=== PATIENT | male | born 1970 | race Caucasian/White ===

== ENCOUNTER 2017-07-14 07:53 | Observation (INO) | payer BC, SELFPAY ==
[2017-07-14] VITALS (30 sets, daily range): BP systolic 115–162; BP diastolic 76–109; PULSE 65–112; RESP 14–20; TEMP 36.4–37.1; O2SAT 91–99; BMI 37.0
--- NOTE | 2017-07-14 | IR_ITS ---
CARDIAC CATHETERIZATION DATE OF CATHETERIZATION:07/14/2017 11:43 AM PROCEDURES: 1. Left heart catheterization 2. Left ventriculogram 3. Selective coronary angiogram 4. Drug-eluting stent deployment to the mid codominant right coronary artery 5. Drug-eluting stent deployment to the proximal mid distal codominant circumflex artery INDICATION FOR TEST: 1. Acute non-ST elevation myocardial infarction 2. Coronary artery disease Informed consent was obtained prior to the procedure. COMPLICATIONS: None ESTIMATED BLOOD LOSS: Less than 10 ml. TECHNIQUE: One percent lidocaine used to anesthetize the right anterior aspect of the wrist. The right radial artery was accessed via the Seldinger technique. A 6 [place] sheath was placed in the right radial artery. 2.5 mg of verapamil, 800 mcg of nitroglycerin and 5000 U Heparin were given through the arterial sheath. The trap catheter was also used to perform left heart catheterization left ventriculogram and selective coronary angiogram. At the end the diagnostic angiogram and additional 9000 units of heparin was administered giving an ACT of 386 seconds. An LivelyFeed left guide catheter was used intubate the right coronary artery and a BMW wire was placed distally 3.25 x 38 mm Xience stent was deployed at 24 bre reducing the stenosis to 0%. NIYAH-3 flow was present before and after the procedure. Following this the same catheter was used intubate the left main artery. Ultimately a 3.25 x 38 mm and 3.25 x 15 mm Xience stent was placed in the proximal mid and distal segment in a contiguous manner. A 4 mm x 12 mm resolute Dax stent was then placed in the distal segment. Multiple balloons were used but eventually a 4 mm balloon was taken at 20 bre up and down the vessel in order to post dilate the 3 stents that were placed. NIYAH-3 flow was present before and after the procedure. Second ACT was 322 seconds therefore an additional 2000 units of heparin was administered with the closing ACT of 328 seconds. Patient was transferred to the postop holding area in stable condition ANGIOGRAPHIC RESULTS: 1. The left main artery normal 2. The left anterior descending artery has proximal 20-30% stenosis with mid vessel 10% stenoses 3. The circumflex artery is a codominant vessel and has a proximal concentric 90% stenosis followed by 70% stenoses and a distal eccentric 80-90% stenosis. 4. The right coronary artery is codominant and has mid vessel 10-20% stenoses and a distal long 80-90% stenosis followed by an additional 50% distal stenosis 5. The KHAN ventriculogram reveals normal 65% 6. The left ventricular end-diastolic pressure elevated at 20 mmHg IMPRESSION: 1. Critical 2 vessel coronary artery disease as described above 2. Successful stenting of the proximal mid distal circumflex artery critical disease reduced to 0% with 3 drug-eluting stents postdilated with a 4 mm noncompliant balloon at 20 bre 3. Successful stenting of the distal dominant right coronary artery severe disease reduced to 0% with 1 drug-eluting stent 4. Normal ejection fraction 5. Mildly elevated LVEDP PLAN: 1. Brilinta and aspirin 2. LDL less than 55 3. Control of hypertension 4. Avoidance of tobacco products 5. Cardiac rehabilitation
--- NOTE | 2017-07-14 07:55 | XR_ITS ---
XR chest 2V HISTORY: ITS.REASON: CHEST PAIN ORDERING PHYSICIAN: Sundar Briggs MD PATIENT AGE: 46 years COMPARISON: None available FINDINGS: The cardiomediastinal silhouette and pulmonary vascularity are within normal limits. The lungs are clear without infiltrates, suspicious nodules, or pleural effusions. No acute bony abnormalities. IMPRESSION: Negative chest, no acute finding
--- NOTE | 2017-07-14 08:14 | HMH.EDCP ---
ED Disposition Clinical Impression: Non-STEMI (non-ST elevated myocardial infarction), Hyperglycemia Disposition: Still a Patient Condition on Discharge: Serious - Critical Care Critical Care Time: Yes Attestation: On , the high probability of a clinically significant, sudden or life threatening deterioration of the following system(s) required my full and direct attention, intervention and personal management. The time I documented below is in addition to time spent performing reported procedures but includes the following listed in this critical care notation. Total Critical Care Time: 35 Vital system(s) involved:: Circulatory Failure (non-STEMI) My critical care processes included: Assessment & monitoring of V/S, Initial and Re-exams, Data Review/Interpretation, Coordinating Care, Medication Orders and management, Documentation Medical Decision Making Vital Signs: 07/14/17 07:57 07/14/17 08:19 07/14/17 08:40 Temperature 97.7 F Temperature Source Oral Pulse Rate [Right Brachial] 106 H 95 H 96 H Respiratory Rate 20 20 20 Blood Pressure [Right Arm] 159/100 147/104 162/106 Blood Pressure Mean [Right Arm] 119 118 124 Blood Pressure Source [Right Arm] Automatic Cuff Manual Cuff/ Doppler Automatic Cuff Blood Pressure Position [Right Arm] Sitting Sitting Sitting 02 Sat by Pulse Oximetry 99 96 93 L Oxygen Delivery Method Room Air Room Air Room Air 07/14/17 08:52 07/14/17 09:00 07/14/17 09:21 Temperature Temperature Source Pulse Rate [Right Brachial] 98 H 108 H 103 H Respiratory Rate 18 18 18 Blood Pressure [Right Arm] 156/102 158/103 150/100 Blood Pressure Mean [Right Arm] 120 121 116 Blood Pressure Source [Right Arm] Automatic Cuff Automatic Cuff Automatic Cuff Blood Pressure Position [Right Arm] Sitting Sitting Sitting 02 Sat by Pulse Oximetry 93 L 91 L 92 L Oxygen Delivery Method Room Air Room Air Room Air 07/14/17 09:48 Temperature Temperature Source Pulse Rate [Right Brachial] 101 H Respiratory Rate 16 Blood Pressure [Right Arm] 126/82 Blood Pressure Mean [Right Arm] 96 Blood Pressure Source [Right Arm] Automatic Cuff Blood Pressure Position [Right Arm] Sitting 02 Sat by Pulse Oximetry 95 Oxygen Delivery Method Room Air - Lab Data Lab Results 07/14/17 08:10: WBC 12.2 H, RBC 5.89, Hgb 17.9, Hct 54.8 H, MCV 93.0, MCH 30.4, MCHC 32.7, RDW 12.8, Plt Count 215, MPV 8.5, Neut % (Auto) 60.3, Lymph % (Auto) 31.9, [place] % (Auto) 5.6, Eos % (Auto) 1.4, Baso % (Auto) 0.8, Neut # (Auto) 7.4, Lymph # (Auto) 3.9, [place] # (Auto) 0.7, Eos # (Auto) 0.2, Baso # (Auto) 0.1 07/14/17 09:20: Sodium 133 L, Potassium 4.5, Chloride 98, Carbon Dioxide 26, Anion Gap 13.5, BUN 13, Creatinine 0.91, Estimated Creat Clear 199, Estimated GFR 89, Est GFR ( Amer) 108, Glucose 303 H, Calcium 8.9, Total Bilirubin 0.5, AST 94 H, ALT 59, Alkaline Phosphatase 67, Total Creatine Kinase 803 H*, CK-MB (CK-2) 85.8 H*, CK-MB (CK-2) Rel Index 10.7 H*, Troponin I 13.52 H, Total Protein 8.0, Albumin 3.9, Globulin 4.1 H, Albumin/Globulin Ratio 1.0 L Result diagrams: 07/14/17 08:10 07/14/17 09:20 Orders (Tests/Meds): ED MEDICATIONS Generic Name Dose Route Start Last Admin Trade Name Freq PRN Reason Stop Dose Admin Diphenhydramine HCl 50 mg 07/14/17 09:50 Benadryl 50mg/1ml Vial IV 07/14/17 09:51 ONCE ONE Fentanyl Citrate 25 mcg 07/14/17 09:50 Fentanyl 100mcg/2ml Vial IV 07/15/17 09:50 Q3MINP PRN Moderate to Severe Pain Fentanyl Citrate 50 mcg 07/14/17 09:50 Fentanyl 100mcg/2ml Vial IV 07/15/17 09:50 Q3MINP PRN Moderate to Severe Pain Flumazenil 0.2 mg 07/14/17 09:50 Romazicon 0.1mg/Ml 5ml Vial IV 07/14/17 23:00 NEEDED PRN Sedation Heparin Sodium (Porcine) 10,000 unit 07/14/17 09:50 Heparin 1,000 Units/Ml 10ml Vial (Chemical Operator) IV 07/14/17 13:50 NEEDED PRN Emergency Box Account Executive Heparin Sodium/Sodium Chloride 3,000
[2017-07-14 08:29] LABS: Basophils # 0.1 K/mm3 (0-0.2); Basophils % 0.8 % (0.1-2.0); Eosinophils # 0.2 K/mm3 (0.0-0.4); Eosinophils % 1.4 % (0.1-12.0); Hematocrit 54.8 % (42.0-52.0); Hemoglobin 17.9 g/dL (14.1-18.0); Lymphocytes # 3.9 K/mm3 (0.7-4.5); Lymphocytes % 31.9 K/mm3 (10-50); Mean Corpuscular HGB Conc 32.7 g/dL (31.8-35.4); Mean Corpuscular Hemoglobin 30.4 pg (27.0-31.2); Mean Platelet Volume 8.5 fl (7.4-10.4); Monocytes # 0.7 K/mm3 (0.1-1.0); Monocytes % 5.6 % (1.7-9.3); Neutrophils # 7.4 K/mm3 (1.8-7.8); Neutrophils % 60.3 % (37.0-80.0); Platelet Count 215 K/mm3 (142-424); Red Blood Count 5.89 M/mm3 (4.60-6.20); Red Cell Distribution Width 12.8 % (11.5-17.5); White Blood Count 12.2 K/mm3 (4.8-10.8)
[2017-07-14 09:13] LABS: Alanine Aminotransferase 59 U/L (12-78); Albumin Level 3.9 gm/dL (3.4-5.0); Alkaline Phosphatase 67 U/L (46-116); Bilirubin,Total 0.5 mg/dL (0.2-1.0); Blood Urea Nitrogen 13 mg/dL (7-18); Calcium 8.9 mg/dL (8.5-10.1); Carbon Dioxide 26 mmol/L (21.0-32.0); Creatinine Clearance Estimated 199 mL/min (0-300); Creatinine,Serum 0.91 mg/dL (0.70-1.30); Estimated Glomerular Filt Rate 89 ml/min (>60); GFR (African American) 108 ML/MIN (>60); Globulin 4.1 gm/dl (1.3-3.2); Glucose 303 mg/dL (74-106)
--- NOTE | 2017-07-14 09:48 | PC.NURSE ---
LAB CALLED TO REPORT TROPONIN =13. DR GUDINO CALLED AND HERE TO SEE PATIENT. PATIENT TO BE SENT TO [facility]PERATIONS MANAGER
--- NOTE | 2017-07-14 09:52 | PC.NURSE ---
PT SPEAKING WITH DR GUDINO AT THIS TIME. 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
[2017-07-14 09:57] LABS: Anion Gap 13.5 mEq/L (5-15); CKMB Relative Index 10.7 U/L (0-4.0); Chloride 98 mmol/L (98-107); Creatine Kinase 803 U/L (39-308); Sodium 133 mmol/L (136-145)
[2017-07-14 10:00] LABS: Creatine Kinase MB 85.8 mg/ml (0.0-3.6); Troponin I 13.52 ng/ml (0.00-0.06)
[2017-07-14 10:01] LABS: Aspartate Amino Transferase 94 U/L (15-37); Potassium 4.5 mmoL/L (3.5-5.1)
--- NOTE | 2017-07-14 10:12 | HMH.CARDCON2 ---
History of Present Illness Consult date: 07/14/17 Consult reason: chest pain Chief complaint: chest pain History of present illness: 46 yo WM seen in ER for chest pain with radiation to neck and back. Symptoms started yesterday and have been present to some degree all night. Symptoms resolved in ER with NTG paste. EKG is sinus with some slight ST segment depression in the anterior leads. Initial troponin is 15. Cardiology consulted for evaluation. Pt is a 2 ppd smoker for >20 yrs. relates some FSBS in the 200-400 range when she checks it but pt has never been diagnosed with DM. No history of HTN or HLD. Pt states he doesn't go to the doctor. Review of Systems - *Cardiovascular Reports chest pain - *Respiratory Reports shortness of breath - *Gastrointestinal Reports nausea, Denies vomiting - *Neurologic Reports tingling [facility] History Medical History: Denies:: Cancer, Diabetes Mellitus Type 1, Diabetes Mellitus Type 2, MRSA Amputation: No Fractures: No - *Social History Smoking Status: Current every day smoker Tobacco Type: cigarettes Alcohol Intake: never - Psychiatric History Expresses thoughts of harming self/others: None Suicide Plan Description: No Plan Meds Home Medications Medication Instructions Recorded Confirmed Type No Known Home Medications [No 07/14/17 07/14/17 History Known Home Medications] Allergies Allergy/AdvReac Type Severity Reaction Status Date / Time No Known Allergies Allergy Verified 07/14/17 07:54 Exam Vital signs and Labs for Last 24 Hours: Temp Pulse Resp BP Pulse Ox 97.7 F 101 H 16 126/82 95 07/14/17 07:57 07/14/17 09:48 07/14/17 09:48 07/14/17 09:48 07/14/17 09:48 Laboratory Results - last 24 hr 07/14/17 08:10: WBC 12.2 H, RBC 5.89, Hgb 17.9, Hct 54.8 H, MCV 93.0, MCH 30.4, MCHC 32.7, RDW 12.8, Plt Count 215, MPV 8.5, Neut % (Auto) 60.3, Lymph % (Auto) 31.9, [place] % (Auto) 5.6, Eos % (Auto) 1.4, Baso % (Auto) 0.8, Neut # (Auto) 7.4, Lymph # (Auto) 3.9, [place] # (Auto) 0.7, Eos # (Auto) 0.2, Baso # (Auto) 0.1 07/14/17 09:20: Sodium 133 L, Potassium 4.5, Chloride 98, Carbon Dioxide 26, Anion Gap 13.5, BUN 13, Creatinine 0.91, Estimated Creat Clear 199, Estimated GFR 89, Est GFR ( Amer) 108, Glucose 303 H, Calcium 8.9, Total Bilirubin 0.5, AST 94 H, ALT 59, Alkaline Phosphatase 67, Total Creatine Kinase 803 H*, CK-MB (CK-2) 85.8 H*, CK-MB (CK-2) Rel Index 10.7 H*, Troponin I 13.52 H, Total Protein 8.0, Albumin 3.9, Globulin 4.1 H, Albumin/Globulin Ratio 1.0 L I & O for Last 24 hours: Intake & Output 07/11/17 07/12/17 07/13/17 07/14/17 11:59 11:59 11:59 11:59 Weight 312 lb - *Routine Neck Exam Absent: JVD, carotid bruit - *Routine Respiratory Exam Present: CTA bilaterally - *Routine Cardiovascular Exam Present: RRR. Absent: murmur, gallop, rubs - *Routine Extremities Exam Absent: edema - *Routine Neurological Exam Present: alert, oriented X3, moving all extremities Results 07/14/17 08:10 07/14/17 09:20 Cardiac Enzymes 07/14/17 Range/Units 09:20 AST 94 H (15-37) U/L CK-MB (CK-2) 85.8 H* (0.0-3.6) mg/ml Troponin I 13.52 H (0.00-0.06) ng/ml CBC 07/14/17 Range/Units 08:10 WBC 12.2 H (4.8-10.8) K/mm3 RBC 5.89 (4.60-6.20) M/mm3 Hgb 17.9 (14.1-18.0) g/dL Hct 54.8 H (42.0-52.0) % Plt Count 215 (142-424) K/mm3 Neut # (Auto) 7.4 (1.8-7.8) K/mm3 Lymph # (Auto) 3.9 (0.7-4.5) K/mm3 [place] # (Auto) 0.7 (0.1-1.0) K/mm3 Eos # (Auto) 0.2 (0.0-0.4) K/mm3 Baso # (Auto) 0.1 (0-0.2) K/mm3 Comprehensive Metabolic Panel 07/14/17 Range/Units 09:20 Sodium 133 L (136-145) mmol/L Potassium 4.5 (3.5-5.1) mmoL/L Chloride 98 (98-107) mmol/L Carbon Dioxide 26 (21.0-32.0) mmol/L BUN 13 (7-18) mg/dL Creatinine 0.91 (0.70-1.30) mg/dL Glucose 303 H (74-106) mg/dL Calcium 8.9 (8.5-10.1) mg/dL AST 94 H (15-37) U/L ALT 59 (1
--- NOTE | 2017-07-14 10:15 | P.CONS_ITS ---
History of Present Illness Consult date: 07/14/17 Consult reason: chest pain Chief complaint: chest pain History of present illness: 46 yo WM seen in ER for chest pain with radiation to neck and back. Symptoms started yesterday and have been present to some degree all night. Symptoms resolved in ER with NTG paste. EKG is sinus with some slight ST segment depression in the anterior leads. Initial troponin is 15. Cardiology consulted for evaluation. Pt is a 2 ppd smoker for >20 yrs. relates some FSBS in the 200-400 range when she checks it but pt has never been diagnosed with DM. No history of HTN or HLD. Pt states he doesn't go to the doctor. Review of Systems - *Cardiovascular Reports chest pain - *Respiratory Reports shortness of breath - *Gastrointestinal Reports nausea, Denies vomiting - *Neurologic Reports tingling [facility] History Medical History: Denies:: Cancer, Diabetes Mellitus Type 1, Diabetes Mellitus Type 2, MRSA Amputation: No Fractures: No - *Social History Smoking Status: Current every day smoker Tobacco Type: cigarettes Alcohol Intake: never - Psychiatric History Expresses thoughts of harming self/others: None Suicide Plan Description: No Plan Meds Home Medications Medication Instructions Recorded Confirmed Type No Known Home Medications [No 07/14/17 07/14/17 History Known Home Medications] Allergies Allergy/AdvReac Type Severity Reaction Status Date / Time No Known Allergies Allergy Verified 07/14/17 07:54 Exam Vital signs and Labs for Last 24 Hours: Temp Pulse Resp BP Pulse Ox 97.7 F 101 H 16 126/82 95 07/14/17 07:57 07/14/17 09:48 07/14/17 09:48 07/14/17 09:48 07/14/17 09:48 Laboratory Results - last 24 hr 07/14/17 08:10: WBC 12.2 H, RBC 5.89, Hgb 17.9, Hct 54.8 H, MCV 93.0, MCH 30.4, MCHC 32.7, RDW 12.8, Plt Count 215, MPV 8.5, Neut % (Auto) 60.3, Lymph % (Auto) 31.9, [place] % (Auto) 5.6, Eos % (Auto) 1.4, Baso % (Auto) 0.8, Neut # (Auto) 7.4 , Lymph # (Auto) 3.9, [place] # (Auto) 0.7, Eos # (Auto) 0.2, Baso # (Auto) 0.1 07/14/17 09:20: Sodium 133 L, Potassium 4.5, Chloride 98, Carbon Dioxide 26, Anion Gap 13.5, BUN 13, Creatinine 0.91, Estimated Creat Clear 199, Estimated GFR 89, Est GFR ( Amer) 108, Glucose 303 H, Calcium 8.9, Total Bilirubin 0.5, AST 94 H, ALT 59, Alkaline Phosphatase 67, Total Creatine Kinase 803 H*, CK -MB (CK-2) 85.8 H*, CK-MB (CK-2) Rel Index 10.7 H*, Troponin I 13.52 H, Total Protein 8.0, Albumin 3.9, Globulin 4.1 H, Albumin/Globulin Ratio 1.0 L I & O for Last 24 hours: Intake & Output 07/11/17 07/12/17 07/13/17 07/14/17 11:59 11:59 11:59 11:59 Weight 312 lb - *Routine Neck Exam Absent: JVD, carotid bruit - *Routine Respiratory Exam Present: CTA bilaterally - *Routine Cardiovascular Exam Present: RRR. Absent: murmur, gallop, rubs - *Routine Extremities Exam Absent: edema - *Routine Neurological Exam Present: alert, oriented X3, moving all extremities Results 07/14/17 08:10 07/14/17 09:20 Cardiac Enzymes 07/14/17 Range/Units 09:20 AST 94 H (15-37) U/L CK-MB (CK-2) 85.8 H* (0.0-3.6) mg/ml Troponin I 13.52 H (0.00-0.06) ng/ml CBC 07/14/17 Range/Units 08:10 WBC 12.2 H (4.8-10.8) K/
--- NOTE | 2017-07-14 10:18 | PC.NURSE ---
LAB CALLED WITH CRITICALS CK:803 CKMB: 85.[address] FIERRO AWARE
--- NOTE | 2017-07-14 10:58 | PC.NURSE ---
TO ENAMEL PULVERIZER PER W/C.
[2017-07-14 15:37] LABS: CATHL Activated Clotting Time 386 SEC (74-125)
[2017-07-14 15:37] LABS: CATHL Activated Clotting Time 328 SEC (74-125)
[2017-07-14 15:38] LABS: CATHL Activated Clotting Time 322 SEC (74-125)
[2017-07-15] VITALS (8 sets, daily range): BP systolic 141–181; BP diastolic 90–109; PULSE 100–110; RESP 17–20; TEMP 36.8–37.1; O2SAT 91–96
--- NOTE | 2017-07-15 02:38 | PC.NURSE ---
PT IS A&OX3. HE DENIES PAIN AND CHEST PAIN. DENIES SOB. HE HAS SLEPT SITTING UP IN THE BED. FAMILY AT THE BEDSIDE. NSR ON TELEMETRY. HE HAS AMBULATED TO THE BATHROOM. STEADY GAIT. POSITIVE RADIAL AND PEDAL PULSES. CAPILLARY REFILL <3. RIGHT RADIAL DSG IS C/D/I. PT EDUCATED TO NOT HAVE ANY STRENOUS ACTIVITY WITH RIGHT ARM, EDUCATED TO NOTIFY STAFF OF ANY THROBBING OR PULSATING FEELING, OR IF HE NOTICES ANY BRUISING, BLEEDING, OR SWELLING. PT VERBALIZED UNDERSTANDING.
--- NOTE | 2017-07-15 05:56 | PC.NURSE ---
NURSE WAS NOTIFIED OF PTS ELEVATED BP
--- NOTE | 2017-07-15 06:55 | PC.NURSE ---
bp rechecked. nurse aware
[2017-07-15 06:57] LABS: Anion Gap 15.1 mEq/L (5-15); Blood Urea Nitrogen 10 mg/dL (7-18); Carbon Dioxide 23 mmol/L (21.0-32.0); Chloride 101 mmol/L (98-107); Chol/HDL Ratio 5.5 (1-3.5); Cholesterol 164 mg/dL (140-200); Creatinine Clearance Estimated 200 mL/min (0-300); Creatinine,Serum 0.85 mg/dL (0.70-1.30); Estimated Glomerular Filt Rate 96 ml/min (>60); GFR (African American) 116 ML/MIN (>60); Glucose 297 mg/dL (74-106); HDL Cholesterol 30 mg/dL (27-67); LDL Cholesterol 88 mg/dL (0-130); Potassium 4.1 mmoL/L (3.5-5.1); Sodium 135 mmol/L (136-145); Triglycerides 228 mg/dL (30-200); VLDL Cholesterol 46 mg/dL (0-40)
[2017-07-15 07:19] LABS: Hemoglobin A1C 10.5 % (0.0-7.0)
--- NOTE | 2017-07-15 08:53 | HMH.HPDC ---
General - General Admission date: 07/14/17 Discharge date: 07/15/17 *Admission Date: 07/14/17 *Chief complaint: chest pain *History of present illness: this wm presented to ed with chest pain -he patient complains of chest pain that started at 9 PM last evening. It has been present all night long, but did decrease at times. Pain is located in the sternal area and radiates to his left anterior chest and shoulder area. Denies shortness of breath or nausea. Has some tingling in his left arm. No diaphoresis. He had the same pain a week ago that lasted a few hours, at which time he also vomited. Current pain is 6/10. He took Tylenol at home for the pain. He does not have any known heart disease, hypertension, diabetes, or hyperlipidemia. He is a smoker [facility] History I have reviewed the patient's past medical history: Yes Medical History: Denies:: Cancer, Diabetes Mellitus Type 1, Diabetes Mellitus Type 2, MRSA Amputation: No Fractures: No - *Social History Educational Level: Completed High School Smoking Status: Current every day smoker Tobacco Type: cigarettes Alcohol Intake: current Alcohol Intake Frequency:: holidays/special occasions only Occupational Status: employed Household Members: significant other - Psychiatric History Expresses thoughts of harming self/others: None Suicide Plan Description: No Plan *Family Hx:: Unable to obtain Review of Systems - Review of Systems Review of systems:: pertinent systems reviewed and negative unless documented below - Constitutional Denies fever(s) - Eyes Denies change in vision - ENT Denies sinus pain - *Cardiovascular Denies chest pain at rest - *Respiratory Denies cough - *Gastrointestinal Denies abdominal pain - *Musculoskeletal Denies joint pain, Denies joint swelling - Integumentary/Breasts Denies rash - *Neurologic Reports tingling, Denies tingling/numbness/burning sensations, Denies seizure-like activity - Psychiatric Denies anxiety Exam Vital signs and Labs for Last 24 Hours: Temp Pulse Resp BP Pulse Ox 98.3 F 104 H 20 141/90 93 L 07/15/17 08:00 07/15/17 08:00 07/15/17 08:00 07/15/17 08:00 07/15/17 08:00 Laboratory Results - last 24 hr 07/15/17 06:15: Sodium 135 L, Potassium 4.1, Chloride 101, Carbon Dioxide 23, Anion Gap 15.1 H, BUN 10, Creatinine 0.85, Estimated Creat Clear 200, Estimated GFR 96, Est GFR ( Amer) 116, Glucose 297 H, Triglycerides 228 H, Cholesterol 164, LDL Cholesterol 88, VLDL Cholesterol 46 H, HDL Cholesterol 30, Cholesterol/HDL Ratio 5.5 H 07/15/17 06:15: Hemoglobin A1c 10.5 H I & O for Last 24 hours: Intake & Output 07/12/17 07/13/17 07/14/17 07/15/17 11:59 11:59 11:59 11:59 Intake Total 1230 / 1230 Output Total 900 / 900 Balance 330 / 330 Weight 294 lb - Constitutional no acute distress - *Routine HEENT Exam Head: Present: normocephalic Eye: Present: EOMI, PERRL ENT: Present: mucous membranes moist - *Routine Neck Exam Present: supple - *Routine Respiratory Exam Present: CTA bilaterally - *Routine Cardiovascular Exam Present: RRR, murmur - *Routine Abdominal Exam Present: soft, organomegaly - *Routine Extremities Exam Present: full ROM. Absent: edema - *Routine Skin Exam Present: intact - *Routine Neurological Exam Present: alert, oriented X3, CN II-XII intact Hospital Course Hospital Course: pt with pos cardiac enz and had card cath with stents he left main artery normal 2. The left anterior descending artery has proximal 20-30% stenosis with mid vessel 10% stenoses 3. The circumflex artery is a codominant vessel and has a proximal concentric 90% stenosis followed by 70% stenoses and a distal eccentric 80-90% stenosis. 4. The right coronary artery is codominant and has mid vessel 10-20% stenoses and a distal long 80-90% stenosis followed by an additional 50% distal stenosis 5. The KHAN ventriculogram reveals normal 65% 6
--- NOTE | 2017-07-15 13:43 | P.CONPHA_ITS ---
[facility] Pharmacy VTE Monitoring - Patient Demographics Admission date: 07/14/17 Report Date: 07/15/17 Time: 13:43 Allergies/Adverse Reactions: Patient Allergies No Known Allergies Allergy (Verified 07/14/17 07:54) Height: 1.96 m Weight: 133.356 kg - VTE Risk Labs: VTE Related Lab Results Hgb 17.9 g/dL (14.1-18.0) 07/14/17 08:10 Hct 54.8 % (42.0-52.0) H 07/14/17 08:10 Plt Count 215 K/mm3 (142-424) 07/14/17 08:10 BUN 10 mg/dL (7-18) 07/15/17 06:15 Creatinine 0.85 mg/dL (0.70-1.30) 07/15/17 06:15 Estimated Creat Clear 200 mL/min (0-300) 07/15/17 06:15 Was VTE Risk Assessment Performed: Yes VTE Score: 2 VTE Risk Level: Very Low Risk - Prophylaxis VTE Prophylaxis Ordered?: Yes Types of VTE Prophylaxis: TEDS Knee High Location of Applied Device: Bilateral Lower Extremeties
== END 2017-07-15 10:36 | disposition home or self-care (01) ==
LOC: ER 09:54 → CATHLAB 11:24 → ICU 14:18
PROVIDERS: Internal Medicine; Physician Assistant; Admitting Provider Emergency Medicine; Emergency Provider Emergency Medicine; Visit Provider Emergency Medicine
DX: I21.4 Non-ST elevation (NSTEMI) myocardial infarction (principal); E66.9 Obesity, unspecified; R73.9 Hyperglycemia, unspecified; Z72.0 Tobacco use
CPT/HCPCS: 36415; 71046; 80048; 80053; 80061; 82550; 82553; 83036; 84484; 85025; 85347; 92928; 93005; 93041; 93458; 99152; 99153; 99284; C1725; C1769; C1876; C9600; G0378; J1644; J2405; Q9967

== ENCOUNTER → 2017-07-28 13:37 | Outpatient (CLI) | payer BC, SELFPAY ==
--- NOTE | 2017-07-28 13:45 | CA_ITS ---
PROCEDURE: 2-D M-mode and color Doppler study INDICATIONS FOR THE TEST: Chest pain+ COPD Heart Murmur Tobacco Smoking+ Palpitations Fatigue Syncope Edema Hypertension+Diabetes Mellitus+ Rheumatic Fever SOB+JAEGER Obesity+Hyperlipidemia+ Family History HD Additional History CAD, NSTEMI, RBBB PATIENT INFORMATION HEIGHT: 77 WEIGHT: 300 GENDER: Male B/P: 2-D/M-MODE INTERPRETATION: 2-D MEASUREMENTS OBSERVED VALUES IN CMS Right Ventricular Dimension (RVDd) 3.0 Interventricular Septum (Thickness)(IVsd) 1.2 Left Ventricular Internal Dimensions(LVIDd) 4.7 Left Ventricular Posterior Wall (Thickness)(LVPWd) 1.1 Aortic Root 3.7 Aortic Cusp Separation 2.8 Left Atrial Dimensions (LAD) 3.2 2D 1. Technically difficult study because of the patient's factor and poor acoustic windows 2. The left atrium is mildly enlarged, left ventricle is normal size, there is mild concentric left ventricular hypertrophy, visually estimated ejection fraction 55% with no obvious regional wall motion abnormality. 3. The right atrium and right ventricle are normal size and contractility. 4. The aortic valve is minimally thickened and fibrosed. 5. The mitral and tricuspid valve are grossly normal. 6. No significant pericardial effusion noted. 7. The pulmonic valve is poorly visualized. DOPPLER INTERROGATION: Doppler interrogation of the aortic, mitral and tricuspid valvular presence of mild mitral and tricuspid regurgitation, tricuspid and jet velocity is insufficient for calculation of the right ventricular systolic pressure, grade 1 diastolic dysfunction seen with tissue Doppler evidence of raised left atrial pressure. CONCLUSION: 1. Technically difficult study because of the patient's factor and poor acoustic windows 2. Mildly enlarged left atrium, normal left ventricular size, mild concentric left ventricular hypertrophy, visually estimated ejection fraction 55% with no obvious regional wall motion abnormality, grade 1 diastolic dysfunction seen with tissue Doppler evidence of raised left atrial pressure. 3. Mild mitral and tricuspid regurgitation 4. No significant pericardial effusion noted.
== END ==
PROVIDERS: PCP Family Medicine; Visit Provider Internal Medicine Cardiovascular Disease
DX: E11.9 Type 2 diabetes mellitus without complications (principal); E78.4 Other hyperlipidemia; E66.9 Obesity, unspecified; I10 Essential (primary) hypertension; I25.118 Atherosclerotic heart disease of native coronary artery with other forms of angina pectoris; I20.9 Angina pectoris, unspecified; Z72.0 Tobacco use; R94.31 Abnormal electrocardiogram [ECG] [EKG]; R00.0 Tachycardia, unspecified; I21.4 Non-ST elevation (NSTEMI) myocardial infarction; I45.10 Unspecified right bundle-branch block
CPT/HCPCS: 93306

== ENCOUNTER 2017-08-04 09:54 | Outpatient (RCR) | payer BC, SELFPAY | END 2017-10-11 11:14 | disposition home or self-care (01) | LOC: PT 09:54 | PROVIDERS: PCP Family Medicine; Visit Provider Internal Medicine | DX: Z95.5 Presence of coronary angioplasty implant and graft (principal) | CPT/HCPCS: 93798 ==

== ENCOUNTER → 2017-08-07 10:58 | Outpatient (CLI) | payer BC, SELFPAY | PROVIDERS: PCP Family Medicine; Visit Provider Internal Medicine Cardiovascular Disease | DX: G47.9 Sleep disorder, unspecified (principal); R06.83 Snoring; R53.83 Other fatigue; I10 Essential (primary) hypertension; E66.9 Obesity, unspecified ==

== ENCOUNTER → 2017-08-10 08:58 | Outpatient (CLI) | payer BC, SELFPAY | PROVIDERS: PCP Family Medicine; Visit Provider Family Medicine | DX: E11.65 Type 2 diabetes mellitus with hyperglycemia (principal) | CPT/HCPCS: 97802; G0108 ==

== ENCOUNTER 2017-12-07 07:37 | Observation (INO) ==
[2017-12-07 07:58] LABS: Basophils # 0.1 K/mm3 (0-0.2); Basophils % 0.8 % (0.1-2.0); Eosinophils # 0.2 K/mm3 (0.0-0.4); Eosinophils % 2.4 % (0.1-12.0); Hematocrit 57.6 % (42.0-52.0); Lymphocytes # 3.3 K/mm3 (0.7-4.5); Lymphocytes % 32.8 K/mm3 (10-50); Mean Corpuscular HGB Conc 31.2 g/dL (31.8-35.4); Mean Corpuscular Hemoglobin 29.3 pg (27.0-31.2); Mean Corpuscular Volume 93.8 fl (80-94); Mean Platelet Volume 8.2 fl (7.4-10.4); Monocytes # 0.6 K/mm3 (0.1-1.0); Monocytes % 5.7 % (1.7-9.3); Neutrophils # 5.8 K/mm3 (1.8-7.8); Neutrophils % 58.2 % (37.0-80.0); Platelet Count 201 K/mm3 (142-424); Red Blood Count 6.14 M/mm3 (4.60-6.20); Red Cell Distribution Width 13.6 % (11.5-17.5); White Blood Count 9.9 K/mm3 (4.8-10.8)
[2017-12-07 08:04] LABS: Anion Gap 13.6 mEq/L (5-15); Calcium 9.2 mg/dL (8.5-10.1); Potassium 4.6 mmoL/L (3.5-5.1)
[2017-12-07 08:18] LABS: Activated Partial Thrombo Time 28.3 seconds (23.6-34.0); INR 0.94 (0.9-1.1); Prothrombin Time 9.7 seconds (9.4-11.8)
--- NOTE | 2017-12-07 08:29 | Emergency Department Note ---
ED Disposition Clinical Impression: Unstable angina, CAD (coronary artery disease), Diabetes, Tobacco use disorder Disposition: Still a Patient Condition on Discharge: Fair Referrals: Pierce Borges MD [Primary Care Provider] - - Critical Care Critical Care Time: No Attestation: On 12/07/17, the high probability of a clinically significant, sudden or life threatening deterioration of the following system(s) required my full and direct attention, intervention and personal management. The time I documented below is in addition to time spent performing reported procedures but includes the following listed in this critical care notation. Medical Decision Making - [place] Inquiry Pt receiving controlled substance: No [place] was queried for this patient: No Vital Signs: 12/07/17 07:39 12/07/17 08:01 Temperature 97.6 F 97.6 F Temperature Source Oral Oral Pulse Rate [Right Brachial] 125 H 103 H Respiratory Rate 20 20 Blood Pressure [Right Arm] 146/95 155/76 Blood Pressure Mean [Right Arm] 112 102 Blood Pressure Source [Right Arm] Automatic Cuff Automatic Cuff Blood Pressure Position [Right Arm] Supine Sitting 02 Sat by Pulse Oximetry 96 91 L Oxygen Delivery Method Room Air Room Air - Lab Data Lab Results 12/07/17 07:40: WBC 9.9, RBC 6.14, Hgb 18.0, Hct 57.6 H, MCV 93.8, MCH 29.3, MCHC 31.2 L, RDW 13.6, Plt Count 201, MPV 8.2, Neut % (Auto) 58.2, Lymph % (Auto ) 32.8, [place] % (Auto) 5.7, Eos % (Auto) 2.4, Baso % (Auto) 0.8, Neut # (Auto) 5.8, Lymph # (Auto) 3.3, [place] # (Auto) 0.6, Eos # (Auto) 0.2, Baso # (Auto) 0.1 12/07/17 07:40: Troponin I < 0.02 12/07/17 07:40: Sodium 138, Potassium 4.6, Chloride 100, Carbon Dioxide 29, Anion Gap 13.6, BUN 17, Creatinine 0.99, Estimated Creat Clear 181, Estimated GFR 81, Est GFR ( Amer) 98, Glucose 256 H, Calcium 9.2 12/07/17 07:40: PT 9.7, INR 0.94, APTT 28.3 Result diagrams: 12/07/17 07:40 12/07/17 07:40 Orders (Tests/Meds): ED MEDICATIONS Generic Name Dose Route Start Last Admin Trade Name Freq PRN Reason Stop Dose Admin Nitroglycerin 0.4 mg 12/07/17 07:52 12/07/17 07:52 Nitrostat 0.4mg Sl Tablet SL 01/06/18 07:51 0.4 mg Q5MINP PRN Administration Chest Pain Discontinued Medications Generic Name Dose Route Start Last Admin Trade Name Freq PRN Reason Stop Dose Admin Aspirin 324 mg 12/07/17 07:47 12/07/17 07:52 Aspirin 81mg Chewable Tablet PO 12/07/17 07:48 324 mg ONCE ONE Administration Nitroglycerin 0.5 gm 12/07/17 08:22 Nitroglycerin 1 Inch Oint Udp TD 12/07/17 08:23 ONCE ONE ORDERS Category Date Time Status B-Type Natriuretic Peptide Stat Lab 12/07/17 08:22 Ordered 12-lead EKG Request [ECG Request by /Cori] Stat Y 12/07/17 07:46 Ordered - Radiology Data #1 Image(s): Chest Image Reviewed: Yes I reviewed the patient's radiology image, Yes I have reviewed radiologist's interpretation Preliminary Findings: Normal/NAD Please see the radiologist official report, - ECG Data Tracing #1 Normal sinus rhythm 100/min Q-wave in inferior leads nonspecific ST segment changes and one beat at the V3, no acute findings. ECG initial impression date: 12/07/17 ECG initial impression time: 07:40 Medical Decision Narrative: 0840 Am The patient chest pain was completely relieved after applying a Nitropaste. I contacted Dr. Marie his cyanide pot hardener who advised for admission and he will cath him in the morning. I placed a phone call from his primary care physician Dr. Borges for admission. Chest Pain HPI - General Chief Complaint: Chest Pain Stated Complaint: CHEST PAIN Time Seen by Provider: 12/07/17 08:00 Mode of Arrival: Family Vehicle Limitations: No Limitations Description of Symptoms (Recalled from ER Triage Doc. by RN): C/O MID STERNAL CHEST PAIN FOR SEVERAL DAYS WITH SOB. HISTORY OF CA 07/30 WITH STENTS X 4 - History of Present Illness HPI narrative: 46 years old white male smoker and diabetic with prior history of coronary artery disease including non-ST elevation [place] in July 14, 2017. He was treated with 2 drug-eluting stents to the RCA by the Cynthia he is currently on aspirin and Brilinta. Today the patient presents with 4-5 days history of retrosternal dull chest pain associated with exertional dyspnea relieved by rest. He denied palpitations hemoptysis hematemesis coffee-ground emesis bleeding per rectum melanotic stool nausea vomiting or diarrhea. He denied having weakness weakness or loss of consciousness. MD complaint: chest pain indicative of cardiac Onset (ago): day(s) (5 days.) Duration: constant Activity at onset: during rest Pain location: substernal Severity: moderate Severity scale (1-10): 4 Quality: dull Pain radiation: none Relieving factors: rest Exacerbating factors: exertion Associated symptoms: dyspnea Risk Factors for CAD: Hypertension, Hypercholesterolemia, Diabetes, Smoking Treatments prior to or on arrival for Cardiac Chest Pain: aspirin - Related Data Home Medications Medication Instructions Recorded Confirmed empagliflozin 25 mg tablet 25 mg PO DAILY tab 08/18/17 12/07/17 metformin ER 500 mg 24 hr 1,000 mg PO BID tab 08/18/17 12/07/17 tablet,extended release Acetaminophen [Acetaminophen 325mg 650 mg PO Q4HP PRN 12/07/17 12/07/17 tab] Aspirin [Aspirin 81mg EC Tab] 81 mg PO DAILY 12/07/17 12/07/17 Atorvastatin Calcium [Lipitor 40mg 40 mg PO HS 12/07/17 12/07/17 Tablet] Bisoprolol Fumarate 10 mg PO DAILY 12/07/17 12/07/17 Lisinopril [Zestril 5mg 5 mg PO DAILY 12/07/17 12/07/17 Tablet] Ticagrelor [Brilinta 90mg Tablet] 90 mg PO BID 12/07/17 12/07/17 Allergies Allergy/AdvReac Type Severity Reaction Status Date / Time No Known Allergies Allergy Verified 07/14/17 07:54 [facility] History I have reviewed the patient's past medical history: Yes Medical History: Reports:: Coronary Artery Disease, Diabetes Mellitus Type 2, Hyperlipidemia, Hypertension Denies:: Cancer, Diabetes Mellitus Type 1, Internal Pacemaker, MRSA Other Surgeries: Yes: Coronary Stent, Other. No: Pacemaker Amputation: No Fractures: No - Social History Smoking Status: Current every day smoker Tobacco Type: cigarettes Alcohol Intake: never Alcohol Intake Frequency:: holidays/special occasions only Occupational Status: employed Household Members: significant other - Psychiatric History Expresses thoughts of harming self/others: None Suicide Plan Description: No Plan Family Hx:: Unable to obtain ROS Obtained: Yes All systems reviewed & no additional complaints Physical Exam - General General appearance: alert, in no apparent distress - Head Head exam: atraumatic, normocephalic, normal inspection - Eye Eye exam: Present: normal appearance, PERRL, EOMI - ENT ENT exam: Present: normal exam, normal oropharynx, mucous membranes moist, TM's normal bilaterally, normal external ear exam - Neck Neck exam: Present: normal inspection, full ROM, trachea midline. Absent: tenderness, meningismus, lymphadenopathy - Chest Chest inspection: Present: normal inspection, symmetric chest wall rise. Absent : tenderness - Respiratory Respiratory exam: Present: normal lung sounds bilaterally. Absent: respiratory distress - Cardiovascular Cardiovascular exam: Present: regular rate, normal rhythm, other (Distant heart sound due to the patient's large chest and obesity.). Absent: JVD - Abdominal Exam Abdominal exam: Present: soft, normal bowel sounds. Absent: distention, tenderness, guarding, rebound, rigidity - Extremities Exam Extremities exam: Present: normal inspection, full ROM, normal capillary refill , other (1+ edema of both lower extremities.). Absent: tenderness, calf tenderness - Back Exam Back exam: Present: normal inspection. Absent: tenderness - Neurological Exam Neurological exam: Present: alert, oriented X3, CN II-XII intact, motor sensory deficit, reflexes normal - Psychiatric Psychiatric exam: Present: normal affect, normal mood - Skin Skin exam: Present: warm, dry, intact, normal color, other - Lymphatic Lymphatic Findings: no adenopathy
--- NOTE | 2017-12-07 11:28 | Pharmacy Consult Notes ---
[facility] [place] Pharmacy VTE Monitoring - Patient Demographics Admission date: 12/07/17 Report Date: 12/07/17 Time: 11:28 Allergies/Adverse Reactions: Patient Allergies No Known Allergies Allergy (Verified 07/14/17 07:54) Height: 1.96 m Weight: 143.052 kg Patient Problems: Current Active Problems Unstable angina (Acute) Diabetes (Acute) Tobacco use disorder (Acute) CAD (coronary artery disease) (Chronic) - VTE Risk Labs: VTE Related Lab Results Hgb 18.0 g/dL (14.1-18.0) 12/07/17 07:40 Hct 57.6 % (42.0-52.0) H 12/07/17 07:40 Plt Count 201 K/mm3 (142-424) 12/07/17 07:40 PT 9.7 seconds (9.4-11.8) 12/07/17 07:40 INR 0.94 (0.9-1.1) 12/07/17 07:40 APTT 28.3 seconds (23.6-34.0) 12/07/17 07:40 BUN 17 mg/dL (7-18) 12/07/17 07:40 Creatinine 0.99 mg/dL (0.70-1.30) 12/07/17 07:40 Estimated Creat Clear 181 mL/min (0-300) 12/07/17 07:40 Was VTE Risk Assessment Performed: No VTE Score: 1 Clinical Trial Participant: No - Prophylaxis VTE Prophylaxis Ordered?: Yes Types of VTE Prophylaxis: TEDS Knee High
--- NOTE | 2017-12-07 12:08 | Consult Report ---
History of Present Illness Consult date: 12/07/17 Requesting physician: Pierce Borges Consult reason: chest pain Chief complaint: chest pain Additional Medical History:: 1. Coronary artery disease A. Non-ST elevation [place], 07/2017 B. [place] to LAD and RCA, 07/2017 2. DM, diagnosed 07/2017 3. HTN 4. HLD, on statin 5. Tobacco use, continued History of present illness: 46-year-old white male with recent non-ST elevation [place] in July 2017 with subsequent stenting of his right coronary artery and LAD maintains that he has been compliant with his dual antiplatelet therapy. Patient was brought to the emergency department today due to recurrent episodes of chest pain over the last 2-3 days. Symptoms originally occurring with exertion with associated shortness of breath that would resolve with rest, but now occurring at rest. Patient received nitroglycerin in the department with complete resolution of discomfort and no recurrence. EKG was sinus rhythm with evidence of previous inferior [place] without acute change at this time. Initial troponin is normal. Patient is comfortable and resting in the bed at this time. Cardiology consulted for evaluation recommendations. ER physician has already contacted Dr[facility] who [facility] Medical History: Reports:: Coronary Artery Disease, Diabetes Mellitus Type 2, Hyperlipidemia, Hypertension Denies:: Cancer, Diabetes Mellitus Type 1, Internal Pacemaker, MRSA Laterality Cases: Right: Arthroscopy Shoulder, Bilateral: Other Other Surgeries: Yes: Coronary Stent, Other. No: Pacemaker Amputation: No Fractures: No - *Social History Educational Level: Completed High School Smoking Status: Current every day smoker Tobacco Type: cigarettes # Packs/Day (cigarettes): 1 Alcohol Intake: never Alcohol Intake Frequency:: holidays/special occasions only Occupational Status: employed Household Members: significant other - Psychiatric History Expresses thoughts of harming self/others: None Suicide Plan Description: No Plan *Family Hx:: Unable to obtain Meds Home Medications Medication Instructions Recorded Confirmed Type empagliflozin 25 mg tablet 25 mg PO DAILY tab 08/18/17 12/07/17 History metformin ER 500 mg 24 hr 1,000 mg PO DAILY tab 08/18/17 12/07/17 History tablet,extended release Acetaminophen [Acetaminophen 325mg 650 mg PO Q4HP PRN 12/07/17 12/07/17 History tab] Aspirin [Aspirin 81mg EC Tab] 81 mg PO DAILY 12/07/17 12/07/17 History Atorvastatin Calcium [Lipitor 40mg 40 mg PO HS 12/07/17 12/07/17 History Tablet] Bisoprolol Fumarate 10 mg PO DAILY 12/07/17 12/07/17 History Lisinopril [Zestril 5mg 5 mg PO DAILY 12/07/17 12/07/17 History Tablet] Ticagrelor [Brilinta 90mg Tablet] 90 mg PO BID 12/07/17 12/07/17 History Allergies Allergy/AdvReac Type Severity Reaction Status Date / Time No Known Allergies Allergy Verified 07/14/17 07:54 Review of Systems - *Cardiovascular Reports chest pain, Reports shortness of breath with activity - *Respiratory Reports shortness of breath with activity - *Gastrointestinal Denies abdominal pain - *Genitourinary Denies difficulty urinating - *Neurologic Denies abnormal speech, Denies seizure-like activity Exam Vital signs and Labs for Last 24 Hours: Temp Pulse Resp BP Pulse Ox 97.6 F 97 H 20 184/103 62 L 12/07/17 09:09 12/07/17 09:09 12/07/17 09:09 12/07/17 09:09 12/07/17 08:30 Laboratory Results - last 24 hr 12/07/17 07:40: WBC 9.9, RBC 6.14, Hgb 18.0, Hct 57.6 H, MCV 93.8, MCH 29.3, MCHC 31.2 L, RDW 13.6, Plt Count 201, MPV 8.2, Neut % (Auto) 58.2, Lymph % (Auto ) 32.8, [place] % (Auto) 5.7, Eos % (Auto) 2.4, Baso % (Auto) 0.8, Neut # (Auto) 5.8, Lymph # (Auto) 3.3, [place] # (Auto) 0.6, Eos # (Auto) 0.2, Baso # (Auto) 0.1 12/07/17 07:40: Troponin I < 0.02 12/07/17 07:40: Sodium 138, Potassium 4.6, Chloride 100, Carbon Dioxide 29, Anion Gap 13.6, BUN 17, Creatinine 0.99, Estimated Creat Clear 181, Estimated GFR 81, Est GFR ( Amer) 98, Glucose 256 H, Calcium 9.2 12/07/17 07:40: PT 9.7, INR 0.94, APTT 28.3 12/07/17 07:40: B-Natriuretic Peptide < 5 I & O for Last 24 hours: Intake & Output 12/05/17 12/06/17 12/07/17 12/08/17 11:59 11:59 11:59 11:59 Weight 315 lb 6 oz - *Routine Neck Exam Absent: JVD, carotid bruit - *Routine Respiratory Exam Present: CTA bilaterally - *Routine Cardiovascular Exam Present: RRR. Absent: murmur, gallop, rubs - *Routine Abdominal Exam Present: soft. Absent: tenderness - *Routine Extremities Exam Absent: edema - *Routine Neurological Exam Present: alert, oriented X3, moving all extremities Assessment and Plan (1) Unstable angina Current visit: Yes Status: Acute Category: Medical Code(s): I20.0 - Unstable angina (2) Diabetes Current visit: Yes Status: Acute Category: Medical Code(s): E11.9 - Type 2 diabetes mellitus without complications (3) Tobacco use disorder Current visit: Yes Status: Acute Category: Medical Code(s): F17.200 - Nicotine dependence, unspecified, uncomplicated (4) CAD (coronary artery disease) Current visit: Yes Status: Chronic Qualifiers: Category: Medical Code(s): I25.10 - Atherosclerotic heart disease of [place] coronary artery without angina pectoris (5) Obesity Current visit: No Status: Chronic Qualifiers: Obesity type: unspecified obesity type Obesity classification: unspecified obesity classification Serious obesity comorbidity presence: unspecified whether serious comorbidity present Qualified Code(s): E66.9 - Obesity, unspecified Category: Medical Code(s): E66.9 - Obesity, unspecified - Assessment and plan all Dx Assessment and Plan for all problems:: 1. Continue home medications including aspirin and Brilinta. 2. Continue nitroglycerin paste. 3. Will obtain an echocardiogram to evaluate left ventricular ejection fraction. 4. Plan for cardiac catheterization in a.m. or sooner if patient's angina is recurs.
--- NOTE | 2017-12-07 17:16 | History & Physical Report ---
*Admission Date: 12/07/17 *Chief complaint: Chest pain *History of present illness: 46-year-old male with diabetes and known history of coronary artery disease presented to the emergency department with his significant other this morning with centralized nonradiating aching chest pain. Patient has history of coronary artery disease and has had prior stenting by Dr. Marie. He admits that for the last 2 weeks he has been experiencing episodes of chest pain that occur at rest and with activity with associated shortness of breath. Shortness of breath seems to be worsening more than the chest pain. He unfortunately continues to smoke. In the emergency department his first set of cardiac enzymes was negative. ER physician contacted Dr. Marie who recommended admission for rule out of ME and cardiac catheterization tomorrow. Patient has since ruled out for ME [facility] History I have reviewed the patient's past medical history: Yes Medical History: Reports:: Coronary Artery Disease, Diabetes Mellitus Type 2, Hyperlipidemia, Hypertension Denies:: Cancer, Diabetes Mellitus Type 1, Internal Pacemaker, MRSA Laterality Cases: Right: Arthroscopy Shoulder, Bilateral: Other Other Surgeries: Yes: Coronary Stent, Other. No: Pacemaker Amputation: No Fractures: No - *Social History Educational Level: Completed High School Smoking Status: Current every day smoker Tobacco Type: cigarettes # Packs/Day (cigarettes): 1 Alcohol Intake: never Alcohol Intake Frequency:: holidays/special occasions only Occupational Status: employed Household Members: significant other - Psychiatric History Expresses thoughts of harming self/others: None Suicide Plan Description: No Plan *Family Hx:: Unable to obtain Review of Systems - Review of Systems Review of systems:: pertinent systems reviewed and negative unless documented below - Constitutional Denies chills, Denies fever(s) - *Respiratory Reports cough, Reports shortness of breath, Denies change in phlegm color - *Neurologic Denies abnormal speech, Denies seizure-like activity Meds Home Medications Medication Instructions Recorded Confirmed Type empagliflozin 25 mg tablet 25 mg PO DAILY tab 08/18/17 12/07/17 History metformin ER 500 mg 24 hr 1,000 mg PO DAILY tab 08/18/17 12/07/17 History tablet,extended release Acetaminophen [Acetaminophen 325mg 650 mg PO Q4HP PRN 12/07/17 12/07/17 History tab] Aspirin [Aspirin 81mg EC Tab] 81 mg PO DAILY 12/07/17 12/07/17 History Atorvastatin Calcium [Lipitor 40mg 40 mg PO HS 12/07/17 12/07/17 History Tablet] Bisoprolol Fumarate 10 mg PO DAILY 12/07/17 12/07/17 History Lisinopril [Zestril 5mg 5 mg PO DAILY 12/07/17 12/07/17 History Tablet] Ticagrelor [Brilinta 90mg Tablet] 90 mg PO BID 12/07/17 12/07/17 History Allergies Allergy/AdvReac Type Severity Reaction Status Date / Time No Known Allergies Allergy Verified 07/14/17 07:54 Exam Vital signs and Labs for Last 24 Hours: Temp Pulse Resp BP Pulse Ox 97.6 F 70 20 184/103 94 L 12/07/17 09:09 12/07/17 16:00 12/07/17 09:09 12/07/17 09:09 12/07/17 13:06 Laboratory Results - last 24 hr 12/07/17 07:40: WBC 9.9, RBC 6.14, Hgb 18.0, Hct 57.6 H, MCV 93.8, MCH 29.3, MCHC 31.2 L, RDW 13.6, Plt Count 201, MPV 8.2, Neut % (Auto) 58.2, Lymph % (Auto ) 32.8, [place] % (Auto) 5.7, Eos % (Auto) 2.4, Baso % (Auto) 0.8, Neut # (Auto) 5.8, Lymph # (Auto) 3.3, [place] # (Auto) 0.6, Eos # (Auto) 0.2, Baso # (Auto) 0.1 12/07/17 07:40: Troponin I < 0.02 12/07/17 07:40: Sodium 138, Potassium 4.6, Chloride 100, Carbon Dioxide 29, Anion Gap 13.6, BUN 17, Creatinine 0.99, Estimated Creat Clear 181, Estimated GFR 81, Est GFR ( Amer) 98, Glucose 256 H, Calcium 9.2 12/07/17 07:40: PT 9.7, INR 0.94, APTT 28.3 12/07/17 07:40: B-Natriuretic Peptide < 5 12/07/17 13:45: Troponin I < 0.02 I & O for Last 24 hours: Intake & Output 12/05/17 12/06/17 12/07/17 12/08/17 11:59 11:59 11:59 11:59 Intake Total 120 / 120 Balance 120 / 120 Weight 315 lb 6 oz Narrative: He is in no distress. HEENT exam is grossly normal. Neck is without lymphadenopathy. Lungs are distant but clear. Heart has a regular rate and rhythm. Abdomen is obese. H&P: Result - Labs Labs: Short CBC 12/07/17 Range/Units 07:40 WBC 9.9 (4.8-10.8) K/mm3 Hgb 18.0 (14.1-18.0) g/dL Hct 57.6 H (42.0-52.0) % Plt Count 201 (142-424) K/mm3 BMP 12/07/17 07:40 Sodium 138 Potassium 4.6 Chloride 100 Carbon Dioxide 29 BUN 17 Creatinine 0.99 Glucose 256 H Calcium 9.2 Cardiac Enzymes 12/07/17 12/07/17 Range/Units 07:40 13:45 Troponin I < 0.02 < 0.02 (0.00-0.06) ng/ml Assessment and Plan (1) Unstable angina Current visit: Yes Status: Acute Category: Medical Code(s): I20.0 - Unstable angina (2) Diabetes Current visit: Yes Status: Acute Category: Medical Code(s): E11.9 - Type 2 diabetes mellitus without complications (3) Tobacco use disorder Current visit: Yes Status: Acute Category: Medical Code(s): F17.200 - Nicotine dependence, unspecified, uncomplicated (4) CAD (coronary artery disease) Current visit: Yes Status: Chronic Qualifiers: Category: Medical Code(s): I25.10 - Atherosclerotic heart disease of [place] coronary artery without angina pectoris (5) Obesity Current visit: No Status: Chronic Qualifiers: Obesity type: unspecified obesity type Obesity classification: unspecified obesity classification Serious obesity comorbidity presence: unspecified whether serious comorbidity present Qualified Code(s): E66.9 - Obesity, unspecified Category: Medical Code(s): E66.9 - Obesity, unspecified - Assessment and plan all Dx Assessment and Plan for all problems:: Patient is ruled out for ME. He will need cardiac catheterization in the morning.
--- NOTE | 2017-12-08 07:03 | Progress Note ---
Internal Medicine - PN: Subj *Date: 12/08/17 *Time: 07:00 Interval history: Patient did well overnight. He denies any further chest pain or shortness of breath. He is scheduled for cardiac catheterization this morning Exam Vital signs and Labs for Last 24 Hours: Temp Pulse Resp BP Pulse Ox 97.8 F 78 16 126/73 91 L 12/08/17 04:00 12/08/17 04:00 12/08/17 04:00 12/08/17 04:00 12/08/17 04:00 Laboratory Results - last 24 hr 12/07/17 07:40: WBC 9.9, RBC 6.14, Hgb 18.0, Hct 57.6 H, MCV 93.8, MCH 29.3, MCHC 31.2 L, RDW 13.6, Plt Count 201, MPV 8.2, Neut % (Auto) 58.2, Lymph % (Auto ) 32.8, [place] % (Auto) 5.7, Eos % (Auto) 2.4, Baso % (Auto) 0.8, Neut # (Auto) 5.8, Lymph # (Auto) 3.3, [place] # (Auto) 0.6, Eos # (Auto) 0.2, Baso # (Auto) 0.1 12/07/17 07:40: Troponin I < 0.02 12/07/17 07:40: Sodium 138, Potassium 4.6, Chloride 100, Carbon Dioxide 29, Anion Gap 13.6, BUN 17, Creatinine 0.99, Estimated Creat Clear 181, Estimated GFR 81, Est GFR ( Amer) 98, Glucose 256 H, Calcium 9.2 12/07/17 07:40: PT 9.7, INR 0.94, APTT 28.3 12/07/17 07:40: B-Natriuretic Peptide < 5 12/07/17 13:45: Troponin I < 0.02 12/07/17 19:34: Troponin I < 0.02 I & O for Last 24 hours: Intake & Output 12/05/17 12/06/17 12/07/17 12/08/17 11:59 11:59 11:59 11:59 Intake Total 1379 / 1379 Balance 1379 / 1379 Weight 315 lb 6 oz 316 lb 7 oz Narrative: He appears well. Lungs are distant but clear. Heart has a regular rate and rhythm. Assessment and Plan (1) Unstable angina Current visit: Yes Status: Acute Category: Medical Code(s): I20.0 - Unstable angina (2) Diabetes Current visit: Yes Status: Acute Category: Medical Code(s): E11.9 - Type 2 diabetes mellitus without complications (3) Tobacco use disorder Current visit: Yes Status: Acute Category: Medical Code(s): F17.200 - Nicotine dependence, unspecified, uncomplicated (4) CAD (coronary artery disease) Current visit: Yes Status: Chronic Qualifiers: Category: Medical Code(s): I25.10 - Atherosclerotic heart disease of [place] coronary artery without angina pectoris (5) Obesity Current visit: No Status: Chronic Qualifiers: Obesity type: unspecified obesity type Obesity classification: unspecified obesity classification Serious obesity comorbidity presence: unspecified whether serious comorbidity present Qualified Code(s): E66.9 - Obesity, unspecified Category: Medical Code(s): E66.9 - Obesity, unspecified - Assessment and plan all Dx Assessment and Plan for all problems:: Regardless of the outcome of today's catheterization I did discuss with the patient future PFT testing to assess lung function and damage caused by his heavy cigarette use. I also emphasized the importance of smoking cessation in regards to the patient's future health.
[2017-12-08 07:22] LABS: Basophils # 0.1 K/mm3 (0-0.2); Basophils % 0.8 % (0.1-2.0); Eosinophils # 0.3 K/mm3 (0.0-0.4); Eosinophils % 3.1 % (0.1-12.0); Hematocrit 52.5 % (42.0-52.0); Lymphocytes # 2.8 K/mm3 (0.7-4.5); Lymphocytes % 30.8 K/mm3 (10-50); Mean Corpuscular HGB Conc 32.3 g/dL (31.8-35.4); Mean Corpuscular Hemoglobin 29.8 pg (27.0-31.2); Mean Corpuscular Volume 92.3 fl (80-94); Mean Platelet Volume 8.3 fl (7.4-10.4); Monocytes # 0.6 K/mm3 (0.1-1.0); Monocytes % 6.3 % (1.7-9.3); Neutrophils # 5.3 K/mm3 (1.8-7.8); Platelet Count 200 K/mm3 (142-424); Red Blood Count 5.69 M/mm3 (4.60-6.20); Red Cell Distribution Width 13.6 % (11.5-17.5)
[2017-12-08 07:28] LABS: Anion Gap 13.2 mEq/L (5-15); Potassium 4.2 mmoL/L (3.5-5.1)
--- NOTE | 2017-12-08 10:30 | Cardiology Report ---
PROCEDURE: 2-D M-mode and color Doppler study INDICATIONS FOR THE TEST: Chest pain+ COPD Heart Murmur Tobacco Smoking+ Palpitations Fatigue Syncope Edema+ Hypertension+Diabetes Mellitus+ Rheumatic Fever SOB+JAEGER Obesity+Hyperlipidemia+ Family History HD Additional History CAD, stents Definity contrast utilized PATIENT INFORMATION HEIGHT: 77 WEIGHT: 315 GENDER: Male B/P: 184/103 2-D/M-MODE INTERPRETATION: 2-D MEASUREMENTS OBSERVED VALUES IN CMS Right Ventricular Dimension (RVDd) Interventricular Septum (Thickness)(IVsd) 1.2 Left Ventricular Internal Dimensions(LVIDd) 5.1 Left Ventricular Posterior Wall (Thickness)(LVPWd) 1.1 Aortic Root 3.7 Aortic Cusp Separation 2.7 Left Atrial Dimensions (LAD) 3.0 2D 1. Left atrium is normal size, left ventricle is normal size, mild concentric left ventricular hypertrophy, visually estimated ejection fraction of 55% with no obvious regional wall motion abnormality. Definity contrast was utilized to delineate endocardial surfaces. 2. The right atrium and right ventricle are normal size and contractility. 3. The aortic valve is minimally thickened and fibrosed. 4. The mitral and tricuspid valve are structurally normal. 5. The pulmonic valve is poorly. 6. No significant pericardial effusion noted. DOPPLER INTERROGATION: Doppler interrogation of the aortic, mitral and tricuspid valve reveals presence of mild mitral and tricuspid regurgitation, tricuspid regurgitant jet velocity is insufficient for calculation of the right ventricular systolic pressure, grade 1 diastolic dysfunction seen without tissue Doppler evidence of raised left atrial pressure. CONCLUSION: 1. Normal left ventricular size, mild concentric left ventricular hypertrophy, visually estimated ejection fraction 55% with no obvious regional wall motion abnormality, Definity contrast was utilized to delineate endocardial surfaces. Grade 1 diastolic dysfunction seen without tissue Doppler evidence of raised left atrial pressure. 2. Mild mitral and tricuspid regurgitation 3. No significant pericardial effusion noted.
--- NOTE | 2017-12-08 14:54 | Progress Note ---
Subjective Date: 12/08/17 Time: 14:52 Principal diagnosis: Angina Interval history: 46 yo WM with coronary artery disease status post cardiac catheterization today revealing mild coronary artery disease of the circumflex LAD and RCA systems with moderate disease of the diagonal artery. Recommendation is for medical therapy. Elevated left ventricular end-diastolic pressure at 25 mmHg with recommendation for diuretic therapy. Results discussed with patient and questions answered. Exam Vital signs and Labs for Last 24 Hours: Temp Pulse Resp BP Pulse Ox 97.8 F 87 16 182/94 93 L 12/08/17 08:00 12/08/17 08:00 12/08/17 08:00 12/08/17 08:00 12/08/17 08:00 Laboratory Results - last 24 hr 12/07/17 19:34: Troponin I < 0.02 12/08/17 07:11: WBC 9.0, RBC 5.69, Hgb 17.0, Hct 52.5 H, MCV 92.3, MCH 29.8, MCHC 32.3, RDW 13.6, Plt Count 200, MPV 8.3, Neut % (Auto) 59.0, Lymph % (Auto) 30.8, [place] % (Auto) 6.3, Eos % (Auto) 3.1, Baso % (Auto) 0.8, Neut # (Auto) 5.3 , Lymph # (Auto) 2.8, [place] # (Auto) 0.6, Eos # (Auto) 0.3, Baso # (Auto) 0.1 12/08/17 07:11: Sodium 137, Potassium 4.2, Chloride 103, Carbon Dioxide 25, Anion Gap 13.2, BUN 15, Creatinine 0.80, Estimated Creat Clear 229, Estimated GFR 103, Est GFR ( Amer) 125 D, Glucose 240 H, Calcium 9.0 I & O for Last 24 hours: Intake & Output 12/06/17 12/07/17 12/08/17 12/09/17 11:59 11:59 11:59 11:59 Intake Total 1379 / 1379 Balance 1379 / 1379 Weight 315 lb 6 oz 316 lb 7 oz 316 lb 7.013 oz Progress Note: A&P (1) Unstable angina Status: Acute Current Visit: Yes (2) Diabetes Status: Acute Current Visit: Yes (3) Tobacco use disorder Status: Acute Current Visit: Yes (4) CAD (coronary artery disease) Status: Chronic Current Visit: Yes (5) Obesity Status: Chronic Current Visit: No Assessment and Plan for All Diagnoses:: Okay from cardiology standpoint for discharge home. Continue home medications. Add isosorbide mononitrate 30 mg daily, Lasix 20 mg daily and nitroglycerin tablets 0.4 mg sublingual as needed chest pain. Follow-up in 1 week or sooner if needed.
--- NOTE | 2017-12-08 15:21 | Discharge Summary ---
General - General Admission date:: 12/07/17 Discharge date: 12/08/17 HPI HPI: 46-year-old male with diabetes and known history of coronary artery disease presented to the emergency department with his significant other this morning with centralized nonradiating aching chest pain. Patient has history of coronary artery disease and has had prior stenting by Dr. Marie. He admits that for the last 2 weeks he has been experiencing episodes of chest pain that occur at rest and with activity with associated shortness of breath. Shortness of breath seems to be worsening more than the chest pain. He unfortunately continues to smoke. In the emergency department his first set of cardiac enzymes was negative. ER physician contacted Dr. Marie who recommended admission for rule out of CT and cardiac catheterization tomorrow. Patient has since ruled out for CT Hospital Course Hospital Course: Patient was admitted and ruled out for CT. Following morning he underwent left heart catheterization by Dr. Marie. LHC did not reveal any new significant obstructive disease. Medical management was recommended. Isosorbide mononitrate was added to the patient's regimen. Patient was discharged home later in the day on December 08. He will follow-up in Dr. Marie's office within 1 week in follow-up in my office in 1 week Objective Vital signs: Temp Pulse Resp BP Pulse Ox 97.8 F 87 16 182/94 93 L 12/08/17 08:00 12/08/17 08:00 12/08/17 08:00 12/08/17 08:00 12/08/17 08:00 Results Labs on day of discharge: Labs from last 24 hours 12/08/17 12/08/17 12/07/17 07:11 07:11 19:34 WBC 9.0 RBC 5.69 Hgb 17.0 Hct 52.5 H MCV 92.3 MCH 29.8 MCHC 32.3 RDW 13.6 Plt Count 200 MPV 8.3 Neut % (Auto) 59.0 Lymph % (Auto) 30.8 [place] % (Auto) 6.3 Eos % (Auto) 3.1 Baso % (Auto) 0.8 Neut # (Auto) 5.3 Lymph # (Auto) 2.8 [place] # (Auto) 0.6 Eos # (Auto) 0.3 Baso # (Auto) 0.1 Sodium 137 Potassium 4.2 Chloride 103 Carbon Dioxide 25 Anion Gap 13.2 BUN 15 Creatinine 0.80 Estimated Creat Clear 229 Estimated GFR 103 Est GFR ( Amer) 125 D Glucose 240 H Calcium 9.0 Troponin I < 0.02 DS: Diagnosis - Discharge Diagnosis (1) Unstable angina Status: Acute (2) Diabetes Status: Acute (3) Tobacco use disorder Status: Acute (4) CAD (coronary artery disease) Status: Chronic (5) Obesity Status: Chronic Discharge Plan - Patient Discharge Instructions ACTIVITY: Continue current activity DIET: continue same diet Patient Instructions: Type 2 Diabetes - Follow up Plan Follow up with: Humberto Marie MD [Staff Physician] - 1 week Pierce Borges MD [Primary Care Provider] - 12/15/17 3:00 pm Disposition: Home, Self-Nursing Home Medications: Home Medications Medication Instructions Recorded Confirmed Type empagliflozin 25 mg tablet 25 mg PO DAILY tab 08/18/17 12/07/17 History metformin ER 500 mg 24 hr 1,000 mg PO DAILY tab 08/18/17 12/07/17 History tablet,extended release Acetaminophen [Acetaminophen 325mg 650 mg PO Q4HP PRN 12/07/17 12/07/17 History tab] Aspirin [Aspirin 81mg EC Tab] 81 mg PO DAILY 12/07/17 12/07/17 History Atorvastatin Calcium [Lipitor 40mg 40 mg PO HS 12/07/17 12/07/17 History Tablet] Bisoprolol Fumarate 10 mg PO DAILY 12/07/17 12/07/17 History Lisinopril [Zestril 5mg 5 mg PO DAILY 12/07/17 12/07/17 History Tablet] Ticagrelor [Brilinta 90mg Tablet] 90 mg PO BID 12/07/17 12/07/17 History Prescriptions/Medication Reconciliation: Continue isosorbide mononitrate ER 30 mg tablet,extended release 24 hr 30 mg PO QAM # 90 tab nitroglycerin 0.4 mg sublingual tablet 0.4 mg SUBLINGUAL Q5-15M PRN #30 tab PRN Reason: chest pain metformin ER 500 mg 24 hr tablet,extended release 1,000 mg PO DAILY tab empagliflozin 25 mg tablet 25 mg PO DAILY tab furosemide 20 mg tablet 20 mg PO QAM #90 tab Lisinopril [Zestril 5mg Tablet] 5 mg PO DAILY Ticagrelor [Brilinta 90mg Tablet] 90 mg PO BID Aspirin [Aspirin 81mg EC Tab] 81 mg PO DAILY Acetaminophen [Acetaminophen 325mg tab] 650 mg PO Q4HP PRN PRN Reason: Mild Pain Bisoprolol Fumarate 10 mg PO DAILY Atorvastatin Calcium [Lipitor 40mg Tablet] 40 mg PO HS
[2017-12-08 17:26] VITALS: BP 130/68
== END 2017-12-08 17:00 | disposition home or self-care (01) ==
LOC: 2ND 07:37 → ER 07:37 → 2ND 09:23
PROVIDERS: ADMIT Family Medicine; ATTEND Family Medicine

== ENCOUNTER → 2020-01-27 13:42 | Outpatient (CLI) | payer OTHER, SELFPAY | PROVIDERS: PCP Family Medicine; Visit Provider Nurse Practitioner | DX: Z03.818 Encounter for observation for suspected exposure to other biological agents ruled out (principal) | CPT/HCPCS: U0003 ==

== ENCOUNTER 2020-05-06 07:30 | Emergency (ER) | payer OTHER, SELFPAY ==
[2020-05-06 07:31] VITALS: BP 179/103; PULSE 114; RESP 16; TEMP 36.8; O2SAT 94; BMI 33.2
--- NOTE | 2020-05-06 07:48 | PC.NURSE ---
rt eye 20/30 with corrections lt eye 20/30 with corrections
--- NOTE | 2020-05-06 08:02 | HMH.EDGENADL ---
ED Disposition Clinical Impression: Eye pain Qualifiers: Laterality: right Qualified Code(s): H57.11 - Ocular pain, right eye Corneal ulcer Qualifiers: Laterality: right Qualified Code(s): H16.001 - Unspecified corneal ulcer, right eye Disposition: Xfer Other Condition on Discharge: Fair Instructions: DI for Eye Pain, DI for Corneal Ulcer Additional Instructions: You have an ophthalmology appointment at 10 AM at [facility]. Please go directly to the office. I am concerned you have a corneal ulcer. Referrals: Pierce Borges MD [Primary Care Provider] - Time of Disposition: 08:21 - Critical Care Critical Care Time: No Attestation: On 05/06/20, the high probability of a clinically significant, sudden or life threatening deterioration of the following system(s) required my full and direct attention, intervention and personal management. The time I documented below is in addition to time spent performing reported procedures but includes the following listed in this critical care notation. Medical Decision Making - Medical Records Medical records reviewed: Yes: I reviewed the patient's medical records. - [place] Inquiry Pt receiving controlled substance: No Vital Signs: 05/06/20 07:31 Temperature 98.3 F Temperature Source Oral Pulse Rate [Radial] 114 H Respiratory Rate 16 Blood Pressure [Right Radial Artery] 179/103 H Blood Pressure Mean [Right Radial Artery] 128 Blood Pressure Position [Right Radial Artery] Sitting 02 Sat by Pulse Oximetry 94 L Oxygen Delivery Method Room Air Medical Decision Narrative: In summary this is a 49-year-old male presenting to the emergency department with right eye pain. Patient awake and alert on arrival, clinically stable. Differential diagnoses include corneal foreign body, abrasion, ulcer, iritis. Pupil is not fixed and dilated. No hazy cornea. Doubt glaucoma the acuity is 20/30 bilaterally with corrective glasses. Physical exam is remarkable for a small white punctate lesion on the surface of the cornea. Consistent with an ulcer or foreign body. Unable to remove with Q-tip or small metal tool. Spoke with [facility], back up worker, Dr. Syed. He graciously agreed to see the patient this morning. Patient will be discharged to go directly to the ophthalmology office General Adult HPI - General Chief complaint: Eye Problems Stated complaint: rt eye pain, no ao Time Seen by Provider: 05/06/20 08:02 Mode of Arrival: Ambulatory Limitations: No Limitations Description of Symptoms (Recalled from ER Triage Doc. by RN): to ed per pvt car with c/o rt eye pain x 2 days. states +photophobia, +tearing pt denies injury. pt states pain getting worse. - History of Present Illness HPI narrative: 49-year-old male presenting to the emergency department with right eye pain. Symptoms started around 36 hours ago. [place] pain in the upper portion in the back of his eye. Sensitivity to light. Tearing frequently. He tried flushing out his eye with water, minimal relief. Throughout the day yesterday continue to have irritation and sharp pain. This morning when he woke up his eye was crusted shut. Wears glasses, no contacts. 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 No recent illness, fevers, chills, nausea, vomiting, congestion. - Related Data Home Medications Medication Instructions Recorded Confirmed empagliflozin 25 mg tablet 25 mg PO DAILY tab 08/18/17 12/07/17 metformin 500 mg 24 hr 1,000 mg PO DAILY tab 08/18/17 12/07/17 tablet,extended release Acetaminophen [Acetaminophen 325mg 650 mg PO Q4HP PRN 12/07/17 12/07/17 tab] Aspirin [Aspirin 81mg EC Tab] 81 mg PO DAILY 12/07/17 12/07/17 Atorvastatin Calcium [Lipitor 40mg 40 mg PO HS 12/07/17 12/07/17 Tablet*] Ticagrelor [Brilinta 90mg 90 mg PO BID 12/07/17 12/07/17 Tablet] bisoproloL fumarate [Bisoprolol 10 mg PO DAILY 12/07/17
--- NOTE | 2020-05-06 08:13 | PC.NURSE ---
Dr Merino spoke with Dr. Syed. Pt has an appointment at 10AM at [facility].
[2020-05-06 08:43] VITALS: BP 145/75; PULSE 111; RESP 20; TEMP 36.6; O2SAT 98
== END 2020-05-06 08:44 | disposition other institution (70) ==
PROVIDERS: Emergency Provider Emergency Medicine; PCP Family Medicine
DX: H57.11 Ocular pain, right eye (principal); H16.001 Unspecified corneal ulcer, right eye; E11.9 Type 2 diabetes mellitus without complications; I10 Essential (primary) hypertension; I25.10 Atherosclerotic heart disease of native coronary artery without angina pectoris; E78.5 Hyperlipidemia, unspecified; F17.210 Nicotine dependence, cigarettes, uncomplicated; Z79.899 Other long term (current) drug therapy
CPT/HCPCS: 99281

== ENCOUNTER 2021-06-11 16:14 | Inpatient (IN) | payer OTHER, SELFPAY ==
[2021-06-11] VITALS (17 sets, daily range): BP systolic 97–138; BP diastolic 56–80; PULSE 59–110; RESP 16–20; TEMP 36.7–36.9; O2SAT 89–96; BMI 32.0
--- NOTE | 2021-06-11 | IR_ITS ---
APPROVED REPORT Patient Location: [facility] Java Developer: MEREDITH Willingham RT (R) PROCEDURES Left heart catheterization Left ventriculogram Selective coronary angiogram Mechanical thrombectomy to the dominant right coronary artery followed by drug-eluting stent deployment to the proximal mid and distal dominant right coronary in a contiguous manner Drug-eluting stent deployment to the proximal mid chronically occluded left anterior descending artery Drug-eluting stent deployment to the mid circumflex artery INDICATION Acute ST elevation myocardial infarction, Cardiogenic shock, Third-degree heart block, Informed consent was obtained prior to the procedure. COMPLICATIONS NONE Estimated Blood Loss: LESS THAN 10 ML TECHNIQUE One percent lidocaine used to anesthetize the right anterior aspect of the wrist. The right radial artery was accessed via the Seldinger technique. A 6 [place] sheath was placed in the right radial artery. 2.5 mg of verapamil, 800 mcg of nitroglycerin, 1mg Lidocaine and 5000 U Heparin were given through the arterial sheath. The [place] catheter was also used to perform left heart catheterization, left ventriculogram and selective coronary angiogram. At the end the diagnostic angiogram the guide catheter was placed in the right coronary artery where a Choice PT extra-support wire was used to push through the acute occlusion. A penumbra mechanical aspiration catheter was then used to restore NIYAH-3 flow. A second pass was made to help debulk the clot. Following this a 4 mm x 30 mm resolute Dax stent was deployed at 20 bre reducing the critical stenosis to 0%. An additional 3.5 x 38 mm resolute Cameron stent was placed distal to the stent yet still overlapping it and deployed at 20 bre reducing the severe stenosis to 0%. NIYAH 0 flow was present at the beginning of the procedure with NIYAH-3 flow at the end the procedure. Following this the catheter was placed in the left main artery and a Choice PT extra-support wire was placed in the circumflex artery to establish guide access into the left main artery. An additional Choice PT wire was then placed into the left anterior descending artery. It was quite apparent this was a chronically occluded vessel. The wire would not go down the [place] vessel and a 2 mm balloon was then used to support the Choice PT extra-support wire which was then prolapsed proximally and then with the balloon and the wire were both used to push through the chronic occlusion. The balloon was then inflated multiple times at 15 bre to restore flow. Following this a 2.75 x 38 mm resolute Dax stent was deployed at 24 bre in the proximal to mid left anterior descending artery reducing the 100% occlusion to 0%. A wire was placed back in the circumflex artery where a 3 mm x 18 mm resolute Cameron stent was placed into the mid circumflex artery and deployed at 24 bre reducing the severe stenosis to 0%. NIYAH III flow was present before and after stenting the circumflex artery. NIYAH 0 flow was present in the LAD prior to the stenting NIYAH-3 flow was present after. At the end of the procedure the apparatus was removed the sheath was removed good hemostasis achieved using TR banding patient was transferred to the postop putting her stable condition. After revascularization the third-degree A-V B block which was initially present resolved into sinus tachycardia ANGIOGRAPHIC RESULTS The left main artery Normal The left anterior descending artery Was occluded immediately after a first diagonal artery but proximal to the first septal emt p making it a proximal occlusion. At the end of the procedure the entire LAD was widely patent with excellent inline
--- NOTE | 2021-06-11 16:17 | PC.NURSE ---
STEMI alert called acct exec of pt, pt arrived per EMS. EMS sent EKG per STEMI phone to ER and to Dr. Marie acct exec. Dr. Marie called stating STEMI Alert, call in lab tech team. fishing tool supervisor notified. Notified triple drum operator to contact lab tech staff intelligence applications per Dr. Ocampo request. EKG performed upon arrival of pt
--- NOTE | 2021-06-11 16:17 | ECG_ITS ---
APPROVED REPORT Exam: Resting ECG HR:59 bpm ECG Measurements Heart Rate 59 AXES QRSd 158 QRS -85 QT 496 T 86 QTc 491 Conclusion Sinus tachycardia with complete heart block and Wide QRS rhythm Left axis deviation Right bundle branch block Abnormal ECG Electronically signed by : Pierce Davis MD 06/12/2021 09:49:59
--- NOTE | 2021-06-11 16:22 | XR_ITS ---
PROCEDURE INFORMATION: Exam: XR Chest Exam date and time: 06/11/2021 4:22 PM Age: 50 years old Clinical indication: Chest wall pain; Additional info: Chest pain, stemi alert TECHNIQUE: Imaging protocol: XR of the chest. Views: 1 view. COMPARISON: CR [id number] XR chest portable 12/07/2017 7:48 AM FINDINGS: Lungs: Unremarkable. No consolidation. Pleural spaces: Unremarkable. No pleural effusion. No pneumothorax. Heart/Mediastinum: Unremarkable. No cardiomegaly. Bones/joints: Unremarkable. IMPRESSION: No acute findings.
--- NOTE | 2021-06-11 16:22 | HMH.EDGENADL ---
ED Disposition Clinical Impression: Left bundle branch block, Complete heart block ST elevation SD (STEMI) Qualifiers: Involved coronary artery: unspecified coronary artery Qualified Code(s): I21.3 - ST elevation (STEMI) myocardial infarction of unspecified site Disposition: Still a Patient Condition on Discharge: Serious - Critical Care Critical Care Time: Yes Attestation: On , the high probability of a clinically significant, sudden or life threatening deterioration of the following system(s) required my full and direct attention, intervention and personal management. The time I documented below is in addition to time spent performing reported procedures but includes the following listed in this critical care notation. Vital system(s) involved:: Circulatory Failure My critical care processes included: Assessment & monitoring of V/S, Initial and Re-exams, Data Review/Interpretation, Coordinating Care, Medication Orders and management, Documentation Medical Decision Making - [place] Inquiry Pt receiving controlled substance: No Vital Signs: 06/11/21 16:20 06/11/21 16:31 Temperature 98.4 F Temperature Source Oral Pulse Rate 59 L Pulse Rate [Apical] 59 L Respiratory Rate 16 16 Blood Pressure 97/56 L Blood Pressure [Right Arm] 104/80 L Blood Pressure Mean [Right Arm] 88 Blood Pressure Source Automatic Cuff Blood Pressure Source [Right Arm] Automatic Cuff Blood Pressure Position Sitting Blood Pressure Position [Right Arm] Supine 02 Sat by Pulse Oximetry 94 L 93 L Oxygen Delivery Method Nasal Cannula Nasal Cannula Oxygen Flow Rate (LPM) 3 3 - Lab Data Lab Results 06/11/21 14:20: WBC 14.2 H, RBC 5.19, Hgb 16.1, Hct 49.7, MCV 95.8 H, MCH 31.0, MCHC 32.4, RDW 13.5, Plt Count 296, MPV 9.1, Neut % (Auto) 52.8, Lymph % (Auto) 37.6, [place] % (Auto) 5.2, Eos % (Auto) 1.8, Baso % (Auto) 2.6 H, Neut # (Auto) 7.5, Lymph # (Auto) 5.4 H, [place] # (Auto) 0.7, Eos # (Auto) 0.3, Baso # (Auto) 0.4 H 06/11/21 14:20: PT 11.0, INR 0.97 06/11/21 14:20: Sodium 137, Potassium 3.6, Chloride 102, Carbon Dioxide 24, Anion Gap 14.6, BUN 11, Creatinine 0.70, Estimated Creat Clear 214, Estimated GFR 118, Est GFR ( Amer) 143, Glucose 313 H, Calcium 8.7, Troponin I 0.76 H 06/11/21 16:37: SARS-CoV-2 (PCR) Not detected, Influenza A Untype (PCR) Not detected, Influenza Type B (PCR) Not detected Result diagrams: 06/11/21 14:20 06/11/21 14:20 Orders (Tests/Meds): ED MEDICATIONS Generic Name Dose Route Start Last Admin Trade Name Freq PRN Reason Stop Dose Admin Aspirin 81 mg 06/12/21 09:00 Aspirin Ec 81mg Tablet PO 07/12/21 08:59 DAILY ABENA Atorvastatin Calcium 40 mg 06/11/21 21:00 Atorvastatin 40mg Tablet PO 07/11/21 20:59 HS ABENA Clonidine HCl 0.1 mg 06/11/21 17:41 Clonidine 0.1mg Tablet PO 07/11/21 17:40 TIDP PRN Blood Pressure - High Diphenhydramine HCl 50 mg 06/11/21 16:38 06/11/21 16:51 Diphenhydramine 50mg/Ml Vial IV 06/11/21 16:39 50 mg ONCE ONE Administration Fentanyl Citrate 25 mcg 06/11/21 16:24 Fentanyl 100mcg/2ml Vial IV 06/12/21 16:24 Q3MINP PRN Moderate to Severe Pain Fentanyl Citrate 50 mcg 06/11/21 16:24 06/11/21 17:09 Fentanyl 100mcg/2ml Vial IV 06/12/21 16:24 50 mcg Q3MINP PRN Administration Moderate to Severe Pain Fentanyl Citrate 25 mcg 06/11/21 16:24 Fentanyl 250mcg/5ml Vial IV 06/12/21 16:24 Q3MINP PRN Moderate to Severe Pain Fentanyl Citrate 50 mcg 06/11/21 16:24 Fentanyl 250mcg/5ml Vial IV 06/12/21 16:24 Q3MINP PRN Moderate to Severe Pain Flumazenil 0.2 mg 06/11/21 16:24 Flumazenil 0.1mg/Ml 5ml Vial IV 06/11/21 23:00 NEEDED PRN Sedation Heparin Sodium (Porcine) 10,000 unit 06/11/21 16:24 Heparin 1,000 Units/Ml 10ml Vial (Archery Equipment Hay Sorter) IV 06/11/21 20:24 NEEDED PRN Emergency Box Cylinder Checker Heparin Sodium/Sodium Chloride 3,000 unit 06/11/21 16:24
[2021-06-11 16:31] LABS: Basophils # 0.4 K/mm3 (0-0.2); Basophils % 2.6 % (0.1-2.0); Eosinophils # 0.3 K/mm3 (0.0-0.4); Eosinophils % 1.8 % (0.1-12.0); Hematocrit 49.7 % (42.0-52.0); Hemoglobin 16.1 g/dL (14.1-18.0); Lymphocytes # 5.4 K/mm3 (0.7-4.5); Lymphocytes % 37.6 % (10-50); Mean Corpuscular HGB Conc 32.4 g/dL (31.8-35.4); Mean Corpuscular Volume 95.8 fl (80-94); Mean Platelet Volume 9.1 fl (7.4-10.4); Monocytes # 0.7 K/mm3 (0.1-1.0); Monocytes % 5.2 % (1.7-9.3); Neutrophils # 7.5 K/mm3 (1.8-7.8); Neutrophils % 52.8 % (37.0-80.0); Platelet Count 296 K/mm3 (142-424); Red Blood Count 5.19 M/mm3 (4.60-6.20); Red Cell Distribution Width 13.5 % (11.5-17.5); White Blood Count 14.2 K/mm3 (4.8-10.8)
[2021-06-11 16:34] LABS: Chloride 102 mmol/L (98-107); Potassium 3.6 mmoL/L (3.5-5.1); Sodium 137 mmol/L (136-145)
[2021-06-11 16:37] LABS: Anion Gap 14.6 mEq/L (5-15); Blood Urea Nitrogen 11 mg/dl (9-20); Calcium 8.7 mg/dl (8.4-10.2); Carbon Dioxide 24 mmol/L (22.0-30.0); Creatinine Clearance Estimated 214 mL/min (50-200); Estimated Glomerular Filt Rate 118 ml/min (>60); GFR (African American) 143 ML/MIN (>60); Glucose 313 mg/dl (74-100)
[2021-06-11 16:39] LABS: INR 0.97 (0.9-1.1)
[2021-06-11 16:43] LABS: Coronavirus 19, PCR Not Detected (NotDetected); Influenza A, PCR Not Detected (NotDetected); Influenza B, PCR Not Detected (NotDetected)
[2021-06-11 16:53] LABS: Troponin I 0.76 ng/ml (0.00-0.034)
[2021-06-11 19:42] LABS: CATHL Activated Clotting Time 225 SEC (74-125)
[2021-06-11 19:43] LABS: CATHL Activated Clotting Time > 400 SEC (74-125)
[2021-06-11 20:49] LABS: POC Glucose,Bedside 317 (70-110)
--- NOTE | 2021-06-11 20:56 | PC.NURSE ---
WHILE STARTING MED REC, PT STATES THAT HE HAS BEEN OFF ALL OF HIS MEDICATIONS FOR SOME TIME NOW D/T LOSS OF INSURANCE.
[2021-06-12] VITALS (9 sets, daily range): BP systolic 118–153; BP diastolic 71–96; PULSE 97–120; RESP 16–18; TEMP 36.6–37.2; O2SAT 94–100
--- NOTE | 2021-06-12 03:12 | PC.NURSE ---
A&OX4. PT IS VERY PLEASANT AND SEEMS TO FEEL MUCH BETTER. TOLERATING RA WELL. PT IS INDEPENDENT IN ROOM. HAS SLEPT MAJORITY OF SHIFT. SHEATH HAS BEEN DEFLATED AND REMOVED THIS SHIFT. PRESSURE DRESSING IN PLACE, NO DRAINAGE NOTED THUS FAR. PT HAS REMAINED SINUS TACH ON TELE. VSS WILL CONTINUE TO MONITOR.
[2021-06-12 05:46] LABS: POC Glucose,Bedside 294 (70-110)
--- NOTE | 2021-06-12 08:13 | HMH.HP ---
*Admission Date: 06/11/21 *Chief complaint: Chest pain *History of present illness: 50-year-old male with history of coronary artery disease presented to the emergency department after acute onset of precordial chest pain and pressure at approximately 3:30 PM. In the emergency department he was rapidly assessed and diagnosed with a STEMI. Dr. Marie was contacted and patient was taken to the [facility] where he underwent left heart catheterization with thrombectomy and stenting. Please see Dr. Marie's note for full details. [facility] History I have reviewed the patient's past medical history: Yes Medical History: Reports:: Coronary Artery Disease, Diabetes Mellitus Type 2, Hyperlipidemia, Hypertension, Myocardial Infarction Denies:: Cancer, Diabetes Mellitus Type 1, Internal Pacemaker, MRSA *Have you ever received a pneumonia vaccine?: No *Have you received a flu vaccine this season?: No Laterality Cases: Right: Arthroscopy Shoulder, Bilateral: Other Other Surgeries: Yes: Coronary Stent, Other. No: Pacemaker Amputation: No Fractures: No - *Social History Smoking Status: Current every day smoker Tobacco Type: cigarettes # Packs/Day (cigarettes): 2 Alcohol Intake: never Alcohol Intake Frequency:: holidays/special occasions only *Occupational Status:: employed Household Members: significant other *Travel in the last 8 weeks: None Family Hx:: No significant family history Review of Systems - Review of Systems Review of systems:: pertinent systems reviewed and negative unless documented below Meds Home Medications Medication Instructions Recorded Confirmed Type empagliflozin 25 mg tablet 25 mg PO DAILY tab 08/18/17 12/07/17 History metformin 500 mg 24 hr 1,000 mg PO DAILY tab 08/18/17 12/07/17 History tablet,extended release Acetaminophen [Acetaminophen 325mg 650 mg PO Q4HP PRN 12/07/17 12/07/17 History tab] Aspirin [Aspirin 81mg EC Tab] 81 mg PO DAILY 12/07/17 12/07/17 History Atorvastatin Calcium [Lipitor 40mg 40 mg PO HS 12/07/17 12/07/17 History Tablet*] Ticagrelor [Brilinta 90mg 90 mg PO BID 12/07/17 12/07/17 History Tablet] bisoproloL fumarate [Bisoprolol 10 mg PO DAILY 12/07/17 12/07/17 History 10mg Tablet] lisinopriL [Zestril 5mg 5 mg PO DAILY 12/07/17 12/07/17 History Tablet] furosemide 20 mg tablet 20 mg PO QAM #90 tab 12/08/17 Rx isosorbide mononitrate 30 mg 30 mg PO QAM #90 tab 12/08/17 Rx tablet,extended release 24 hr nitroglycerin 0.4 mg sublingual 0.4 mg SUBLINGUAL Q5-15M PRN #30 12/08/17 Rx tablet tab Allergies Allergy/AdvReac Type Severity Reaction Status Date / Time No Known Allergies Allergy Verified 07/14/17 07:54 Exam Vital signs and Labs for Last 24 Hours: Temp Pulse Resp BP Pulse Ox 98.0 F 110 H 18 153/92 H 97 06/11/21 18:16 06/12/21 04:00 06/12/21 01:10 06/12/21 01:10 06/12/21 01:10 Laboratory Results - last 24 hr 06/11/21 14:20: WBC 14.2 H, RBC 5.19, Hgb 16.1, Hct 49.7, MCV 95.8 H, MCH 31.0, MCHC 32.4, RDW 13.5, Plt Count 296, MPV 9.1, Neut % (Auto) 52.8, Lymph % (Auto) 37.6, Hartley % (Auto) 5.2, Eos % (Auto) 1.8, Baso % (Auto) 2.6 H, Neut # (Auto) 7.5, Lymph # (Auto) 5.4 H, Hartley # (Auto) 0.7, Eos # (Auto) 0.3, Baso # (Auto) 0.4 H 06/11/21 14:20: PT 11.0, INR 0.97 06/11/21 14:20: Sodium 137, Potassium 3.6, Chloride 102, Carbon Dioxide 24, Anion Gap 14.6, BUN 11, Creatinine 0.70, Estimated Creat Clear 214, Estimated GFR 118, Est GFR ( Amer) 143, Glucose 313 H, Calcium 8.7, Troponin I 0.76 H 06/11/21 16:37: SARS-CoV-2 (PCR) Not detected, Influenza A Untype (PCR) Not detected, Influenza Type B (PCR) Not detected 06/11/21 17:53: Activated Clotting Time > 400 H* 06/11/21 18:39: Activated Clotting Time 225 H* D 06/11/21 19:20: Troponin I 20.70 H 06/11/21 20:27: POC Glucose 317 H* 06/11/21 22:11: Troponin I 28.60 H 06/12/21 05:03: POC Glucose 294 H I & O for Last 24 hours: Intake & Output 06/09/21 06/10/21 06/11/21
--- NOTE | 2021-06-12 09:23 | P.CONPHA_ITS ---
[facility] Pharmacy VTE Monitoring - Patient Demographics Admission date: 06/11/21 Report Date: 06/12/21 Time: 09:23 Allergies/Adverse Reactions: Patient Allergies No Known Allergies Allergy (Verified 07/14/17 07:54) Height: 1.96 m Weight: 122.47 kg Patient Problems: Current Active Problems Tobacco use disorder (Acute) ST elevation [place] (STEMI) (Acute) Left bundle branch block (Acute) Complete heart block (Acute) Type 2 diabetes mellitus with hyperglycemia (Acute) HLD (hyperlipidemia) (Chronic) Obesity (Chronic) - VTE Risk Labs: VTE Related Lab Results Hgb 16.1 g/dL (14.1-18.0) 06/11/21 14:20 Hct 49.7 % (42.0-52.0) 06/11/21 14:20 Plt Count 296 K/mm3 (142-424) 06/11/21 14:20 PT 11.0 seconds (10.1-12.5) 06/11/21 14:20 INR 0.97 (0.9-1.1) 06/11/21 14:20 BUN 11 mg/dl (9-20) 06/11/21 14:20 Creatinine 0.70 mg/dl (0.66-1.25) 06/11/21 14:20 Estimated Creat Clear 214 mL/min (50-200) 06/11/21 14:20 - Prophylaxis VTE Prophylaxis Ordered?: Yes Types of VTE Prophylaxis: TEDS Knee High Location of Applied Device: Bilateral Lower Extremeties
--- NOTE | 2021-06-12 09:46 | HMH.PHAINT ---
MEDICATION RECONCILIATION COMPLETED ON PATIENT. PATIENT AND PATIENT'S FAMILY STATES THAT HE HAS NOT TAKEN ANY MEDICATIONS IN MONTHS.
[2021-06-12 20:22] LABS: POC Glucose,Bedside 371 (70-110)
[2021-06-12 20:22] LABS: POC Glucose,Bedside 382 (70-110)
[2021-06-12 20:22] LABS: POC Glucose,Bedside 319 (70-110)
--- NOTE | 2021-06-12 20:36 | PC.NURSE ---
No acute changes this shift. VSS. CB in reach.
[2021-06-13] VITALS (7 sets, daily range): BP systolic 120–165; BP diastolic 70–98; PULSE 98–115; RESP 16–18; TEMP 36.4–37.2; O2SAT 95–100; BMI 33.5
--- NOTE | 2021-06-13 01:43 | PC.NURSE ---
tomato soup, apple sauce
[2021-06-13 06:04] LABS: POC Glucose,Bedside 195 (70-110)
--- NOTE | 2021-06-13 08:16 | HMH.ACPN2 ---
Internal Medicine - PN: Subj *Date: 06/13/21 *Time: 08:16 Interval history: No complaints this morning. No acute events over the last 24 hours. Patient remains in sinus rhythm Exam Vital signs and Labs for Last 24 Hours: Temp Pulse Resp BP Pulse Ox 98.9 F 102 H 18 141/88 H 95 06/13/21 04:00 06/13/21 04:00 06/13/21 04:00 06/13/21 04:00 06/13/21 04:00 Laboratory Results - last 24 hr 06/12/21 11:27: POC Glucose 371 H* 06/12/21 17:19: POC Glucose 319 H* 06/12/21 20:06: POC Glucose 382 H* 06/13/21 05:57: POC Glucose 195 H I & O for Last 24 hours: Intake & Output 06/10/21 06/11/21 06/12/21 06/13/21 11:59 11:59 11:59 11:59 Intake Total 120 / 120 720 / 720 Balance 120 / 120 720 / 720 Weight 270 lb 284 lb - Constitutional no acute distress - *Routine Respiratory Exam Present: CTA bilaterally - *Routine Cardiovascular Exam Present: RRR Assessment and Plan (1) ST elevation [place] (STEMI) Status: Acute Qualifiers: Involved coronary artery: unspecified coronary artery Qualified Code(s): I21.3 - ST elevation (STEMI) myocardial infarction of unspecified site Category: Medical Code(s): I21.3 - ST elevation (STEMI) myocardial infarction of unspecified site (2) Type 2 diabetes mellitus with hyperglycemia Status: Acute Category: Medical Code(s): E11.65 - Type 2 diabetes mellitus with hyperglycemia (3) Left bundle branch block Status: Acute Category: Medical Code(s): I44.7 - Left bundle-branch block, unspecified (4) Tobacco use disorder Status: Acute Category: Medical Code(s): F17.200 - Nicotine dependence, unspecified, uncomplicated (5) HLD (hyperlipidemia) Status: Chronic Qualifiers: Category: Medical Code(s): E78.5 - Hyperlipidemia, unspecified (6) Obesity Status: Chronic Qualifiers: Category: Medical Code(s): E66.9 - Obesity, unspecified - Assessment and plan all Dx Assessment and Plan for all problems:: 1. Increase carvedilol to 6.25 twice daily 2. Start Metformin therapy
[2021-06-13 12:05] LABS: POC Glucose,Bedside 253 (70-110)
[2021-06-13 15:19] LABS: POC Glucose,Bedside 297 (70-110)
[2021-06-13 21:52] LABS: POC Glucose,Bedside 315 (70-110)
[2021-06-14] VITALS: BP 130/61; PULSE 110; PULSE 72; RESP 16; TEMP 36.8; O2SAT 94
--- NOTE | 2021-06-14 00:01 | CA_ITS ---
APPROVED REPORT EXAM: Comprehensive 2D, Doppler, and color-flow Echocardiogram Apprentice Jockey: Kaity Teague CRT Ht: 6 ft 5 in Wt: 270lbs BSA: 2.54 BP: 153/92 mmHg Indications: Stemi, Diabetes, Obesity, CAD, Hyperlipidemia, Hypertension/HDD, smoker, LBBB, 30% on cath, 8 stents Echo Enhancing Agent Indication: Endocardial border delineation Agent(s) / Amount(s) Used: Definity 2 cc 2D Dimensions LVOT 2.66 cm (M/F) 1.5-2.5 LA Volume 31.00 mL LA Volume Index 12.20 mL/m2 (M/F) 16-34 M-Mode Dimensions RVDd 2.26 cm (0.9-2.6) LA Diam 3.20 cm (1.9-4.0) LVDd 5.68 cm (3.5-5.7) Ao Diam 4.88 cm (2.0-3.7) LVDs 4.70 cm (3.5-5.7) IVSd 2.20 cm (0.6-1.1) PWd 0.91 cm (0.6-1.1) EF (Teich) 35.50% FS 17.30% EDV (Teich) 158.80 mL TAPSE 1.93 (<1.7) ESV (Teich) 102.40 mL LV Diastology E Decel Time 150.00 (160-240 msec) E/A Ratio 0.81 LAT E' 6.50 (<10 cm/sec) LAT A' 10.20 cm/s E/LAT E' Ratio 14.82 (>14) Aortic Valve AI PHT 734.00 ms AO Peak GR. 3.80 mmHg Mitral Valve MV E Max Jet. 96.00 (40-130 cm/s) MV A Velocity 119.00 (40-130 cm/s) E/A Ratio 0.81 MV Decel. Time 150.00 (160-240 ms) MV PHT 44.00 ms Pulmonary Valve PV Peak Velocity 121.00 (50-150 cm/s) Tricuspid Valve TR P. Velocity 85.00 cm/s RAP Estimate 10.00 mmHg RVSP 12.90 mmHg Left Ventricle Left atrium is mildly enlarged, left ventricle is normal size, moderate concentric left ventricular hypertrophy, severely reduced left ventricular systolic function, visually estimated ejection fraction 30%, there is marked hypokinesis involving mid to distal septum, anterior, anterior apical, apical, inferior and inferior apical wall. There is no left ventricular thrombus seen, grade 1 diastolic dysfunction seen without tissue Doppler evidence of raise left atrial pressure. Right Ventricle Right atrium and right ventricle are mildly enlarged with normal contractility. Aortic Valve Aortic valve is minimally thickened and fibrosed, there is no aortic stenosis or aortic insufficiency. Mitral Valve Mitral valve grossly normal, there is mild mitral regurgitation. Tricuspid Valve Tricuspid valve grossly normal, there is mild tricuspid regurgitation, tricuspid regurgitation jet velocity is inadequate for calculation of the right ventricular systolic pressure. Pulmonic Valve Pulmonic valve is poorly visualized. Great Vessels Aortic root is normal size. Inferior vena cava is dilated without significant inspiratory collapse. Pericardium No significant pericardial effusion noted. Conclusion 1. Biatrial enlargement, normal left ventricular size, moderate concentric left ventricular hypertrophy, visually estimated ejection fraction 30% with segmental wall motion abnormalities described above, there is no left ventricular thrombus seen, Definity contrast was utilized to delineate the endocardial surfaces. Grade 1 diastolic dysfunction seen without tissue Doppler evidence of raise left atrial pressure. 2. Mildly enlarged right ventricle with normal contractility. 3. Mild mitral and tricuspid regurgitation. 4. No significant pericardial effusion noted. 5. Inferior vena cava is dilated without significant inspiratory collapse. Electronically signed by : Jhony Christine MD 06/14/2021 09:54:34
[2021-06-14 04:00] VITALS: BP 122/66; PULSE 69; PULSE 90; RESP 16; TEMP 36.8; O2SAT 98
[2021-06-14 04:51] VITALS: BMI 33.1
[2021-06-14 05:37] LABS: POC Glucose,Bedside 227 (70-110)
--- NOTE | 2021-06-14 06:56 | HMH.ACPN2 ---
Internal Medicine - PN: Subj *Date: 06/14/21 *Time: 06:56 Interval history: Patient without complaints this morning. He is remained in sinus rhythm. Denies chest pain or shortness of breath. Echocardiogram is in process Exam Vital signs and Labs for Last 24 Hours: Temp Pulse Resp BP Pulse Ox 98.3 F 69 16 122/66 98 06/14/21 04:00 06/14/21 04:00 06/14/21 04:00 06/14/21 04:00 06/14/21 04:00 Laboratory Results - last 24 hr 06/13/21 11:59: POC Glucose 253 H 06/13/21 15:11: POC Glucose 297 H 06/13/21 21:35: POC Glucose 315 H* 06/14/21 05:23: POC Glucose 227 H I & O for Last 24 hours: Intake & Output 06/11/21 06/12/21 06/13/21 06/14/21 11:59 11:59 11:59 11:59 Intake Total 120 / 120 1080 / 1080 360 / 360 Balance 120 / 120 1080 / 1080 360 / 360 Weight 270 lb 283 lb 15.286 oz 280 lb 10.375 oz - Constitutional no acute distress - *Routine Respiratory Exam Present: CTA bilaterally - *Routine Cardiovascular Exam Present: RRR - *Routine Abdominal Exam Present: soft, normoactive bowel sounds. Absent: tenderness Assessment and Plan (1) ST elevation [place] (STEMI) Status: Acute Qualifiers: Involved coronary artery: unspecified coronary artery Qualified Code(s): I21.3 - ST elevation (STEMI) myocardial infarction of unspecified site Category: Medical Code(s): I21.3 - ST elevation (STEMI) myocardial infarction of unspecified site (2) Type 2 diabetes mellitus with hyperglycemia Status: Acute Category: Medical Code(s): E11.65 - Type 2 diabetes mellitus with hyperglycemia (3) Left bundle branch block Status: Acute Category: Medical Code(s): I44.7 - Left bundle-branch block, unspecified (4) Tobacco use disorder Status: Acute Category: Medical Code(s): F17.200 - Nicotine dependence, unspecified, uncomplicated (5) HLD (hyperlipidemia) Status: Chronic Qualifiers: Category: Medical Code(s): E78.5 - Hyperlipidemia, unspecified (6) Obesity Status: Chronic Qualifiers: Category: Medical Code(s): E66.9 - Obesity, unspecified - Assessment and plan all Dx Assessment and Plan for all problems:: 1. Echocardiogram today with recommendations from cardiology to follow 2. Increase dose of Metformin to 1000 mg twice daily
--- NOTE | 2021-06-14 07:44 | HMH.CNCARD ---
History of Present Illness Consult date: 06/14/21 Requesting physician: Pierce Borges Consult reason: chest pain Chief complaint: STEMI History of present illness: 50-year-old male admitted to [facility] with STEMI. Patient stated prior to coming into the emergency room he was having severe sharp chest pain that would not ease up. Patient states he had worked half a day and the chest pain seemed to become worse. Patient stated worsening shortness of breath along with chest pain. Patient did complain of nausea with no vomiting. Upon arrival to the emergency room patient was noted to have a STEMI. Patient denied any history of coronary artery disease. Patient does states history of diabetes which is controlled. Patient is a smoker. History of hyperlipidemia and hypertension. Patient did undergo immediate left heart catheterization. Revealed critical three-vessel coronary artery disease accompanied by cardiogenic shock and third-degree AV block. Successful mechanical thrombectomy to the dominant RCA followed by drug-eluting stenting to the proximal mid and distal segments with 2 continuous drug-eluting stents. Successful stenting of chronically occluded LAD and RCA patient does have severe left ventricular dilation with severe to critical elevated LVEDP. Patient was started on Brilinta 90 mg twice daily along with aspirin 81 mg. Echocardiogram was obtained which revealed EF 30% with segmental wall motion abnormality. Grade 1 diastolic dysfunction. Mild MR and TR noted. Patient is a candidate for a LifeVest due to increased risk of sudden . Discussed benefits and risk of LifeVest with patient. Patient verbalized understanding and is agreeable to wear LifeVest. Arrangements are being made for LifeVest approval. Patient denies chest pain, tightness or pressure. Patient states shortness of breath is improving. No swelling noted of the lower extremity. Patient is anxious to go home. Patient is unable to go home until fitted for LifeVest. Patient will need to follow-up with cardiology in 1 week or sooner if signs or symptoms develop. Echo: 1. Biatrial enlargement, normal left ventricular size, moderate concentric left ventricular hypertrophy, visually estimated ejection fraction 30% with segmental wall motion abnormalities described above, there is no left ventricular thrombus seen, Definity contrast was utilized to delineate the endocardial surfaces. Grade 1 diastolic dysfunction seen without tissue Doppler evidence of raise left atrial pressure. 2. Mildly enlarged right ventricle with normal contractility. 3. Mild mitral and tricuspid regurgitation. 4. No significant pericardial effusion noted. 5. Inferior vena cava is dilated without significant inspiratory collapse. LHC: ANGIOGRAPHIC RESULTS (06/11/21) The left main artery Normal The left anterior descending artery Was occluded immediately after a first diagonal artery but proximal to the first septal agent spa desk making it a proximal occlusion. At the end of the procedure the entire LAD was widely patent with excellent inline flow into the distal vessel which supplied the apex. The first diagonal artery has proximal 30 and 40% stenoses The circumflex artery Is a nondominant vessel with stents in the proximal segment which are widely patent. Distal to the stent is a 70% concentric stenosis proximal to 3 obtuse marginal arteries. After the stent was placed there is excellent inline flow to the 3 obtuse marginal arteries The right coronary artery Is a large dominant vessel initially proximally thrombosed. Following revascularization the proximal mid and distal dominant right coronary artery was stented revascularized with excellent inline flow into the posterior descending artery and posterior lateral branch. The KHAN ventriculogram reveals Dilated and severely reduced less than 30% The left ventricular end-diastolic pressure Severe
[2021-06-14 08:00] VITALS: BP 134/84; PULSE 80; PULSE 92; RESP 17; TEMP 36.4; O2SAT 97
[2021-06-14 11:03] LABS: POC Glucose,Bedside 272 (70-110)
[2021-06-14 12:00] VITALS: BP 144/94; PULSE 65; PULSE 84; RESP 16; TEMP 36.9; O2SAT 98
[2021-06-14 16:00] VITALS: BP 132/82; PULSE 88; PULSE 90; RESP 17; TEMP 36.7; O2SAT 95
[2021-06-14 17:07] LABS: POC Glucose,Bedside 185 (70-110)
[2021-06-14 20:00] VITALS: BP 129/64; PULSE 109; RESP 16; TEMP 36.8; O2SAT 97
[2021-06-14 20:37] LABS: POC Glucose,Bedside 187 (70-110)
--- NOTE | 2021-06-15 07:19 | HMH.DCSUM ---
General - General Admission date:: 06/11/21 Discharge date: 06/14/21 HPI HPI: 50-year-old male with history of coronary artery disease presented to the emergency department after acute onset of precordial chest pain and pressure at approximately 3:30 PM. In the emergency department he was rapidly assessed and diagnosed with a STEMI. Dr. Marie was contacted and patient was taken to the [facility] where he underwent left heart catheterization with thrombectomy and stenting. Please see Dr. Marie's note for full details. Hospital Course Hospital Course: Patient presented to the ER and was taken immediately to the [facility] with diagnosis of STEMI. Left heart cath angiogram results are as follows: ANGIOGRAPHIC RESULTS The left main artery Normal The left anterior descending artery Was occluded immediately after a first diagonal artery but proximal to the first septal indoor landscaper/gardener making it a proximal occlusion. At the end of the procedure the entire LAD was widely patent with excellent inline flow into the distal vessel which supplied the apex. The first diagonal artery has proximal 30 and 40% stenoses The circumflex artery Is a nondominant vessel with stents in the proximal segment which are widely patent. Distal to the stent is a 70% concentric stenosis proximal to 3 obtuse marginal arteries. After the stent was placed there is excellent inline flow to the 3 obtuse marginal arteries The right coronary artery Is a large dominant vessel initially proximally thrombosed. Following revascularization the proximal mid and distal dominant right coronary artery was stented revascularized with excellent inline flow into the posterior descending artery and posterior lateral branch. The KHAN ventriculogram reveals Dilated and severely reduced less than 30% The left ventricular end-diastolic pressure Severe to critically elevated at 40 mmHg IMPRESSION Critical three-vessel coronary disease as described above accompanied by cardiogenic shock and third-degree AV block Successful mechanical thrombectomy to the dominant right coronary artery followed by drug-eluting stenting to the proximal mid and distal segments with 2 contiguous drug-eluting stents Successful percutaneous revascularization of a chronically occluded proximal LAD Successful percutaneous revascularization of a severely stenosed circumflex artery Severe left ventricular dilatation with severe to critically elevated LVEDP PLAN 1. Brilinta 90 twice daily plus aspirin 81 mg daily 2. Low-dose diuretics to decrease LVEDP 3. SHELDON inhibitor's and beta-blockers once hemodynamically stable 4. LDL less than 55 to be achieved with high intensity statin 5. Cardiac rehabilitation 6. Avoidance of all tobacco products 7. Aggressive risk factor modification 8. Patient would likely benefit from a LifeVest prior to discharge home. He will be admitted over the weekend and will undergo echocardiogram on Monday to determine if ejection fraction has experienced interval improvement Patient was admitted for telemetry monitoring after left heart catheterization. Patient returned to sinus rhythm and remained in sinus rhythm the remainder of his hospitalization. On the morning of the third patient underwent echocardiogram with results as follows: 1. Biatrial enlargement, normal left ventricular size, moderate concentric left ventricular hypertrophy, visually estimated ejection fraction 30% with segmental wall motion abnormalities described above, there is no left ventricular thrombus seen, Definity contrast was utilized to delineate the endocardial surfaces. Grade 1 diastolic dysfunction seen without tissue Doppler evidence of raise left atrial pressure. 2. Mildly enlarged right ventricle with normal contractility. 3. Mild mitral and tricuspid regurgitation. 4. No significant pericardial effusion noted. 5. Inferior vena cava is dilated without significant i
--- NOTE | 2021-06-15 10:52 | HMH.PHACLD ---
Gaston Case LEFT AFTER HOURS ON 06/14/2021. PATIENT WAS DISCHARGED ON ALL APPROPRIATE MEDICATIONS FOLLOWING A STENT, INCLUDING THE FOLLOWING: -ATORVASTATIN -ENTRESTO -BRILINTA -ASA -CARVEDILOL
== END 2021-06-14 20:27 | disposition home or self-care (01) | DRG 246 ==
LOC: ER 17:16 → CATHLAB 17:25 → 2ND 17:26
PROVIDERS: Internal Medicine; Admitting Provider Family Medicine; Emergency Provider Emergency Medicine; Visit Provider Family Medicine
PROC: 027135Z Dilation of Coronary Artery, Two Arteries with Two Drug-eluting Intraluminal Devices, Percutaneous Approach (ICD-10-PCS; principal; 2021-06-11 16:00)
DX: I21.3 ST elevation (STEMI) myocardial infarction of unspecified site (principal); R57.0 Cardiogenic shock; I44.2 Atrioventricular block, complete; Z20.822 Contact with and (suspected) exposure to COVID-19; I44.7 Left bundle-branch block, unspecified; E11.9 Type 2 diabetes mellitus without complications; F17.210 Nicotine dependence, cigarettes, uncomplicated; I25.10 Atherosclerotic heart disease of native coronary artery without angina pectoris; Z95.5 Presence of coronary angioplasty implant and graft; I10 Essential (primary) hypertension; E78.5 Hyperlipidemia, unspecified; E66.9 Obesity, unspecified; Z68.33 Body mass index [BMI] 33.0-33.9, adult; Z79.84 Long term (current) use of oral hypoglycemic drugs
CPT/HCPCS: 36415; 71045; 80048; 82962; 84484; 85025; 85347; 85610; 92928; 92941; 93005; 93306; 93458; 96374; 99152; 99153; 99284; C1725; C1760; C1769; C1876; C9600; C9606; C9803; J1644; Q9957; Q9967; U0003; U0005

== ENCOUNTER 2021-06-22 13:54 | Outpatient (RCR) | payer OTHER, SELFPAY | END 2021-06-22 13:55 | disposition home or self-care (01) | LOC: PT 13:54 | PROVIDERS: Visit Provider Internal Medicine | DX: I25.10 Atherosclerotic heart disease of native coronary artery without angina pectoris (principal); Z95.5 Presence of coronary angioplasty implant and graft | CPT/HCPCS: 93798 ==

== ENCOUNTER → 2021-06-28 15:00 | Outpatient (CLI) | payer OTHER, SELFPAY ==
[2021-06-28 16:38] LABS: Blood Urea Nitrogen 17 mg/dl (9-20); Calcium 9.2 mg/dl (8.4-10.2); Carbon Dioxide 29 mmol/L (22.0-30.0); Chloride 100 mmol/L (98-107); Estimated Glomerular Filt Rate 89 ml/min (>60); GFR (African American) 107 ML/MIN (>60); Glucose 167 mg/dl (74-100); Sodium 137 mmol/L (136-145)
== END ==
PROVIDERS: PCP Family Medicine; Visit Provider Nurse Practitioner Family
DX: R06.00 Dyspnea, unspecified (principal); I25.10 Atherosclerotic heart disease of native coronary artery without angina pectoris
CPT/HCPCS: 36415; 80048; 95806

== ENCOUNTER → 2021-07-05 13:49 | Outpatient (CLI) | payer OTHER, SELFPAY ==
[2021-07-05 14:48] VITALS: BMI 34.2
== END ==
PROVIDERS: PCP Family Medicine; Visit Provider Family Medicine
DX: Z71.3 Dietary counseling and surveillance (principal); E11.9 Type 2 diabetes mellitus without complications
CPT/HCPCS: 97802

== ENCOUNTER → 2021-09-09 09:09 | Outpatient (CLI) | payer OTHER, SELFPAY ==
--- NOTE | 2021-09-09 09:10 | CA_ITS ---
APPROVED REPORT EXAM: Comprehensive 2D, Doppler, and color-flow Echocardiogram Architect Manager: LYDIA Josue, RVS Ht: 6 ft 4 in Wt: 218lbs BSA: 2.30 HR: 116 bpm BP: 110/80 mmHg Rhythm: NSR Indications: Lifevest-EF check, CAD, LBBB, Hx-NSTEMI, CM 2D Dimensions IVSd 1.40 cm M: 0.6-1.2 LVEF (Visual) 65.00 % PWd 1.40 cm M: 0.6 - 1.2 LVDd 4.79 cm M: 4.2 - 5.9 LVDs 2.49 cm M: 2.5 - 4.0 M-Mode Dimensions RVDd 1.85 cm (0.9-2.6) LVDd 5.38 cm (3.5-5.7) LVDs 3.45 cm (3.5-5.7) IVSd 1.45 cm (0.6-1.1) PWd 1.45 cm (0.6-1.1) EF (Teich) 65.00% FS 35.90% EDV (Teich) 140.10 mL ESV (Teich) 49.10 mL Conclusion 1. Limited echocardiogram was performed to evaluate left ventricular systolic function. 2. Normal left ventricular size, estimated ejection fraction 55% with no regional wall motion abnormality. 3. No significant pericardial effusion noted. Electronically signed by : Jhony Christine MD 09/10/2021 15:00:48
[2021-09-09 11:59] LABS: Basophils # 0.2 K/mm3 (0-0.2); Basophils % 1.2 % (0.1-2.0); Eosinophils # 0.3 K/mm3 (0.0-0.4); Eosinophils % 1.9 % (0.1-12.0); Hemoglobin 17.3 g/dL (14.1-18.0); Lymphocytes # 3.7 K/mm3 (0.7-4.5); Mean Corpuscular HGB Conc 33.2 g/dL (31.8-35.4); Mean Corpuscular Hemoglobin 31.4 pg (27.0-31.2); Mean Corpuscular Volume 94.6 fl (80-94); Mean Platelet Volume 8.9 fl (7.4-10.4); Monocytes # 0.6 K/mm3 (0.1-1.0); Monocytes % 4.9 % (1.7-9.3); Neutrophils % 62.9 % (37.0-80.0); Platelet Count 295 K/mm3 (142-424); Red Cell Distribution Width 14.2 % (11.5-17.5); White Blood Count 12.7 K/mm3 (4.8-10.8)
[2021-09-09 12:07] LABS: Chloride 103 mmol/L (98-107)
[2021-09-09 12:08] LABS: Potassium 4.7 mmoL/L (3.5-5.1); Sodium 137 mmol/L (136-145)
[2021-09-09 12:10] LABS: Alanine Aminotransferase 34 U/L (12-78); Anion Gap 14.7 mEq/L (5-15); Aspartate Amino Transferase 33 U/L (17-59); Bilirubin,Unconjugated 0.3 mg/dL (0.0-1.1); Blood Urea Nitrogen 12 mg/dl (9-20); Carbon Dioxide 24 mmol/L (22.0-30.0); Estimated Glomerular Filt Rate 102 ml/min (>60); GFR (African American) 123 ML/MIN (>60)
[2021-09-09 12:11] LABS: Albumin Level 4.3 g/dl (3.5-5.0); Alkaline Phosphatase 85 U/L (38-126); Bilirubin,Direct 0.4 mg/dl (0.0-0.4); Bilirubin,Indirect 0.3 mg/dL (0.0-0.9); Bilirubin,Total 0.7 mg/dl (0.2-1.3); Calcium 9.3 mg/dl (8.4-10.2); Chol/HDL Ratio 3.5 (1-3.5); Cholesterol 108 mg/dl (140-200); Glucose 131 mg/dl (74-100); HDL Cholesterol 31 mg/dl (40-60); Magnesium 1.8 mg/dl (1.6-2.3); Total Protein,Serum 7.1 g/dl (6.3-8.2); Triglycerides 215 mg/dl (30-150); VLDL Cholesterol 43 mg/dL (0-40)
[2021-09-09 12:22] LABS: Direct LDL Cholesterol 53.32 mg/dL (100-129)
[2021-09-09 12:28] LABS: Free T4 (Free Thyroxine) 1.21 ng/dl (0.78-2.19)
[2021-09-09 12:41] LABS: Thyroid Stimulating Hormone 1.49 uIU/mL (0.465-4.68)
== END ==
PROVIDERS: PCP Family Medicine; Visit Provider Physician Assistant
DX: R00.0 Tachycardia, unspecified (principal); I25.10 Atherosclerotic heart disease of native coronary artery without angina pectoris; I21.3 ST elevation (STEMI) myocardial infarction of unspecified site; I21.4 Non-ST elevation (NSTEMI) myocardial infarction; I44.7 Left bundle-branch block, unspecified; I10 Essential (primary) hypertension; E78.2 Mixed hyperlipidemia; I95.9 Hypotension, unspecified; R94.30 Abnormal result of cardiovascular function study, unspecified; Z72.0 Tobacco use
CPT/HCPCS: 36415; 80048; 80061; 80076; 83735; 84439; 84443; 85025; 93308

== ENCOUNTER → 2021-09-16 20:21 | Outpatient (CLI) | payer OTHER, SELFPAY | PROVIDERS: PCP Family Medicine; Visit Provider Physician Assistant | DX: G47.33 Obstructive sleep apnea (adult) (pediatric) (principal) | CPT/HCPCS: 95810 ==

== ENCOUNTER 2022-07-20 17:17 | Emergency (ER) | payer OTHER, SELFPAY ==
[2022-07-20] VITALS (8 sets, daily range): BP systolic 124–146; BP diastolic 78–87; PULSE 64–78; RESP 16–20; TEMP 36.6–37.1; O2SAT 90–99; BMI 35.5
--- NOTE | 2022-07-20 17:17 | ECG_ITS ---
APPROVED REPORT Exam: Resting ECG HR:76 bpm ECG Measurements Heart Rate 76 AXES WV 191 P 30 QRSd 92 QRS -38 QT 372 T 39 QTc 402 Conclusion SINUS RHYTHM POSSIBLE LEFT ATRIAL ENLARGEMENT [-0.1mV P-WAVE IN V1/V2] LEFT AXIS DEVIATION [QRS AXIS < -30] PATTERN CONSISTENT WITH PULMONARY DISEASE ABNORMAL ECG UNCONFIRMED REPORT Electronically signed by : Pierce Davis MD 07/20/2022 21:20:21
--- NOTE | 2022-07-20 17:37 | XR_ITS ---
PROCEDURE INFORMATION: Exam: XR Chest Exam date and time: 07/20/2022 6:05 PM Age: 51 years old Clinical indication: Pain; Chest pressure; Additional info: Chest pain TECHNIQUE: Imaging protocol: Radiologic exam of the chest. Views: 1 view. COMPARISON: CR XR CHEST PORTABLE 06/11/2021 4:13 PM FINDINGS: Lungs: Lung volumes are mildly improved. Trace streaky markings in the left lower lobe are not dramatically changed suggesting parenchymal scarring. The lungs appear otherwise clear. No focal areas of consolidation. Pleural spaces: No pleural effusions or appreciable adenopathy. Negative for pneumothorax. Heart/Mediastinum: Cardiac silhouette and pulmonary vasculature are within range of normal. Bones/joints: There is no evidence of acute fracture. The thoracic spine demonstrates mild degenerative changes at multiple levels. IMPRESSION: Negative for an acute cardiopulmonary abnormality.
[2022-07-20 17:47] LABS: Chloride 98 mmol/L (98-107); Sodium 132 mmol/L (136-145)
[2022-07-20 17:48] LABS: Potassium 5.7 mmoL/L (3.5-5.1)
[2022-07-20 17:51] LABS: Anion Gap 14.7 mEq/L (5-15); Blood Urea Nitrogen 12 mg/dl (9-20); Calcium 8.9 mg/dl (8.4-10.2); Carbon Dioxide 25 mmol/L (22.0-30.0); Creatinine Clearance Estimated 235 mL/min (50-200); Estimated Glomerular Filt Rate 118 ml/min (>60); GFR (African American) 143 ML/MIN (>60); Glucose 252 mg/dl (74-100)
--- NOTE | 2022-07-20 17:56 | HMH.EDGENADL ---
Discharge Plan Disposition Patient Disposition: Still a Patient Chief Complaint: Chest Pain Prescriptions Prescriptions: No Action Ozempic 0.25 mg or 0.5 mg(2 mg/1.5 mL) pen injector 0.5 mg SQ WEEKLY Label Comments: INJECT 0.5MG SUBCUTANEOUSLY WEEKLY ranolazine [Ranexa] 500 mg tablet extended release 12 hr 500 mg PO BID Qty: 60 3RF clopidogrel [Plavix] 75 mg tablet 75 mg PO DAILY Qty: 30 11RF valsartan 320 mg tablet 320 mg PO DAILY Qty: 30 5RF nadolol 80 mg tablet 80 mg PO BID Qty: 60 4RF digoxin 125 mcg (0.125 mg) tablet See Rx Instructions .ROUTE .COMPLEX Qty: 30 5RF Dose Instruction: Take 1 tablet by mouth once daily Rx Instructions: Take 1 tablet by mouth once daily isosorbide mononitrate 30 mg tablet extended release 24 hr See Rx Instructions .ROUTE .COMPLEX Qty: 90 1RF Dose Instruction: Take 1 tablet by mouth once daily Rx Instructions: Take 1 tablet by mouth once daily aspirin 81 MG tablet,delayed release (DR/EC) 81 mg PO DAILY Qty: 30 0RF metformin 1,000 MG tablet 1,000 mg PO BID Qty: 60 2RF empagliflozin 25 MG tablet 25 mg PO DAILY Qty: 30 2RF atorvastatin 40 MG tablet 40 mg PO HS Qty: 30 0RF Referrals Follow up/Referrals: Provider,Referral, [Referring] - See instructions Clinical Impressions Clinical Impression: Chest pain Discharge ED Provider: Mayco Real General Adult HPI General Chief complaint: Chest Pain Stated complaint: chest pain, high bp Time Seen by Provider: 07/20/22 17:20 History of Present Illness HPI narrative: 51-year-old male presents with history of coronary disease he says he has had high blood pressure today checked it multiple times. He denies headache nausea vomiting numbness weakness or tingling arms or legs. He says that the chest pain is typical for him and he has more of a chest pressure today. He called the cardiology office today and was recommended to come into the emergency room because of the blood pressure. No hemoptysis shortness of breath radiation of the pain to the back or arms. Related Data Home Medications Medication Instructions Recorded Confirmed semaglutide 0.25 mg or 0.5 mg (2 0.5 mg SQ WEEKLY 09/09/21 03/02/22 mg/1.5 mL) subcutaneous pen injector (Ozempic) Previous Rx's Medication Instructions Recorded aspirin 81 mg tablet,delayed 81 mg PO DAILY ##30 06/14/21 release atorvastatin 40 mg tablet 40 mg PO HS #30 tabs 06/14/21 empagliflozin 25 mg tablet 25 mg PO DAILY #30 tabs 06/14/21 metformin 1,000 mg tablet 1,000 mg PO BID #60 tabs 06/14/21 nadolol 80 mg tablet 80 mg PO BID #60 tabs 09/29/21 ranolazine 500 mg tablet,extended 500 mg PO BID #60 tabs 12/23/21 release,12 hr (Ranexa) clopidogrel 75 mg tablet (Plavix) 75 mg PO DAILY #30 tabs 03/02/22 valsartan 320 mg tablet 320 mg PO DAILY #30 tabs 03/02/22 digoxin 125 mcg (0.125 mg) tablet See Rx Instructions .Route 04/28/22 .COMPLEX #30 tabs isosorbide mononitrate 30 mg See Rx Instructions .Route 06/21/22 tablet,extended release 24 hr .COMPLEX #90 tabs Allergies Allergy/AdvReac Type Severity Reaction Status Date / Time No Known Allergies Allergy Verified 03/02/22 08:41 [facility] Disclaimer: The information contained in this section may have been updated after the patient was seen, as this information can be updated by other users. Medical History Angina pectoris Cardiomyopathy, ischemic Congestive heart failure with LV diastolic dysfunction, NYHA class 3 Diastolic CHF, chronic Systolic congestive heart failure Social History Smoking Status: Current every day smoker tobacco type: cigarettes packs per day: 2 alcohol intake: never current occupational status: employed Travel in the last 8 weeks: Inside the [place] household members: significant other cu
[2022-07-20 18:05] LABS: Troponin I < 0.01 ng/ml (0.00-0.034)
[2022-07-20 18:15] LABS: Basophils # 0.3 K/mm3 (0-0.2); Basophils % 2.4 % (0.1-2.0); Eosinophils # 0.3 K/mm3 (0.0-0.4); Eosinophils % 2.2 % (0.1-12.0); Hematocrit 52.3 % (42.0-52.0); Hemoglobin 16.8 g/dL (14.1-18.0); Lymphocytes # 3.9 K/mm3 (0.7-4.5); Lymphocytes % 33.2 % (10-50); Mean Corpuscular HGB Conc 32.1 g/dL (31.8-35.4); Mean Corpuscular Hemoglobin 29.7 pg (27.0-31.2); Mean Corpuscular Volume 92.7 fl (80-94); Mean Platelet Volume 9.2 fl (7.4-10.4); Monocytes # 0.6 K/mm3 (0.1-1.0); Monocytes % 5.5 % (1.7-9.3); Neutrophils # 6.6 K/mm3 (1.8-7.8); Neutrophils % 56.6 % (37.0-80.0); Platelet Count 212 K/mm3 (142-424); Red Blood Count 5.64 M/mm3 (4.60-6.20); White Blood Count 11.6 K/mm3 (4.8-10.8)
--- NOTE | 2022-07-20 19:02 | PC.NURSE ---
shift change report given to laverne leon and yudyrn
--- NOTE | 2022-07-20 19:13 | PC.NURSE ---
updated pt on POC, pt states no needs at this time, call light within reach.
--- NOTE | 2022-07-20 19:19 | PC.NURSE ---
Rechecked pt condition. No needs or complaints voiced at this time.
[2022-07-20 21:10] LABS: Troponin I < 0.01 ng/ml (0.00-0.034)
--- NOTE | 2022-07-20 21:12 | PC.NURSE ---
Pt/ family updated at this time
== END 2022-07-20 21:42 | disposition home or self-care (01) ==
PROVIDERS: Emergency Provider Emergency Medicine; PCP Family Medicine
DX: R07.89 Other chest pain (principal); I25.10 Atherosclerotic heart disease of native coronary artery without angina pectoris; I50.32 Chronic diastolic (congestive) heart failure; I11.0 Hypertensive heart disease with heart failure; F17.210 Nicotine dependence, cigarettes, uncomplicated
CPT/HCPCS: 71045; 80048; 84484; 85025; 93005; 99285

== ENCOUNTER → 2022-09-05 15:16 | Outpatient (CLI) | payer OTHER, SELFPAY ==
[2022-09-05 16:09] LABS: Basophils # 0.2 K/mm3 (0-0.2); Basophils % 2.2 % (0.1-2.0); Eosinophils # 0.2 K/mm3 (0.0-0.4); Eosinophils % 2.5 % (0.1-12.0); Hematocrit 54.1 % (42.0-52.0); Lymphocytes # 3.3 K/mm3 (0.7-4.5); Lymphocytes % 35.2 % (10-50); Mean Corpuscular HGB Conc 33.2 g/dL (31.8-35.4); Mean Corpuscular Hemoglobin 30.3 pg (27.0-31.2); Mean Corpuscular Volume 91.3 fl (80-94); Mean Platelet Volume 9.3 fl (7.4-10.4); Monocytes # 0.6 K/mm3 (0.1-1.0); Monocytes % 5.8 % (1.7-9.3); Neutrophils # 5.1 K/mm3 (1.8-7.8); Neutrophils % 54.3 % (37.0-80.0); Platelet Count 226 K/mm3 (142-424); Red Blood Count 5.93 M/mm3 (4.60-6.20); Red Cell Distribution Width 13.9 % (11.5-17.5); White Blood Count 9.5 K/mm3 (4.8-10.8)
[2022-09-05 16:16] LABS: Hemoglobin A1C 12.8 % (4.0-6.0)
[2022-09-05 16:42] LABS: Alanine Aminotransferase 28 U/L (12-78); Albumin Level 4.6 g/dl (3.5-5.0); Albumin/Globulin Ratio 1.5 (1.1-1.8); Alkaline Phosphatase 79 U/L (38-126); Anion Gap 13.8 mEq/L (5-15); Aspartate Amino Transferase 25 U/L (17-59); Bilirubin,Total 0.6 mg/dl (0.2-1.3); Blood Urea Nitrogen 14 mg/dl (9-20); Calcium 9.2 mg/dl (8.4-10.2); Carbon Dioxide 26 mmol/L (22.0-30.0); Chloride 95 mmol/L (98-107); Chol/HDL Ratio 6.2 (1-3.5); Cholesterol 204 mg/dl (140-200); Estimated Glomerular Filt Rate 118 ml/min (>60); GFR (African American) 143 ML/MIN (>60); Globulin 3.1 g/dL (1.3-3.2); Glucose 273 mg/dl (74-100); HDL Cholesterol 33 mg/dl (40-60); Potassium 4.8 mmoL/L (3.5-5.1); Sodium 130 mmol/L (136-145); Total Protein,Serum 7.7 g/dl (6.3-8.2); Triglycerides 287 mg/dl (30-150); VLDL Cholesterol 57 mg/dL (0-40)
[2022-09-05 16:50] LABS: Digoxin < 0.40 ng/ml (0.2-2.00)
[2022-09-05 16:52] LABS: Direct LDL Cholesterol 128.65 mg/dL (100-129)
[2022-09-05 17:12] LABS: Thyroid Stimulating Hormone 0.84 uIU/mL (0.465-4.68)
[2022-09-05 17:31] LABS: Vitamin B12 466 pg/mL (239-931)
== END ==
PROVIDERS: PCP Nurse Practitioner Family; Visit Provider Nurse Practitioner Family
DX: R00.2 Palpitations (principal); R26.81 Unsteadiness on feet; E11.49 Type 2 diabetes mellitus with other diabetic neurological complication; Z79.84 Long term (current) use of oral hypoglycemic drugs; Z86.79 Personal history of other diseases of the circulatory system; Z51.81 Encounter for therapeutic drug level monitoring
CPT/HCPCS: 36415; 80053; 80061; 80162; 82607; 83036; 83735; 84443; 85025

== ENCOUNTER → 2022-10-18 16:55 | Outpatient (CLI) | payer OTHER, SELFPAY | PROVIDERS: PCP Nurse Practitioner Family; Visit Provider Specialist | DX: G47.33 Obstructive sleep apnea (adult) (pediatric) (principal); R06.83 Snoring | CPT/HCPCS: 95806 ==

== ENCOUNTER 2022-12-08 15:37 | Emergency (ER) | payer OTHER, SELFPAY ==
[2022-12-08] VITALS (9 sets, daily range): BP systolic 108–153; BP diastolic 66–85; PULSE 76–85; RESP 16–18; TEMP 36.1–36.8; O2SAT 95–98; BMI 34.4
--- NOTE | 2022-12-08 15:37 | ECG_ITS ---
APPROVED REPORT Exam: Resting ECG HR:87 bpm ECG Measurements Heart Rate 87 AXES WV 206 P 31 QRSd 99 QRS -34 QT 362 T 46 QTc 407 Conclusion SINUS RHYTHM POSSIBLE LEFT ATRIAL ENLARGEMENT [-0.1mV P-WAVE IN V1/V2] LEFT AXIS DEVIATION [QRS AXIS < -30] ABNORMAL ECG UNCONFIRMED REPORT Electronically signed by : Pierce Davis MD 12/09/2022 08:51:58
--- NOTE | 2022-12-08 16:10 | XR_ITS ---
FINAL REPORT CLINICAL HISTORY: Precordial chest pain COMPARISON: 07/18/2022 FINDINGS: Two views of the chest were obtained. The heart size and pulmonary vascularity are within normal limits. The mediastinum is normal. Mild bibasilar atelectasis. There is no pneumothorax. The bony thorax is intact. IMPRESSION: Mild bibasilar atelectasis. Reviewed, Interpreted and Dictated by Pedro Figueroa III, MD Transcribed by Fariha Belcher Authenticated and . [facility]
--- NOTE | 2022-12-08 16:19 | PC.NURSE ---
Pt back from xr
[2022-12-08 16:21] LABS: Basophils # 0.1 K/mm3 (0-0.2); Eosinophils # 0.3 K/mm3 (0.0-0.4); Eosinophils % 2.6 % (0.1-12.0); Hematocrit 53.2 % (42.0-52.0); Hemoglobin 17.1 g/dL (14.1-18.0); Lymphocytes # 3.4 K/mm3 (0.7-4.5); Lymphocytes % 34.6 % (10-50); Mean Corpuscular HGB Conc 32.1 g/dL (31.8-35.4); Mean Corpuscular Hemoglobin 29.9 pg (27.0-31.2); Mean Corpuscular Volume 93.2 fl (80-94); Mean Platelet Volume 9.1 fl (7.4-10.4); Monocytes # 0.5 K/mm3 (0.1-1.0); Neutrophils # 5.7 K/mm3 (1.8-7.8); Neutrophils % 56.8 % (37.0-80.0); Platelet Count 232 K/mm3 (142-424); Red Blood Count 5.71 M/mm3 (4.60-6.20); Red Cell Distribution Width 14.3 % (11.5-17.5)
--- NOTE | 2022-12-08 16:25 | HMH.EDGENADL ---
Discharge Plan Disposition Patient Disposition: Home, Self-Care Prescriptions Prescriptions: No Action Ozempic 0.25 mg or 0.5 mg(2 mg/1.5 mL) pen injector 0.5 mg SQ WEEKLY Patient Comments: INJECT 0.5MG SUBCUTANEOUSLY WEEKLY clopidogrel [Plavix] 75 mg tablet 75 mg PO DAILY Qty: 30 11RF hydroxyzine pamoate [Vistaril] 25 mg capsule 25 mg PO HS PRN (Reason: Insomnia, anxiety) Rx Instructions: 25 or 50 mg p.o. nightly have an hour before bedtime isosorbide mononitrate 60 mg tablet extended release 24 hr 60 mg PO DAILY Qty: 30 3RF ranolazine 1,000 mg tablet extended release 12 hr 1,000 mg PO BID Qty: 60 3RF atorvastatin 40 mg tablet 40 mg PO HS Qty: 90 3RF empagliflozin 25 mg tablet 25 mg PO DAILY Qty: 30 2RF digoxin 125 mcg (0.125 mg) tablet See Rx Instructions .ROUTE .COMPLEX Qty: 90 1RF Dose Instruction: Take 1 tablet by mouth once daily Rx Instructions: Take 1 tablet by mouth once daily nadolol 80 mg tablet 80 mg PO BID Qty: 180 0RF valsartan 320 mg tablet 320 mg PO DAILY Qty: 90 0RF aspirin 81 MG tablet,delayed release (DR/EC) 81 mg PO DAILY Qty: 30 0RF metformin 1,000 MG tablet 1,000 mg PO BID Qty: 60 2RF Referrals Follow up/Referrals: Yas Longo PA [Primary Care Provider] - See instructions Activity Restrictions/Add. Instructions Additional Instructions/Restrictions: Please continue your follow-up appointment with Dr. Marie tomorrow. Also please discuss with your primary care doctor the incidental findings on your CAT scan which include mediastinal adenopathy and questionable heterogeneity of the liver. A CAT scan in 3 months of your chest was recommended follow-up and an MRI of your liver was recommended and follow-up that this could be done by your primary care physician at their discretion. Clinical Impressions Clinical Impression: Atypical chest pain Discharge ED Provider: Laya Betancourt General Adult HPI General Chief complaint: Chest Pain Stated complaint: Chest Pain Time Seen by Provider: 12/08/22 16:20 Mode of Arrival: Ambulatory Source of Information: Patient Limitations: No Limitations Description of Symptoms (Recalled from ER Triage Doc. by RN): Presents to ED with complaints of midsternal chest pain that started this morning while he was sitting at home. 162 mg Aspirin [employer] with no relief. +Plavix. Patient reports hx of heart attacks and 8 stents placed. Recent Cardiology appointment on monday for similar episode. recommended to increase Imdur to 60 mg daily and Ranexa 1000mg BID as well as a nuclear stress test scheduled for tomorrow. History of Present Illness HPI narrative: Patient is a 51-year-old male with a history of coronary disease has had multiple stents in the past is followed by Dr. Marie presents today with chest pain. States he has been having chest pain ongoing for the last year and he has an outpatient stress that actually ordered for tomorrow with Dr. Marie but over the last few days its been intermittent and worsening and constant all day today. Denies any shortness of breath any radiation any diaphoresis or nausea associated with this. This is not exertional he states. No fevers chills lower extremity swelling hemoptysis or history of DVT or PE. Related Data Home Medications Medication Instructions Recorded Confirmed semaglutide 0.25 mg or 0.5 mg (2 0.5 mg SQ WEEKLY 09/09/21 10/17/22 mg/1.5 mL) subcutaneous pen injector (Ozempic) hydroxyzine pamoate 25 mg capsule 25 mg PO HS PRN Insomnia, anxiety 12/05/22 (Vistaril) Previous Rx's Medication Instructions Recorded aspirin 81 mg tablet,delayed 81 mg PO DAILY ##30 06/14/21 release metformin 1,000 mg tablet 1,000 mg PO BID #60 tabs 06/14/21 clopidogrel 75 mg tablet (Plavix) 75 mg PO DAILY #30 tabs 03/02/22 digoxin 125 mcg (0.125 mg) tablet See Rx Instructions .Route 09/05/22 .COMPLEX #90 ta
--- NOTE | 2022-12-08 16:30 | PC.NURSE ---
PT WAS AT RAD WHEN ROUNDING ON PTS
[2022-12-08 16:42] LABS: Anion Gap 17.3 mEq/L (5-15); Blood Urea Nitrogen 10 mg/dl (9-20); Calcium 9.3 mg/dl (8.4-10.2); Carbon Dioxide 27 mmol/L (22.0-30.0); Chloride 96 mmol/L (98-107); Creatinine Clearance Estimated 227 mL/min (50-200); Estimated Glomerular Filt Rate 118 ml/min (>60); GFR (African American) 143 ML/MIN (>60); Glucose 223 mg/dl (74-100); Potassium 4.3 mmoL/L (3.5-5.1); Sodium 136 mmol/L (136-145)
[2022-12-08 16:57] LABS: Troponin I < 0.01 ng/ml (0.00-0.034)
--- NOTE | 2022-12-08 17:26 | CT_ITS ---
PROCEDURE INFORMATION: Exam: CTA Chest With Contrast Exam date and time: 12/08/2022 5:48 PM Age: 51 years old Clinical indication: Other: Chest pain; Additional info: Chest pain, dimer >1 TECHNIQUE: Imaging protocol: Computed tomographic angiography of the chest with contrast. Exam focused on the arteries. 3D rendering (Not supervised by radiologist): MIP and/or 3D reconstructed images were created by the technologist. Radiation optimization: All CT scans at this facility use at least one of these dose optimization techniques: automated exposure control; mA and/or kV adjustment per patient size (includes targeted exams where dose is matched to clinical indication); or iterative reconstruction. Contrast material: ISOVUE; Contrast volume: 70 ml; Contrast route: INTRAVENOUS (IV); REPORTING DATA: Count of CT and Cardiac NM exams in prior 12 months: This patient has received 0 known CTs and 0 known cardiac nuclear medicine studies in the 12 months prior to the current study. COMPARISON: CR XR CHEST 2V 12/08/2022 4:06 PM FINDINGS: Pulmonary arteries: Normal. No pulmonary emboli. Aorta: Atherosclerotic changes of the thoracic aorta. Aorta normal caliber. Lungs: Lungs are clear. Pleural spaces: Unremarkable. No pneumothorax. No pleural effusion. Heart: Unremarkable. No cardiomegaly. No pericardial effusion. Coronary arteries: Coronary artery calcifications are noted. Lymph nodes: Diffuse mediastinal lymphadenopathy noted with multiple mildly enlarged nodes including the right paratracheal region largest measuring 12 mm and AP window region largest measuring 12 mm and subcarinal region largest measuring 10 mm. Enlarged prevascular node measuring 12 mm also noted. Mildly enlarged right infrahilar node also identified. Liver: Mottled inhomogeneous low-density areas in the partially included liver. Upper abdomen viscera otherwise unremarkable. Bones/joints: Unremarkable. No acute fracture. Soft tissues: See Liver finding. IMPRESSION: 1. No evident PE. No other acute abnormalities. 2. Nonspecific mediastinal and right hilar adenopathy. Benign versus malignant etiologies can not be differentiated. Consider follow-up CT in 3 months to ensure stability. 3. Inhomogeneous mottled appearance of the partially included liver not well assessed with the current study. This might be due to geographic fatty liver changes but the possibility of developing focal liver lesions can not be excluded. Further assessment with nonemergent MRI of the liver advised.
--- NOTE | 2022-12-08 18:10 | PC.NURSE ---
ounded on patient and reassessed pain. Patient states morphine did not help. MD notified
--- NOTE | 2022-12-08 18:24 | PC.NURSE ---
V/O for GI cocktail per
[2022-12-08 19:28] LABS: Troponin I < 0.01 ng/ml (0.00-0.034)
== END 2022-12-08 19:49 | disposition home or self-care (01) ==
PROVIDERS: Emergency Provider Student in an Organized Health Care Education/Training Program; PCP Physician Assistant
DX: R07.89 Other chest pain (principal); I25.119 Atherosclerotic heart disease of native coronary artery with unspecified angina pectoris; I11.0 Hypertensive heart disease with heart failure; I50.40 Unspecified combined systolic (congestive) and diastolic (congestive) heart failure; E11.9 Type 2 diabetes mellitus without complications; I25.5 Ischemic cardiomyopathy; I25.2 Old myocardial infarction; E78.5 Hyperlipidemia, unspecified; G47.33 Obstructive sleep apnea (adult) (pediatric); F41.9 Anxiety disorder, unspecified; F17.210 Nicotine dependence, cigarettes, uncomplicated
CPT/HCPCS: 36415; 71046; 71275; 80048; 84484; 85025; 85378; 93005; 96374; 99285; Q9967

== ENCOUNTER → 2022-12-09 11:11 | Outpatient (CLI) | payer OTHER, SELFPAY ==
--- NOTE | 2022-12-09 | CA_ITS ---
APPROVED REPORT Exam: Pharmacologic Technologist: Hien Arenas, Ht: 6 ft 5 in Wt: 295 lbs BSA: 2.64 m2 HR: 74 bpm BP: 119/76 mmHg Rhythm: NSR, OLD INFERIOR AL Indications: CP, CAD Medical History Medical History: HTN, Hyperlipidemia, Diabetes, Smoking Medications: Asa,,,,, Metformin,,,,, Atorvastatin,,,,, Digoxin,,,,, CloPIdogrel,,,,, Valsartan,,,,, Nadolol,,,,, Imdur,,,,, Vistaril,,,,, Ranolazine,,,,, EMpagliflozin,,,,, SeMaglutide,,,,, Allergies: No known drug allergies Cardiac Risk Factors: HTN, Hyperlipidemia, , Diabetes , Smoking Stress Test Details Test: LEXISCAN HR Resting HR: 74 bpm Max Heart Rate (APMHR): 167 bpm Max HR Achieved: 82 bpm Target HR (85% APMHR): 142 bpm % of APMHR: 49 Recovery HR: 80 bpm BP Resting BP: 119/76 mmHg Max BP: 146/83 mmHg Recovery BP: 137.0/77.0 mmHg ECG Resting ECG: NSR, OLD INFERIOR AL Stress ECG: No change Arrhythmia: None Recovery ECG: No change Recovery Arrhythmia: None Clinical Exercise duration: 04:01 min Highest Stage Achieved: Exercise capacity: n/a METs Stress ECG Conclusion PT HAD VERY BRIEF SOA, MILD HEAD DISCOMFORT NO CP NO SIGNIFICANT CHANGES UNREMARKABLE LEXISCAN STRESS MYOVIEW IMAGES REPORTED SEPARATELY Test Summary REST 02:56 . . 74 . 119/ 76 . . Stage 1 01:00 . . 80 . . . . Stage 2 01:00 . . 80 . . . . Stage 3 01:00 . . 80 . 131/ 83 . . Stage 4 01:00 . . 79 . 130/ 78 . . Stage 4 01:01 . . 79 . 130/ 78 . Stop exercise at 04:01 RECOVERY 01:00 . . 80 . . . . RECOVERY 02:00 . . 79 . 134/ 80 . . RECOVERY 03:00 . . 80 . 137/ 77 . . RECOVERY 03:16 . . 80 . 137/ 77 . . Electronically signed by : Brittany Cristina, 12/12/2022 18:02:45
--- NOTE | 2022-12-09 11:11 | NM_ITS ---
APPROVED REPORT Exam: Nuclear Stress Test Indication: CAD, 8 STENTS, HTN, DM, HYPERLIPIDEMIA, TOB USE, C.P., SOB, SYNCOPE, FATIGUE Patient Location: Outpatient Stress Tech: Hien Arenas NE Tech:Ankita LockhartMEREDITH boo RT (R)(N)(M) Ht: 6 ft 5 in Wt: 280 lbs HR: 74 bpm BP: 119/76 mmHg BSA: 2.58 m2 Rhythm: NSR TID: 1.11 BMI: 33.1 History: CAD, 8 STENTS, HTN, DM, HYPERLIPIDEMIA, TOB USE, C.P., SOB, SYNCOPE, FATIGUE Procedure: Patient received 0.4 mg of intravenous Lexiscan, resting heart rate 74 bpm, resting blood pressure 119/76 mmHg, with Lexiscan maximum heart rate achieved was 81 bpm which is 49 % of the maximum predicted heart rate and blood pressure was 146/83 mmHg. With Lexiscan, patient denied any complaint of chest pain. With Adenosine, patient denied any complaint of chest pain. Cardiac Stress and Resting SPECT Images: Cardiac Stress and Resting SPECT images were obtained using technetium 99m Myoview 30.6 mCi stress and 10.16 mCi at rest. Resting and stress imaging in both supine and prone positions demonstrate a large sized, severe, fixed perfusion defect in the inferior and inferoseptal LV haley from the base and extending distally towards the inferoapical region. Gated imaging demonstrates mild reduction in global LV systolic function. There is moderate to severe hypokinesis in the inferior and inferoseptal LV haley. LVEF is calculated at 45%. Conclusion: Large sized, severe, fixed perfusion defect in the inferior and inferoseptal LV haley from the base and extending distally towards the inferoapical region. Findings are suggestive of prior infarct with no evidence of reversible ischemia. Gated imaging demonstrates mild reduction in global LV systolic function. There is moderate to severe hypokinesis in the inferior and inferoseptal LV haley. LVEF is calculated at 45%. Electronically signed by : Brittany Cristina, 12/12/2022 18:07:37
== END ==
PROVIDERS: PCP Nurse Practitioner Family; Visit Provider Nurse Practitioner Family
DX: R06.09 Other forms of dyspnea (principal); I20.8 Other forms of angina pectoris; I50.30 Unspecified diastolic (congestive) heart failure; I50.32 Chronic diastolic (congestive) heart failure; E78.2 Mixed hyperlipidemia; R94.31 Abnormal electrocardiogram [ECG] [EKG]; E66.9 Obesity, unspecified; Z68.34 Body mass index [BMI] 34.0-34.9, adult; F17.200 Nicotine dependence, unspecified, uncomplicated
CPT/HCPCS: 78452; 93017; A9502; J2785

== ENCOUNTER → 2023-01-23 13:39 | Outpatient (CLI) | payer OTHER, SELFPAY ==
--- NOTE | 2023-01-23 13:41 | CA_ITS ---
APPROVED REPORT EXAM: Comprehensive 2D, Doppler, and color-flow Echocardiogram Heat Pump Installer: Amrita Porras RDCS Ht: 6 ft 5 in Wt: 287lbs BSA: 2.61 BP: 131/80 mmHg Indications: CHF,RBBB,PRIYA,HTN,DM,HLP 2D Dimensions LVOT 2.60 cm (M/F) 1.5-2.5 M-Mode Dimensions RVDd 2.15 cm (0.9-2.6) LA Diam 2.91 cm (1.9-4.0) LVDd 5.58 cm (3.5-5.7) Ao Diam 4.45 cm (2.0-3.7) LVDs 4.11 cm (3.5-5.7) IVSd 1.22 cm (0.6-1.1) PWd 1.29 cm (0.6-1.1) EF (Teich) 51.00% FS 26.30% EDV (Teich) 152.40 mL TAPSE 1.93 (<1.7) ESV (Teich) 74.70 mL LV Diastology E Decel Time 143.00 (160-240 msec) E/A Ratio 0.5 MED E' 3.60 (< 7 cm/sec) E'/MED E' Ratio 16.42 (>14) LAT E' 4.50 (<10 cm/sec) E/LAT E' Ratio 13.13 (>14) Mitral Valve MV E Max Jet. 59.00 (40-130 cm/s) MV A Velocity 120.00 (40-130 cm/s) E/A Ratio 0.49 MV Decel. Time 143.00 (160-240 ms) MV PHT 42.00 ms Left Ventricle The left ventricle is normal size. The left ventricular systolic function is normal. The left ventricular ejection fraction is within the normal range. There is marked increase in LV wall thickness (IVSd=1.8 cm). No evidence of increased LVOT gradient at rest. There is moderate hypokinesis of the septal, inferoseptal, and anterseptal LV haley. The diastolic function is indeterminate. LVEF is 50-55%. Right Ventricle The right ventricle is normal size. The right ventricular systolic function is normal. Atria The left atrium size is normal. The right atrium size is normal. Aortic Valve The aortic valve is mildly thickened. There is no aortic valvular stenosis. Mild aortic regurgitation. Mitral Valve The mitral valve is normal in structure. No systolic anterior motion (JENNA) of the MV leaflets. No evidence of mitral valve stenosis. Mild mitral regurgitation. Tricuspid Valve The tricuspid valve leaflets are thin and pliable. Trace tricuspid regurgitation. Pulmonic Valve The pulmonary valve is normal in structure. Trace pulmonic regurgitation. Great Vessels Aortic root is mildly dilated. Aortic root measures 4.2 cm in diameter. The ascending aorta is not well visualized. IVC is normal in size and collapses >50% with inspiration. Pericardium There is no pericardial effusion. Conclusion Normal biventricular systolic function. Markedly thickened IVS (IVSd=1.8 cm). Mild aortic root dilation Mild AI. Mild MR. Findings are suggestive of possible HCM in the setting of increased IVSd. Further work-up with cardiac MRI is recommended. Electronically signed by : Brittany Cristina, 01/24/2023 12:16:08
== END ==
PROVIDERS: PCP Physician Assistant; Visit Provider Internal Medicine
DX: I50.32 Chronic diastolic (congestive) heart failure (principal); I50.30 Unspecified diastolic (congestive) heart failure; I20.8 Other forms of angina pectoris; R94.31 Abnormal electrocardiogram [ECG] [EKG]; E78.5 Hyperlipidemia, unspecified; I10 Essential (primary) hypertension; E11.9 Type 2 diabetes mellitus without complications; E66.9 Obesity, unspecified; Z68.34 Body mass index [BMI] 34.0-34.9, adult; Z79.84 Long term (current) use of oral hypoglycemic drugs
CPT/HCPCS: 93306

== ENCOUNTER 2023-02-23 07:46 | Day surgery (SDC) | payer OTHER, SELFPAY ==
[2023-02-23] VITALS (13 sets, daily range): BP systolic 108–148; BP diastolic 71–90; PULSE 74–92; RESP 17–18; O2SAT 90–98; BMI 33.7
--- NOTE | 2023-02-23 | IR_ITS ---
APPROVED REPORT Patient Location: Outpatient PROCEDURES Left heart catheterization Left ventriculogram Selective coronary angiogram Drug-eluting stent deployment to the mid LAD Drug-eluting stent deployment to the mid dominant right coronary INDICATION Coronary artery disease, High risk abnormal Myoview, Reduced ejection fraction with regional wall motion abnormality ejection fraction 45% Informed consent was obtained prior to the procedure. COMPLICATIONS None Estimated Blood Loss: Less than 10 mls TECHNIQUE One percent lidocaine used to anesthetize the right anterior aspect of the wrist. The right radial artery was accessed via the Seldinger technique. A 6 [place] sheath was placed in the right radial artery. 2.5 mg of Verapamil, 800 mcg of nitroglycerin, 1mg Lidocaine and 5000 U Heparin were given through the arterial sheath. The papa catheter was also used to perform left heart catheterization, left ventriculogram and selective coronary angiogram. At the end the diagnostic angiogram therapeutic heparin was administered giving a therapeutic ACT and the guide catheter was placed in left main artery followed by Choice PT extra-support wire being placed on the LAD. A 3 mm x 18 mm [place] frontier stent was deployed at 20 bre reducing the severe mid LAD stenosis to 0%. NIYAH II flow was present at the beginning of the procedure with NIYAH-3 flow at the end of the procedure. Following this the apparatus was removed and placed in the right coronary artery where the same wire was placed distally. A 3.5 x 34 mm [place] frontier stent was deployed at 20 rbe reducing the stenosis. A 4 mm x 12 mm noncompliant balloon was deployed in the mid and proximal portion of the stent at 20 bre to further post dilate. NIYAH-3 flow was present before and after the procedure. At the end the procedure the apparatus was removed the sheath was removed and hemostasis was achieved using TR banding patient was transferred to the postop holding in stable condition ANGIOGRAPHIC RESULTS The left main artery Normal The left anterior descending artery Has proximal 10% stenosis followed by a stent in the proximal segment which is widely patent free of in-stent restenosis. The midportion has a focal 90% concentric stenosis. The remaining LAD has 40% distal stenoses with additional 50% stenoses as the LAD wraps the apex The circumflex artery Is a large-caliber co-dominant vessel with a stent in the proximal to mid segment which is widely patent with mild in-stent restenosis. The right coronary artery Is codominant and has a 70% mid vessel stenosis followed by a hazy 40 to 50% stenosis followed by distal 40 to 50% stenoses. The KHAN ventriculogram reveals Mild left ventricular dilatation ejection fraction 45% The left ventricular end-diastolic pressure 15 mmHg IMPRESSION Severe two-vessel coronary disease as described above with successful stenting of the mid LAD reducing the severe to critical stenosis to 0% with 1 drug-eluting stent Successful drug-eluting stent to the proximal to mid codominant right coronary artery severe disease reduced to 0% with 1 drug-eluting stent Left ventricular dilatation with mildly reduced ejection fraction Normal borderline LVEDP PLAN 1. Dual antiplatelet therapy 2. Recommend sleep study 3. Aggressive risk factor modification 4. LDL less than 55 to be achieved with high intensity statin 5. Cardiac rehabilitation 6. Avoidance of tobacco products Electronically signed by : Humberto Marie MD 02/23/2023 10:41:10
[2023-02-23 08:33] LABS: Basophils # 0.1 K/mm3 (0-0.2); Basophils % 0.8 % (0.1-2.0); Eosinophils # 0.2 K/mm3 (0.0-0.4); Eosinophils % 1.9 % (0.1-12.0); Hemoglobin 17.3 g/dL (14.1-18.0); Lymphocytes % 27.4 % (10-50); Mean Corpuscular HGB Conc 31.5 g/dL (31.8-35.4); Mean Corpuscular Volume 95.2 fl (80-94); Mean Platelet Volume 8.7 fl (7.4-10.4); Monocytes # 0.6 K/mm3 (0.1-1.0); Monocytes % 5.8 % (1.7-9.3); Neutrophils # 7.1 K/mm3 (1.8-7.8); Neutrophils % 64.1 % (37.0-80.0); Platelet Count 230 K/mm3 (142-424); Red Blood Count 5.78 M/mm3 (4.60-6.20); Red Cell Distribution Width 13.7 % (11.5-17.5)
[2023-02-23 09:01] LABS: Chloride 104 mmol/L (98-107); Potassium 4.5 mmoL/L (3.5-5.1); Sodium 138 mmol/L (136-145)
[2023-02-23 09:04] LABS: Anion Gap 14.5 mEq/L (5-15); Blood Urea Nitrogen 18 mg/dl (9-20); Calcium 9.7 mg/dl (8.4-10.2); Carbon Dioxide 24 mmol/L (22.0-30.0); Creatinine Clearance Estimated 154 mL/min (50-200); Estimated Glomerular Filt Rate 78 ml/min (>60); GFR (African American) 94 ML/MIN (>60); Glucose 203 mg/dl (74-100)
[2023-02-23 11:19] LABS: CATHL Activated Clotting Time > 400 SEC (74-125)
--- NOTE | 2023-02-23 14:06 | HMH.PHACL ---
PHA Teachers Assistant Discharge Med Laminate Floor Installer: Humberto Goodman has received discharge medication counseling on the following medications: ASPIRIN PLAVIX VALSARTAN NADOLOL ATORVASTATIN PATIENT ALREADY TAKING ALL REQUIRED MEDICATIONS. ONLY NEEDS TO HOLD METFORMIN FOR 48 HOURS D/T CONTRAST. PATIENT VERBALIZED UNDERSTANDING AND HAD NO QUESTIONS AT THIS TIME. -GOSIA ALEMAN, PHARMD
== END 2023-02-23 14:11 | disposition home or self-care (01) ==
PROVIDERS: PCP Nurse Practitioner Family; Visit Provider Internal Medicine
DX: R07.9 Chest pain, unspecified (principal); E11.9 Type 2 diabetes mellitus without complications; Z79.4 Long term (current) use of insulin; Z79.01 Long term (current) use of anticoagulants; I25.118 Atherosclerotic heart disease of native coronary artery with other forms of angina pectoris; I11.0 Hypertensive heart disease with heart failure; I50.32 Chronic diastolic (congestive) heart failure; I42.1 Obstructive hypertrophic cardiomyopathy; F17.210 Nicotine dependence, cigarettes, uncomplicated; E11.65 Type 2 diabetes mellitus with hyperglycemia; Z79.899 Other long term (current) drug therapy
CPT/HCPCS: 80048; 85025; 85347; 92928; 93458; 99152; 99153; C1725; C1760; C1769; C1876; C9600; J1644; Q9967

== ENCOUNTER → 2023-03-10 15:11 | Outpatient (CLI) | payer OTHER, SELFPAY ==
--- NOTE | 2023-03-10 15:11 | CT_ITS ---
FINAL REPORT TECHNIQUE: Axial imaging of the chest was obtained without contrast. Reformatted images were also obtained and reviewed.This study was performed with techniques to keep radiation doses as low as reasonably achievable, (ALARA). Individualized dose reduction technique using automated exposure control or adjustment of mA and/or kV according to the patient's size were employed. CLINICAL HISTORY: 3 month f/u COMPARISON: 12/08/2022 FINDINGS: There is stable anterior mediastinal adenopathy measuring 16 mm. Other enlarged mediastinal lymph nodes and right hilar adenopathy are also stable. Heart size is normal. There is no pericardial or pleural effusion. Again seen is mild emphysema and mild scarring. No suspicious infiltrate or nodule is identified on lung window images. Limited imaging of the upper abdomen demonstrates heterogeneous appearance of the liver of uncertain significance. Hepatic masses not excluded. IMPRESSION: Stable, nonspecific mediastinal and hilar adenopathy which may be reactive or neoplastic. Heterogeneous appearance of the liver of uncertain significance. Hepatic mass is not excluded. Recommend liver mass protocol MRI for further evaluation. Reviewed, Interpreted and Dictated by Pedro Figueroa III, MD Transcribed by Iris Medina Authenticated and [facility][1]
== END ==
PROVIDERS: PCP Nurse Practitioner Family; Visit Provider Internal Medicine Pulmonary Disease
DX: R91.1 Solitary pulmonary nodule (principal); R59.0 Localized enlarged lymph nodes
CPT/HCPCS: 71250

== ENCOUNTER → 2023-03-14 12:10 | Outpatient (CLI) | payer OTHER, SELFPAY ==
[2023-03-14 14:27] LABS: Chloride 101 mmol/L (98-107); Potassium 4.8 mmoL/L (3.5-5.1); Sodium 138 mmol/L (136-145)
[2023-03-14 14:29] LABS: Blood Urea Nitrogen 15 mg/dl (9-20); Estimated Glomerular Filt Rate 88 ml/min (>60); GFR (African American) 106 ML/MIN (>60)
[2023-03-14 14:30] LABS: Alanine Aminotransferase 28 U/L (12-78); Albumin Level 4.1 g/dl (3.5-5.0); Albumin/Globulin Ratio 1.3 (1.1-1.8); Alkaline Phosphatase 65 U/L (38-126); Anion Gap 14.8 mEq/L (5-15); Aspartate Amino Transferase 26 U/L (17-59); Bilirubin,Total 0.3 mg/dl (0.2-1.3); Carbon Dioxide 27 mmol/L (22.0-30.0); Globulin 3.1 g/dL (1.3-3.2); Glucose 182 mg/dl (74-100); Total Protein,Serum 7.2 g/dl (6.3-8.2)
[2023-03-14 14:31] LABS: Calcium 9.1 mg/dl (8.4-10.2)
[2023-03-16 16:38] LABS: C-Reactive Protein 29.1 mg/L (0-4)
[2023-03-19 16:09] LABS: Aspergillus flavus Negative (Neg:<1:1); Aspergillus fumigatus Negative (Neg:<1:1); Aspergillus niger Negative (Neg:<1:1); Blastomyces Antibody Negative (Neg:<1:1); Histoplasma Antibody Quant Negative (Neg:<1:1)
== END ==
PROVIDERS: PCP Nurse Practitioner Family; Visit Provider Internal Medicine Pulmonary Disease
DX: J84.10 Pulmonary fibrosis, unspecified (principal); R91.1 Solitary pulmonary nodule; J84.9 Interstitial pulmonary disease, unspecified; R06.09 Other forms of dyspnea; Z72.0 Tobacco use
CPT/HCPCS: 36415; 80053; 86140; 86606; 86612; 86698

== ENCOUNTER 2023-03-15 13:59 | Outpatient (RCR) | payer OTHER, SELFPAY | END 2023-06-09 15:00 | disposition home or self-care (01) | LOC: PT 13:59 | PROVIDERS: Visit Provider Internal Medicine | DX: I25.10 Atherosclerotic heart disease of native coronary artery without angina pectoris (principal); Z95.5 Presence of coronary angioplasty implant and graft | CPT/HCPCS: 93798 ==

== ENCOUNTER → 2023-04-27 09:48 | Outpatient (CLI) | payer OTHER, SELFPAY ==
[2023-04-27 10:30] VITALS: PULSE 79; PULSE 81
== END ==
PROVIDERS: PCP Nurse Practitioner Family; Visit Provider Internal Medicine Pulmonary Disease
DX: R06.09 Other forms of dyspnea (principal)
CPT/HCPCS: 94060; 94618; 94640; 94727; 94729

== ENCOUNTER 2023-06-12 06:23 | Emergency (ER) | payer OTHER, SELFPAY ==
[2023-06-12] VITALS (11 sets, daily range): BP systolic 127–165; BP diastolic 82–112; PULSE 80–94; RESP 14–24; TEMP 36.2–36.7; O2SAT 90–96; BMI 33.7
--- NOTE | 2023-06-12 06:24 | ECG_ITS ---
APPROVED REPORT Exam: Resting ECG HR:86 bpm ECG Measurements Heart Rate 86 AXES TN 193 P 62 QRSd 96 QRS -38 QT 362 T 48 QTc 406 Conclusion SINUS RHYTHM LEFT ATRIAL Abnormality [-0.1mV P-WAVE IN V1/V2] LEFT AXIS DEVIATION [QRS AXIS < -30] ABNORMAL ECG UNCONFIRMED REPORT Electronically signed by : Pierce Davis MD 06/12/2023 08:22:17
--- NOTE | 2023-06-12 06:32 | XR_ITS ---
PROCEDURE INFORMATION: Exam: XR Chest Exam date and time: 06/12/2023 6:38 AM Age: 52 years old Clinical indication: Pain; Other: Cp; Additional info: Chest pain TECHNIQUE: Imaging protocol: Radiologic exam of the chest. Views: 1 view. COMPARISON: CT CHEST WO CON 03/10/2023 3:27 PM FINDINGS: Lungs: Lungs are well aerated without a focal area of consolidation. Pleural spaces: Unremarkable. No pleural effusion. No pneumothorax. Heart/Mediastinum: Unremarkable. No cardiomegaly. Bones/joints: Unremarkable. IMPRESSION: Lungs are well aerated without a focal area of consolidation.
--- NOTE | 2023-06-12 06:35 | [facility].EDCP ---
Discharge Plan Disposition Patient Disposition: Home, Self-Care Prescriptions Prescriptions: New nitroglycerin 0.4 mg tablet, sublingual 0.4 mg sublingual Q5M PRN (Reason: chest pain) Qty: 30 0RF Rx Instructions: do not exceed 3 doses per episode No Action isosorbide mononitrate 30 mg tablet extended release 24 hr 30 mg PO DAILY Qty: 30 2RF ranolazine 500 mg tablet extended release 12 hr 500 mg PO BID Qty: 60 2RF hydroxyzine pamoate [Vistaril] 25 mg capsule 25 mg PO HS PRN (Reason: Insomnia, anxiety) Rx Instructions: 25 or 50 mg p.o. nightly have an hour before bedtime Jardiance 10 mg tablet 10 mg PO DAILY Patient Comments: TAKE 1 TABLET BY MOUTH ONCE DAILY IN THE MORNING Ozempic 1 mg/dose (4 mg/3 mL) pen injector 1 mg SQ WEEKLY Patient Comments: INJECT 1MG SUBCUTANEOUSLY ONCE A WEEK albuterol sulfate 90 mcg/actuation HFA aerosol inhaler 2 puff inhalation QID PRN (Reason: shortness of breath or wheezing) 90 Days Qty: 8.5 3RF Stiolto Respimat 2.5-2.5 mcg/actuation mist 2 puff inhalation DAILY 90 Days Qty: 4 2RF valsartan 320 mg tablet 320 mg PO DAILY Qty: 90 1RF clopidogrel [Plavix] 75 mg tablet 75 mg PO DAILY Qty: 90 1RF nadolol 80 mg tablet 80 mg PO BID aspirin 81 MG tablet,delayed release (DR/EC) 81 mg PO DAILY metformin 1,000 MG tablet 1,000 mg PO BID Hold Instructions: Resume on 02/26/23. digoxin 125 mcg (0.125 mg) tablet See Rx Instructions .ROUTE .COMPLEX Rx Instructions: Take 1 tablet by mouth once daily Referrals Follow up/Referrals: Provider,Referral, MD [Referring] - See instructions Activity Restrictions/Add. Instructions Additional Instructions/Restrictions: Follow-up with cardiology, let them know you are here. Talk to them about your digoxin and possibly increasing dose, given undetectable level here in the emergency department. Also talk to them about other medication adjustments, as we discussed. Nitroglycerin added today, if you have chest pain that does not get better with rest, or aspirin after 5 or 10 minutes, try nitroglycerin if blood pressure is high. You can take 1 nitroglycerin every 5 minutes for a total of 3 doses. If you have continued pain, or any other concerning signs or symptoms, return to the emergency department for further evaluation. Clinical Impressions Clinical Impression: Chest pain Qualifiers: Chest pain type: unspecified Qualified Code(s): R07.9 - Chest pain, unspecified Discharge ED Provider: Jayy Barkley HPI <Eitan Carlisle MD - Last Filed: 06/12/23 06:55> General Chief Complaint: Chest Pain Stated Complaint: CP Time Seen by Provider: 06/12/23 06:34 Mode of Arrival: Family Vehicle Source of Information: Patient Limitations: No Limitations Description of Symptoms (Recalled from ER Triage Doc. by RN): 52 YO MALE PRESENTS WITH ONGOING CHEST PAIN FOR THE LAST 24 HOURS THAT ORIGINATED IN HIS LEFT SHOULDER AND RADIATED DOWN THROUGH THE MIDSTERNAL AREA. STATES HE HAS A PREVIOUS H/O WI, AND FOLLOWS WITH DR GUDINO (CARDS @[facility]). PT STATES HE WAS A LITTLE SHORT-WINDED EARLIER WITH THE PAIN, BUT HAS MOSTLY RESOLVED. DENIES COUGH/CONGESTION/NASAL DRAINAGE. REPORTS NAUSEA PRIOR TO ARRIVAL, NOW RESOLVED. DENIES VOMITING/DIARRHEA. DENIES CHANGE IN NORMAL UOP. NO REPORTED EDEMA. PMH: HTN,DM,PREVIOUS CARDIAC-RELATED ISSUES. AFEBRILE. A&OX 4 AT TIME OF TRIAGE. History of Present Illness HPI narrative: This 52-year-old male with a history of prior WI, multiple stents, on daily digoxin presents to the ER with concerns of chest pain for over 24 hours that started in his left shoulder and radiates through the midsternal area. He also had mild headache associated with the chest pain. Patient states he had mild shortness of breath earlier when he had pain, however once he decided to come to the ER he states his symptoms resolved. He also endorsed mild nausea prior to coming to the ER but is not having any nausea at this time. His pain is also resolved and he has no persistent headache. Review of systems otherwise negative. Related Data Home Medications Medication Instructions Recorded Confirmed hydroxyzine pamoate 25 mg capsule 25 mg PO HS PRN Insomnia, anxiety 12/05/22 06/12/23 (Vistaril) empagliflozin 10 mg tablet 10 mg PO DAILY Diabetes 02/14/23 06/12/23 (Jardiance) semaglutide 1 mg/dose (4 mg/3 mL) 1 mg SQ WEEKLY Diabetes 02/14/23 06/12/23 subcutaneous pen injector (Ozempic) aspirin 81 mg tablet,delayed 81 mg PO DAILY DAPT 02/23/23 06/12/23 release digoxin 125 mcg (0.125 mg) tablet See Rx Instructions .Route 02/23/23 06/12/23 .COMPLEX heart rate metformin 1,000 mg tablet 1,000 mg PO BID Diabetes 02/23/23 06/12/23 nadolol 80 mg tablet 80 mg PO BID htn 02/23/23 06/12/23 Previous Rx's Medication Instructions Recorded isosorbide mononitrate 30 mg 30 mg PO DAILY #30 tabs 03/06/23 tablet,extended release 24 hr ranolazine 500 mg tablet,extended 500 mg PO BID #60 tabs 03/06/23 release,12 hr clopidogrel 75 mg tablet (Plavix) 75 mg PO DAILY DAPT #90 tabs 04/06/23 valsartan 320 mg tablet 320 mg PO DAILY htn #90 tabs 04/06/23 albuterol sulfate 90 mcg/actuation 2 puff inhalation QID PRN 04/27/23 aerosol inhaler shortness of breath or wheezing 90 days #8.5 grams tiotropium 2.5 mcg-olodaterol 2.5 2 puff inhalation DAILY 90 days #4 04/27/23 mcg/actuation mist for inhalation grams (Stiolto Respimat) nitroglycerin 0.4 mg sublingual 0.4 mg sublingual Q5M PRN chest 06/12/23 tablet pain #30 tabs Allergies Allergy/AdvReac Type Severity Reaction Status Date / Time No Known Allergies Allergy Verified 04/27/23 11:23 [facility] <Eitan Carlisle MD - Last Filed: 06/12/23 06:55> [facility] Disclaimer: The information contained in this section may have been updated after the patient was seen, as this information can be updated by other users. Medical History (Updated 06/12/23 @ 10:39 by Jayy Barkley MD) Angina pectoris Anxiety disorder CAD (coronary artery disease) Cardiomyopathy, ischemic Congestive heart failure with LV diastolic dysfunction, NYHA class 3 COPD mixed type Diabetes Diastolic CHF, chronic Dyspnea Dyspnea on exertion Encounter for screening for malignant neoplasm of lung Hilar lymphadenopathy HLD (hyperlipidemia) HTN (hypertension) Mediastinal lymphadenopathy Non-STEMI (non-ST elevated myocardial infarction) PRIYA (obstructive sleep apnea) Restless sleeper Right bundle branch block (RBBB) determined by electrocardiography Smoking greater than 30 pack years Systolic congestive heart failure Type 2 diabetes mellitus with hyperglycemia Surgical History History of heart artery stent History of surgery on upper extremity Family History Other Diabetes Social History Smoking Status: Unknown if ever smoked alcohol intake: never substance use type: denies use current occupational status: disabled Travel in the last 8 weeks: None household members: significant other housing: house marital status: single current occupation: [employer] current occupational exposures/hazards: No <Eitan Carlisle MD - Last Filed: 06/12/23 06:55> ROS Obtained: Yes All systems reviewed & no additional complaints except as documented Constitutional Constitutional: Denies chills, Denies fever(s), Reports headache(s) and Denies weakness Eyes Eyes: Denies change in vision ENT Ears, Nose, Mouth, and Throat: Denies dizziness, Reports headache(s), Denies nasal congestion and Denies sore throat Cardiovascular Cardiovascular: Reports chest pain, Reports dyspnea and Denies leg edema Respiratory Respiratory: Denies cough and Reports dyspnea Gastrointestinal Gastrointestingal: Reports nausea; Denies constipation, diarrhea or vomiting Genitourinary Male Genitourinary: Denies difficulty urinating Musculoskeletal Musculoskeletal: Denies arthralgias, Denies myalgias, Denies numbness and Reports tingling (Radiating down left arm, now resolved) Integumentary/Breasts Skin/Breast: Denies change in pigmentation Neurologic Neurologic: Denies dizziness, Reports headache(s), Denies numbness, Reports tingling (Radiating down left arm, now resolved) and Denies weakness Physical Exam <Eitan Carlisle MD - Last Filed: 06/12/23 06:55> General General appearance: alert and in no apparent distress Head Head exam: atraumatic and normocephalic Eye Eye exam: Present PERRL and EOMI ENT ENT exam: Present mucous membranes moist Neck Neck exam: Present normal inspection and full ROM Chest Chest inspection: Present symmetric chest wall rise; Absent tenderness Respiratory Respiratory exam: Present normal lung sounds bilaterally; Absent respiratory distress, wheezes or stridor Cardiovascular Cardiovascular exam: Present regular rate and normal rhythm Abdominal Exam Abdominal exam: Present soft; Absent distention or tenderness Extremities Exam Extremities exam: Present full ROM Neurological Exam Neurological exam: Present alert, oriented X3, CN II-XII intact and normal gait; Absent motor sensory deficit Psychiatric Psychiatric exam: Present normal affect and normal mood Skin Skin exam: Present warm and dry HEART Score <Eitan Carlisle MD - Last Filed: 06/12/23 06:55> HEART Score HEART Score assessment performed?: No Critical Care <Eitan Carlisle MD - Last Filed: 06/12/23 06:55> Critical Care Time Critical Care Time: No Medical Decision Making <Eitan Carlisle MD - Last Filed: 06/12/23 06:55> Medical Records Medical records reviewed: Yes I reviewed the patient's medical records. MR Comment: I reviewed most recent cardiac cath report which demonstrated two-vessel CAD with stenting of the mid LAD and right coronary. Patient also had left ventricular dilatation with mildly reduced EF. Plan at that time was dual antiplatelet, sleep study, risk factor modification, LDL management, cardiac rehab, avoiding tobacco products. [place] Inquiry Pt receiving controlled substance: No Vital Signs Vital Signs: 06/12/23 06:25 06/12/23 06:30 06/12/23 07:00 Temperature 97.1 F L Temperature Source Oral Pulse Rate 84 87 Pulse Rate [Right Brachial] 94 H Respiratory Rate 24 Blood Pressure 165/97 H 133/82 Blood Pressure [Right Arm] 163/112 H Blood Pressure Mean 125 99 Blood Pressure Mean [Right Arm] 129 Blood Pressure Source Blood Pressure Source [Right Arm] Automatic Cuff Blood Pressure Position Blood Pressure Position [Right Arm] Sitting 02 Sat by Pulse Oximetry 96 96 95 Oxygen Delivery Method Room Air 06/12/23 07:30 06/12/23 08:00 06/12/23 08:30 Temperature Temperature Source Pulse Rate 89 87 86 Pulse Rate [Right Brachial] Respiratory Rate 21 20 20 Blood Pressure 138/83 144/86 H 144/86 H Blood Pressure [Right Arm] Blood Pressure Mean Blood Pressure Mean [Right Arm] Blood Pressure Source Blood Pressure Source [Right Arm] Blood Pressure Position Blood Pressure Position [Right Arm] 02 Sat by Pulse Oximetry 91 L 90 L 90 L Oxygen Delivery Method 06/12/23 09:00 06/12/23 09:30 06/12/23 10:00 Temperature Temperature Source Pulse Rate 81 81 83 Pulse Rate [Right Brachial] Respiratory Rate 20 20 20 Blood Pressure 140/82 152/93 H 146/92 H Blood Pressure [Right Arm] Blood Pressure Mean 112 Blood Pressure Mean [Right Arm] Blood Pressure Source Blood Pressure Source [Right Arm] Blood Pressure Position Blood Pressure Position [Right Arm] 02 Sat by Pulse Oximetry 94 L 90 L 92 L Oxygen Delivery Method 06/12/23 10:30 06/12/23 10:52 Temperature 98.0 F Temperature Source Oral Pulse Rate 80 85 Pulse Rate [Right Brachial] Respiratory Rate 14 18 Blood Pressure 127/85 127/85 Blood Pressure [Right Arm] Blood Pressure Mean Blood Pressure Mean [Right Arm] Blood Pressure Source Automatic Cuff Blood Pressure Source [Right Arm] Blood Pressure Position Sitting Blood Pressure Position [Right Arm] 02 Sat by Pulse Oximetry 92 L Oxygen Delivery Method Room Air Lab Data Labs: Lab Results 06/12/23 06:27: WBC 11.5 H, RBC 5.77, Hgb 17.5, Hct 53.5 H, MCV 92.6, MCH 30.2, MCHC 32.7, RDW 14.6, Plt Count 192, MPV 8.9, Neut % (Auto) 66.5, Lymph % (Auto) 23.8, Andrew % (Auto) 6.7, Eos % (Auto) 2.1, Baso % (Auto) 0.9, Neut # (Auto) 7.6, Lymph # (Auto) 2.7, Andrew # (Auto) 0.8, Eos # (Auto) 0.2, Baso # (Auto) 0.1, Sodium 134 L, Potassium 4.3, Chloride 101, Carbon Dioxide 26, Anion Gap 11.3, BUN 15, Creatinine 0.80, Estimated Creat Clear 193, Estimated GFR 101, Est GFR ( Amer) 122, Glucose 175 H, Calcium 9.2, Total Bilirubin 0.6, AST 33, ALT 29, Alkaline Phosphatase 64, Troponin I < 0.01, NT-Pro-B Natriuret Pep 267 H, Total Protein 8.0, Albumin 4.5, Globulin 3.5 H, Albumin/Globulin Ratio 1.3, Digoxin < 0.40 06/12/23 09:38: Troponin I < 0.01 06/12/23 06:27 06/12/23 06:27 Response Orders (Tests/Meds): ED MEDICATIONS Discontinued Medications Generic Name Dose Route Start Last Admin Trade Name Shefali PRN Reason Stop Dose Admin Aspirin 162 mg 06/12/23 07:58 06/12/23 08:18 Aspirin 81mg Chewable Tablet PO 06/12/23 07:59 162 mg ONCE ONE Administration ORDERS Category Date Time Status Chest XR -- portable [XR chest portable] Stat Exams 06/12/23 06:32 Completed Brain Natriuretic Peptide Stat Lab 06/12/23 06:27 Completed Complete Blood Count Auto Diff Stat Lab 06/12/23 06:27 Completed Comprehensive Metabolic Panel Stat Lab 06/12/23 06:27 Completed Digoxin Stat Lab 06/12/23 06:27 Completed Troponin I Q3H Lab 06/12/23 09:38 Completed Troponin I Stat Lab 06/12/23 06:27 Completed ECG initial Besson Routine Y 06/12/23 06:24 Completed MDM Narrative Medical Decision Narrative: In summary, this 52year old male presents to the emergency department today with chest pain. On initial evaluation patient is hemodynamically stable, afebrile, resting comfortably, completely asymptomatic at this time. Physical exam is reassuring and benign at this time. Differential diagnosis includes but is not limited to ACS, pneumothorax, electrolyte abnormality, arrhythmia, I considered PE but have extremely low suspicion for this given patient does not have any risk factors, is not tachycardic or hypotensive, and does not have hypoxia. He also does not have any findings on physical exam consistent with DVT such as leg swelling. Based on these concerns, I ordered cardiac workup including EKG, chest x-ray, cardiac enzymes. Patient also does take digoxin which increases the risk of digoxin toxicity, random digoxin level was ordered. ECG personally interpreted demonstrates normal sinus rhythm, rate 86, left axis deviation, no interval abnormalities, no STEMI, compared to prior ECG performed in November 2022 today's ECG is stable without acute changes. Patient is asymptomatic at the time of presentation to the ER and is hemodynamically stable. He does not require medications at this time. Labs personally reviewed demonstrate CBC with mild leukocytosis, WBC 11.5, no anemia. CMP demonstrates trace hyponatremia with sodium 134, nonactionable, potassium and chloride normal, BUN and creatinine 15, 0.80 respectively. No transaminitis. Additional labs pending at the time of physician shift change. XR personally interpreted demonstrates no pneumothorax, no lobar consolidation, compared to chest x-ray from November 2022 patient has slight right perihilar changes, nonspecific and do not correlate clinically at this time. Radiology read pending. On reassessment patient remains stable with additional cardiac workup pending. Patient handed off to Dr. Barkley at physician shift change for further management and disposition. <Jayy Barkley MD - Last Filed: 06/12/23 13:32> Vital Signs Vital Signs: 06/12/23 06:25 06/12/23 06:30 06/12/23 07:00 Temperature 97.1 F L Temperature Source Oral Pulse Rate 84 87 Pulse Rate [Right Brachial] 94 H Respiratory Rate 24 Blood Pressure 165/97 H 133/82 Blood Pressure [Right Arm] 163/112 H Blood Pressure Mean 125 99 Blood Pressure Mean [Right Arm] 129 Blood Pressure Source Blood Pressure Source [Right Arm] Automatic Cuff Blood Pressure Position Blood Pressure Position [Right Arm] Sitting 02 Sat by Pulse Oximetry 96 96 95 Oxygen Delivery Method Room Air 06/12/23 07:30 06/12/23 08:00 06/12/23 08:30 Temperature Temperature Source Pulse Rate 89 87 86 Pulse Rate [Right Brachial] Respiratory Rate 21 20 20 Blood Pressure 138/83 144/86 H 144/86 H Blood Pressure [Right Arm] Blood Pressure Mean Blood Pressure Mean [Right Arm] Blood Pressure Source Blood Pressure Source [Right Arm] Blood Pressure Position Blood Pressure Position [Right Arm] 02 Sat by Pulse Oximetry 91 L 90 L 90 L Oxygen Delivery Method 06/12/23 09:00 06/12/23 09:30 06/12/23 10:00 Temperature Temperature Source Pulse Rate 81 81 83 Pulse Rate [Right Brachial] Respiratory Rate 20 20 20 Blood Pressure 140/82 152/93 H 146/92 H Blood Pressure [Right Arm] Blood Pressure Mean 112 Blood Pressure Mean [Right Arm] Blood Pressure Source Blood Pressure Source [Right Arm] Blood Pressure Position Blood Pressure Position [Right Arm] 02 Sat by Pulse Oximetry 94 L 90 L 92 L Oxygen Delivery Method 06/12/23 10:30 06/12/23 10:52 Temperature 98.0 F Temperature Source Oral Pulse Rate 80 85 Pulse Rate [Right Brachial] Respiratory Rate 14 18 Blood Pressure 127/85 127/85 Blood Pressure [Right Arm] Blood Pressure Mean Blood Pressure Mean [Right Arm] Blood Pressure Source Automatic Cuff Blood Pressure Source [Right Arm] Blood Pressure Position Sitting Blood Pressure Position [Right Arm] 02 Sat by Pulse Oximetry 92 L Oxygen Delivery Method Room Air Lab Data Labs: Lab Results 06/12/23 06:27: WBC 11.5 H, RBC 5.77, Hgb 17.5, Hct 53.5 H, MCV 92.6, MCH 30.2, MCHC 32.7, RDW 14.6, Plt Count 192, MPV 8.9, Neut % (Auto) 66.5, Lymph % (Auto) 23.8, Andrew % (Auto) 6.7, Eos % (Auto) 2.1, Baso % (Auto) 0.9, Neut # (Auto) 7.6, Lymph # (Auto) 2.7, Andrew # (Auto) 0.8, Eos # (Auto) 0.2, Baso # (Auto) 0.1, Sodium 134 L, Potassium 4.3, Chloride 101, Carbon Dioxide 26, Anion Gap 11.3, BUN 15, Creatinine 0.80, Estimated Creat Clear 193, Estimated GFR 101, Est GFR ( Amer) 122, Glucose 175 H, Calcium 9.2, Total Bilirubin 0.6, AST 33, ALT 29, Alkaline Phosphatase 64, Troponin I < 0.01, NT-Pro-B Natriuret Pep 267 H, Total Protein 8.0, Albumin 4.5, Globulin 3.5 H, Albumin/Globulin Ratio 1.3, Digoxin < 0.40 06/12/23 09:38: Troponin I < 0.01 Response Orders (Tests/Meds): ED MEDICATIONS Discontinued Medications Generic Name Dose Route Start Last Admin Trade Name Freq PRN Reason Stop Dose Admin Aspirin 162 mg 06/12/23 07:58 06/12/23 08:18 Aspirin 81mg Chewable Tablet PO 06/12/23 07:59 162 mg ONCE ONE Administration ORDERS Category Date Time Status Chest XR -- portable [XR chest portable] Stat Exams 06/12/23 06:32 Completed Brain Natriuretic Peptide Stat Lab 06/12/23 06:27 Completed Complete Blood Count Auto Diff Stat Lab 06/12/23 06:27 Completed Comprehensive Metabolic Panel Stat Lab 06/12/23 06:27 Completed Digoxin Stat Lab 06/12/23 06:27 Completed Troponin I Q3H Lab 06/12/23 09:38 Completed Troponin I Stat Lab 06/12/23 06:27 Completed ECG initial [place] Routine Y 06/12/23 06:24 Completed MDM Narrative Medical Decision Narrative: In summary, this 52year old male presents to the emergency department today with chest pain. On initial evaluation patient is hemodynamically stable, afebrile, resting comfortably, completely asymptomatic at this time. Physical exam is reassuring and benign at this time. Differential diagnosis includes but is not limited to ACS, pneumothorax, electrolyte abnormality, arrhythmia, I considered PE but have extremely low suspicion for this given patient does not have any risk factors, is not tachycardic or hypotensive, and does not have hypoxia. He also does not have any findings on physical exam consistent with DVT such as leg swelling. Based on these concerns, I ordered cardiac workup including EKG, chest x-ray, cardiac enzymes. Patient also does take digoxin which increases the risk of digoxin toxicity, random digoxin level was ordered. ECG personally interpreted demonstrates normal sinus rhythm, rate 86, left axis deviation, no interval abnormalities, no STEMI, compared to prior ECG performed in November 2022 today's ECG is stable without acute changes. Patient is asymptomatic at the time of presentation to the ER and is hemodynamically stable. He does not require medications at this time. Labs personally reviewed demonstrate CBC with mild leukocytosis, WBC 11.5, no anemia. CMP demonstrates trace hyponatremia with sodium 134, nonactionable, potassium and chloride normal, BUN and creatinine 15, 0.80 respectively. No transaminitis. Additional labs pending at the time of physician shift change. XR personally interpreted demonstrates no pneumothorax, no lobar consolidation, compared to chest x-ray from November 2022 patient has slight right perihilar changes, nonspecific and do not correlate clinically at this time. Radiology read pending. On reassessment patient remains stable with additional cardiac workup pending. Patient handed off to Dr. Barkley at physician shift change for further management and disposition. Filippo: I assume primary responsibility for this patient after signout from previous physician. On my initial evaluation, patient resting comfortably in bed. Nonactionable CBC or chemistry. Patient mildly hyperglycemic, but this appears to be normal for him. Initial troponin negative. Digoxin level less than 0.4, so likely subtherapeutic. Patient was placed in observation beginning at 7 AM in order to obtain serial troponins and determine need for admission versus home-going. The patient was provided repeat evaluations, cardiac monitoring while awaiting results. Independent interpretation of results demonstrated negative delta troponin and negative BNP. On reevaluation, patient resting comfortably. At this time, I feel patient is appropriate for because patient at baseline without signs or symptoms of clinical decompensation, deemed appropriate for discharge. Results were relayed to patient who voiced understanding and were agreeable to outpatient management and follow up. At the time of discharge the patient was hemodynamically stable, tolerating PO, and mobilizing appropriately.. Total observation time 3 hours and 30 minutes. Because patient at baseline without signs or symptoms of clinical decompensation, deemed appropriate for discharge. Results were relayed to patient who voiced understanding and were agreeable to outpatient management and follow up. At the time of discharge the patient was hemodynamically stable, tolerating PO, and mobilizing appropriately.
[2023-06-12 06:36] LABS: Basophils # 0.1 K/mm3 (0-0.2); Basophils % 0.9 % (0.1-2.0); Eosinophils # 0.2 K/mm3 (0.0-0.4); Eosinophils % 2.1 % (0.1-12.0); Hematocrit 53.5 % (42.0-52.0); Hemoglobin 17.5 g/dL (14.1-18.0); Lymphocytes # 2.7 K/mm3 (0.7-4.5); Lymphocytes % 23.8 % (10-50); Mean Corpuscular HGB Conc 32.7 g/dL (31.8-35.4); Mean Corpuscular Hemoglobin 30.2 pg (27.0-31.2); Mean Corpuscular Volume 92.6 fl (80-94); Mean Platelet Volume 8.9 fl (7.4-10.4); Monocytes # 0.8 K/mm3 (0.1-1.0); Monocytes % 6.7 % (1.7-9.3); Neutrophils # 7.6 K/mm3 (1.8-7.8); Neutrophils % 66.5 % (37.0-80.0); Platelet Count 192 K/mm3 (142-424); Red Blood Count 5.77 M/mm3 (4.60-6.20); Red Cell Distribution Width 14.6 % (11.5-17.5); White Blood Count 11.5 K/mm3 (4.8-10.8)
[2023-06-12 06:44] LABS: Alanine Aminotransferase 29 U/L (12-78); Alkaline Phosphatase 64 U/L (38-126); Aspartate Amino Transferase 33 U/L (17-59); Bilirubin,Total 0.6 mg/dl (0.2-1.3); Blood Urea Nitrogen 15 mg/dl (9-20); Carbon Dioxide 26 mmol/L (22.0-30.0); Chloride 101 mmol/L (98-107); Creatinine Clearance Estimated 193 mL/min (50-200); Estimated Glomerular Filt Rate 101 ml/min (>60); GFR (African American) 122 ML/MIN (>60)
[2023-06-12 06:45] LABS: Albumin Level 4.5 g/dl (3.5-5.0); Albumin/Globulin Ratio 1.3 (1.1-1.8); Anion Gap 11.3 mEq/L (5-15); Calcium 9.2 mg/dl (8.4-10.2); Globulin 3.5 g/dL (1.3-3.2); Glucose 175 mg/dl (74-100); Potassium 4.3 mmoL/L (3.5-5.1); Sodium 134 mmol/L (136-145)
--- NOTE | 2023-06-12 06:45 | PC.NURSE ---
radiology at bedside
[2023-06-12 06:57] LABS: Troponin I < 0.01 ng/ml (0.00-0.034)
[2023-06-12 07:17] LABS: Digoxin < 0.40 ng/ml (0.2-2.00)
--- NOTE | 2023-06-12 07:45 | PC.NURSE ---
dr beltran at bedside
[2023-06-12] MEDS: ASPIRIN 81MG CHEWABLE TABLET 162 MG PO (08:18)
--- NOTE | 2023-06-12 09:39 | PC.NURSE ---
Pt second trop sent to LAB
[2023-06-12 09:42] LABS: NT Pro Brain Natriuretic Pep. 267 pg/mL (0-125)
[2023-06-12 10:09] LABS: Troponin I < 0.01 ng/ml (0.00-0.034)
== END 2023-06-12 10:58 | disposition home or self-care (01) ==
PROVIDERS: Emergency Medicine; Emergency Provider Emergency Medicine; PCP Nurse Practitioner Family
DX: R07.9 Chest pain, unspecified (principal); M25.512 Pain in left shoulder; R51.9 Headache, unspecified; R06.02 Shortness of breath; R11.0 Nausea; I25.2 Old myocardial infarction; I25.118 Atherosclerotic heart disease of native coronary artery with other forms of angina pectoris; I25.5 Ischemic cardiomyopathy; I11.0 Hypertensive heart disease with heart failure; I50.42 Chronic combined systolic (congestive) and diastolic (congestive) heart failure; J44.9 Chronic obstructive pulmonary disease, unspecified; E11.9 Type 2 diabetes mellitus without complications; E78.5 Hyperlipidemia, unspecified; G47.33 Obstructive sleep apnea (adult) (pediatric)
CPT/HCPCS: 71045; 80053; 80162; 83880; 84484; 85025; 93005; 99285

== ENCOUNTER 2023-06-26 14:26 | Outpatient (CLI) | payer OTHER, SELFPAY ==
[2023-06-26 15:23] LABS: Chloride 98 mmol/L (98-107); Sodium 135 mmol/L (136-145)
[2023-06-26 15:24] LABS: Potassium 4.7 mmoL/L (3.5-5.1)
[2023-06-26 15:26] LABS: Anion Gap 16.7 mEq/L (5-15); Blood Urea Nitrogen 27 mg/dl (9-20); Carbon Dioxide 25 mmol/L (22.0-30.0); Estimated Glomerular Filt Rate 63 ml/min (>60); GFR (African American) 76 ML/MIN (>60); Total Protein,Serum 7.5 g/dl (6.3-8.2)
[2023-06-26 15:27] LABS: Calcium 9.4 mg/dl (8.4-10.2); Glucose 227 mg/dl (74-100)
[2023-06-27 12:34] LABS: Albumin 4.3 g/dL (2.9-4.4); Alpha-1-Globulin 0.2 g/dL (0.0-0.4); Immunoglobulin A, Qn 447 mg/dL (90-386); Immunoglobulin G, Qn 1003 mg/dL (603-1613); Immunoglobulin M, Qn 40 mg/dL (20-172); Protein, Total 7.8 g/dL (6.0-8.5)
[2023-06-28 10:18] LABS: Free Kappa Lt Chains 31.1; PDF SCANNED IMAGE
== END 2023-06-26 23:59 ==
PROVIDERS: PCP Nurse Practitioner Family; Visit Provider Nurse Practitioner
DX: E11.9 Type 2 diabetes mellitus without complications (principal); E78.5 Hyperlipidemia, unspecified; I11.0 Hypertensive heart disease with heart failure; I25.118 Atherosclerotic heart disease of native coronary artery with other forms of angina pectoris; I42.1 Obstructive hypertrophic cardiomyopathy; I50.32 Chronic diastolic (congestive) heart failure; Z79.84 Long term (current) use of oral hypoglycemic drugs; Z79.85 Long-term (current) use of injectable non-insulin antidiabetic drugs
CPT/HCPCS: 80048; 82784; 83883; 84155; 84165; 86334

== ENCOUNTER 2023-06-29 17:10 | Outpatient (CLI) | payer OTHER, SELFPAY ==
[2023-07-04 12:12] LABS: Albumin, U 48.3 % (.); Albumin, U 50.1 % (.); Alpha-1-Globulin, U 5.6 % (.); Alpha-1-Globulin, U 7.8 % (.); Alpha-2-Globulin, U 14.2 % (.); Alpha-2-Globulin, U 16.7 % (.); Beta Globulin, U 17.4 % (.); Beta Globulin, U 17.6 % (.); Gamma Globulin, U 14.2 % (.); M-Spike, % Not Observed % (Not Observed); Prot,24hr calculated 115 mg/24 hr (30-150); Protein,Total,Urine 4.8 mg/dL (Not Estab.)
[2023-07-05 09:15] LABS: PDF: SCANNED IMAGE
== END 2023-06-29 23:59 ==
LOC: LAB.DROPOF 17:13
PROVIDERS: Nurse Practitioner; PCP Nurse Practitioner Family; Visit Provider Nurse Practitioner Family
DX: E11.65 Type 2 diabetes mellitus with hyperglycemia (principal); E78.5 Hyperlipidemia, unspecified; I11.0 Hypertensive heart disease with heart failure; I25.118 Atherosclerotic heart disease of native coronary artery with other forms of angina pectoris; I42.1 Obstructive hypertrophic cardiomyopathy; I50.32 Chronic diastolic (congestive) heart failure; Z79.84 Long term (current) use of oral hypoglycemic drugs; Z79.85 Long-term (current) use of injectable non-insulin antidiabetic drugs
CPT/HCPCS: 84156; 84166; 86335

== ENCOUNTER 2023-07-11 12:59 | Outpatient (CLI) | payer OTHER, SELFPAY ==
--- NOTE | 2023-07-11 13:00 | MR_ITS ---
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 Software platform sequences were performed using the Siemens VaxCare MR B19 platform. A set of three-plane, low-resolution, large [id number] localizers were initially acquired. Then axial, coronal, sagittal TrueFISP, as well as axial HASTE images, were obtained. These were followed by gated TrueFISP breathold cinematic sequences obtained in the short axis with 8 mm slices and 2 mm gaps, 2-chamber (vertical long axis), 3-chamber, 4-chamber (horizontal long axis). A bolus of contrast was injected intravenously with first-pass sequences obtained in the short axis and four-chamber planes. After approximately 10 minutes, a TI crystal inspector sequence was performed to determine the optimal TI time. Using the optimized TI time, delayed contrast enhancement segmented inversion???recovery TurboFLASH sequences were obtained in the short axis, 2-chamber, 3-chamber, and 4-chamber projections. 2D-velocity phase mapping was performed. Functional parameters were calculated by offline analysis on an independent workstation ([employer], [employer]). Contrast: ProHance??? (Gadoteridol) FINDINGS MORPHOLOGY AND FUNCTION Left ventricle: The left ventricle is normal in size. The indexed left ventricular end-diastolic volume (LVEDVi) is 62 ml/m2 (reference range 57-105 ml/m2 in males, 56-96 ml/m2 in females). Normal left ventricular systolic function is present. There is asymmetric increase in left ventricular wall thickness, measuring up to 16.5 mm in the basal and mid-septal LV haley. There is mild hypokinesis of the inferior and inferoseptal LV haley. LVEF is calculated at 66.4% (reference range 57-77%). Right ventricle: The right ventricle is normal in size. The indexed right ventricular end-diastolic volume (RVEDVi) is 63 ml/m2 (reference range 61-121 ml/m2 in males, 48-112 ml/m2 in females). Normal right ventricular systolic function is present. RVEF is calculated at 53.5% (reference range 52-72% in males, 51-71% in females). Atria: The left atrium is normal in size. The maximum indexed left atrial volume is 24 ml/m2 (reference range 26-52 ml/m2 in males, 27-53 ml/m2 in females). The right atrium is normal in size. The maximum indexed right atrial volume is 18 ml/m2 (reference range 18-90 ml/m2). Aorta: The diameter of the aortic annulus is normal, measuring 24 mm (coronal view reference range 21-30 mm in males, 19-27 mm in females). The diameter of the aortic sinus is normal, measuring 42 mm (coronal view reference range 25-42 mm in males, 24-36 mm in females). The diameter of the sinotubular junction is normal, measuring 32 mm (coronal view reference range 18-32 mm in males, 18-28 mm in females). The diameters of the ascending and descending thoracic aorta are normal. Main pulmonary artery: The main pulmonary artery diameter is normal. Pericardium: The pericardial thickness is normal. The pericardial thickness measures 1.7 cm (normal < 4.0 cm). There is no pericardial effusion. VALVES The valvular morphologies in the visualized sequences appear normal. Mild mitral regurgitation is noted visually. The MR jet is eccentric and directed posteriorly. Systolic anterior motion of the mitral valve is not visualized. Ratio of pulmonary to systemic flow, Qp:Qs ratio = 1.0 (normal < or = 1.2), demonstrating no evidence of hemodynamically significant shunt. TISSUE CHARACTERIZATION Resting Perfusion: There is presence of resting hypoperfusion noted in the basal inferoseptal LV wall. Myocardial Fibrosis and/or edema: Abnormal gadolinium kinetics are present. There is a large region of subendocardial late gadolinium enhancement (LGE) present in the basal, mid, and distal septal and inferoseptal LV haley, consistent with presence of myocardial scarring. The pattern of LGE is most consistent with prior infarction in the respective region (likely LAD territory). The LGE occupies < 50% of the total myocardial thickness, suggestive of presence of viability. There is also minimal patchy LGE noted in the basal and mid septum. The patchy LGE burden occupies < 5% of the total myocardial thickness. OTHER No other significant findings are noted. However, this exam is focused on the cardiac structure and function. IMPRESSION Normal LV size with normal LV systolic function. LVEDVi= 62 ml/m2 and LVEF= 66.4%. Normal RV size with normal RV systolic function. RVEDVi= 63 ml/m2 and RVEF= 53.5%. Asymmetric increase in left ventricular wall thickness, measuring up to 16.5 mm in the basal and mid-septal LV haley. No atrial enlargement. No evidence of JENNA or septal contact. Mild MR. The jet is eccentric and posteriorly directed. Resting hypoperfusion noted in the basal inferoseptal LV wall. Subendocardial late gadolinium enhancement (LGE) present in the basal, mid, and distal septal and inferoseptal LV haley, consistent with presence of myocardial scarring. The pattern of LGE is most consistent with prior infarction in the respective region (likely LAD territory). The LGE occupies < 50% o total myocardial thickness, suggestive of presence of viability. Ratio of pulmonary to systemic flow, Qp:Qs ratio = 1.0 (normal < or = 1.2), demonstrating no evidence of hemodynamically significant shunt. The above findings meet CMR-criteria for HCM with preserved LV systolic function (increased septal LV wall thickness > 15 mm and presence of minimal patchy septal LGE). No evidence of JENNA or LVOT obstruction. Further evaluation, namely stress echo to evaluate for provocable LVOT gradient with exercise, cardiac monitoring to evaluate for NSVT burden, genetic testing, and screening of immediate family members with cardiac MRIs is recommended. The patchy LGE burden is < 5% of the total myocardial thickness, and therefore does not meet criteria for ICD for primary prevention. Also, in the setting of prior history of GA, the large subendocardial LGE pattern and wall motion abnormalities noted in the septal and inferoseptal LV haley are most consistent with presence of prior infarct. Nonetheless, the respective infarcted region remains largely viable. COMPARISON None CRITICAL RESULT None COMMUNICATION Per this written report The findings of this cardiac MR were reviewed, reported, and signed by Albino Cristina MD (Infrastructure Architect). Conclusion Electronically signed by : Brittany Cristina MD 07/30/2023 19:16:48
[2023-07-11] MEDS: GADOTERIDOL INJ 17ML SYRINGE 28 ML IV (14:52)
[2023-07-11] MEDS: SODIUM CHLORIDE 0.9% 50ML BAG 25 ML IV (14:52)
[2023-07-11] MEDS: SODIUM CHLORIDE 0.9% 10ML SYR (RAD ONLY) 10 ML IV (14:52)
== END 2023-07-11 23:59 ==
LOC: RAD 13:00
PROVIDERS: PCP Nurse Practitioner Family; Visit Provider Nurse Practitioner
DX: R07.9 Chest pain, unspecified (principal); I42.1 Obstructive hypertrophic cardiomyopathy; I50.30 Unspecified diastolic (congestive) heart failure; I25.10 Atherosclerotic heart disease of native coronary artery without angina pectoris; E78.5 Hyperlipidemia, unspecified; E11.65 Type 2 diabetes mellitus with hyperglycemia; Z79.84 Long term (current) use of oral hypoglycemic drugs
CPT/HCPCS: 75561; A9576

== ENCOUNTER 2023-08-16 07:57 | Day surgery (SDC) | payer OTHER, SELFPAY ==
[2023-08-16] VITALS (14 sets, daily range): BP systolic 110–169; BP diastolic 25–97; PULSE 87–105; RESP 14–19; TEMP 36.1–36.6; O2SAT 89–97; BMI 34.7
--- NOTE | 2023-08-16 | IR_ITS ---
APPROVED REPORT Patient Location: Outpatient PROCEDURES Left heart catheterization Left ventriculogram Selective coronary angiogram Drug-eluting stent deployment to the mid LAD Drug-eluting stent deployment to the mid dominant right coronary INDICATION Coronary artery disease, Accelerated angina pectoris, Informed consent was obtained prior to the procedure. COMPLICATIONS None Estimated Blood Loss: lesss than 10 ml TECHNIQUE One percent lidocaine used to anesthetize the right anterior aspect of the wrist. The right radial artery was accessed via the Seldinger technique. A 6 [place] sheath was placed in the right radial artery. 2.5 mg of Verapamil, 800 mcg of nitroglycerin, 1mg Lidocaine and 5000 U Heparin were given through the arterial sheath. The papa catheter was also used to perform left heart catheterization, left ventriculogram and selective coronary angiogram. At the end of the diagnostic angiogram therapeutic heparin was administered giving a therapeutic ACT and the guide catheter was placed in the left main artery followed by Choice PT to support wire down the circumflex artery for stability followed by a second wire into the LAD. A 3.5 x 18 mm Dax frontier stent was deployed at 24 bre reducing the critical stenosis to 0%. NIYAH-3 flow was present before and after the procedure. Following this the guide catheter was placed into the right coronary artery followed by Choice PT for support wire and a 4 mm x 18 mm Dax frontier stent was deployed at 24 bre reducing the severe stenosis to 0%. NIYAH-3 flow was present before and after the procedure. At the end of the procedure the apparatus was removed the sheath was removed good hemostasis was achieved using TR banding patient was transferred to the postop holding in stable condition ANGIOGRAPHIC RESULTS The left main artery Normal The left anterior descending artery Has a stent in the proximal through mid segment. The midportion of the LAD has a concentric 90% stenosis. The remaining vessel has diffuse 20 and 30% stenoses The circumflex artery Is a nondominant yet still large vessel and has stents in the midsegment which are widely patent with minimal in-stent restenosis. The first obtuse marginal has a mid vessel eccentric 40% stenosis. The right coronary artery Is a large dominant vessel and has proximal 30% stenosis with a mid vessel concentric 90% stenosis representing in-stent restenosis. Distally there are 30 and 40% concentric in-stent restenosis The KHAN ventriculogram reveals Normal 65% The left ventricular end-diastolic pressure 15 mmHg IMPRESSION Severe in-stent restenosis within the mid LAD Successful stenting of mid LAD severe disease reduced to 0% with 1 drug-eluting stent Severe in-stent restenosis within the mid dominant right coronary Successful stent to the mid right coronary severe disease reduced to 0% with 1 drug-eluting stent Normal ejection fraction Normal left ventricular end-diastolic pressure PLAN 1. Dual antiplatelet therapy 2. Cardiac rehabilitation 3. LDL less than 55 to be achieved with high intensity statin 4. Avoidance of tobacco products 5. Risk factor modification Electronically signed by : Humberto Marie MD 08/16/2023 11:06:01
[2023-08-16] MEDS: ASPIRIN EC 81MG TABLET 81 MG PO (08:37)
[2023-08-16] MEDS: CLOPIDOGREL 75MG TAB 75 MG PO (08:37)
[2023-08-16 08:39] LABS: Basophils # 0.1 K/mm3 (0-0.2); Basophils % 1.2 % (0.1-2.0); Eosinophils # 0.2 K/mm3 (0.0-0.4); Eosinophils % 1.9 % (0.1-12.0); Lymphocytes # 3.5 K/mm3 (0.7-4.5); Lymphocytes % 30.7 % (10-50); Mean Corpuscular HGB Conc 33.3 g/dL (31.8-35.4); Mean Corpuscular Hemoglobin 32.1 pg (27.0-31.2); Mean Corpuscular Volume 96.5 fl (80-94); Mean Platelet Volume 8.6 fl (7.4-10.4); Monocytes # 0.7 K/mm3 (0.1-1.0); Monocytes % 6.1 % (1.7-9.3); Neutrophils # 6.9 K/mm3 (1.8-7.8); Platelet Count 267 K/mm3 (142-424); Red Blood Count 5.28 M/mm3 (4.60-6.20); Red Cell Distribution Width 14.2 % (11.5-17.5); White Blood Count 11.5 K/mm3 (4.8-10.8)
[2023-08-16 08:46] LABS: Anion Gap 14.3 mEq/L (5-15); Blood Urea Nitrogen 17 mg/dl (9-20); Calcium 9.4 mg/dl (8.4-10.2); Carbon Dioxide 26 mmol/L (22.0-30.0); Chloride 101 mmol/L (98-107); Creatinine Clearance Estimated 176 mL/min (50-200); Estimated Glomerular Filt Rate 88 ml/min (>60); GFR (African American) 106 ML/MIN (>60); Glucose 217 mg/dl (74-100); Potassium 4.3 mmoL/L (3.5-5.1); Sodium 137 mmol/L (136-145)
[2023-08-16] MEDS: diphenhydrAMINE 50MG/ML VIAL 50 MG IV (10:19)
[2023-08-16] MEDS: VERAPAMIL 2.5MG/ML 2ML VIAL 2.5 MG IV (10:19)
[2023-08-16] MEDS: HEPARIN 1,000 UNITS/500ML NS (CATH LAB) 3000 UNIT IV (10:20)
[2023-08-16] MEDS: HEPARIN 1,000 UNITS/ML 10ML VIAL (CATH LAB) 10000 UNIT IV (10:20)
[2023-08-16] MEDS: MIDAZOLAM HCL 1MG/1ML 5ML VIAL 1 MG IV (10:20)
[2023-08-16] MEDS: 0.9 % SODIUM CHLORIDE 500 ML 25 ML IV (10:20)
[2023-08-16] MEDS: NITROGLYCERIN 800MCG/8ML SYR (CATH LAB) 800 MCG IA (10:20)
[2023-08-16] MEDS: LIDOCAINE 1% 10ML MDV 20 ML IJ (10:20)
[2023-08-16] MEDS: FENTANYL 100MCG/2ML VIAL 50 MCG IV (10:44)
--- NOTE | 2023-08-16 11:16 | ECG_ITS ---
APPROVED REPORT Exam: Resting ECG HR:92 bpm ECG Measurements Heart Rate 92 AXES TN 186 P 51 QRSd 105 QRS -5 QT 367 T 79 QTc 416 Conclusion SINUS RHYTHM POSSIBLE INFERIOR MYOCARDIAL INFARCTION , OF INDETERMINATE AGE [30 ms Q WAVE IN II/aVF] ABNORMAL ECG UNCONFIRMED REPORT Electronically signed by : Pierce Davis MD 08/16/2023 20:19:58
[2023-08-16] MEDS: IOPAMIDOL-370 (76%);100ML BOTTLE 120 ML IV (11:43)
[2023-08-16 11:55] LABS: CATHL Activated Clotting Time 358 SEC (74-125)
--- NOTE | 2023-08-16 13:19 | SUR.PHASEII ---
2 ml of air removed at 1300, 1315 without issues.
--- NOTE | 2023-08-16 14:59 | SUR.PHASEII ---
2ml of air removed from radial band per protocol. removed at 1440 by Amy Chapman RN with no issue.
== END 2023-08-16 15:00 | disposition home or self-care (01) ==
PROVIDERS: PCP Nurse Practitioner Family; Visit Provider Internal Medicine
DX: I25.110 Atherosclerotic heart disease of native coronary artery with unstable angina pectoris (principal); Z79.899 Other long term (current) drug therapy; Z95.5 Presence of coronary angioplasty implant and graft; I11.0 Hypertensive heart disease with heart failure; I50.32 Chronic diastolic (congestive) heart failure; I25.5 Ischemic cardiomyopathy; J44.9 Chronic obstructive pulmonary disease, unspecified; I25.2 Old myocardial infarction; E11.9 Type 2 diabetes mellitus without complications; I42.2 Other hypertrophic cardiomyopathy; T82.855A Stenosis of coronary artery stent, initial encounter
CPT/HCPCS: 80048; 85025; 85347; 92928; 93005; 93458; 99152; 99153; C1725; C1760; C1769; C1876; C9600; J1644; Q9967

== ENCOUNTER 2024-03-16 13:49 | Emergency (ER) | payer OTHER, SELFPAY ==
[2024-03-16 13:49] VITALS: BP 112/71; PULSE 85; RESP 20; TEMP 36.8; O2SAT 95; BMI 33.2
[2024-03-16 14:10] VITALS: PULSE 85
--- NOTE | 2024-03-16 14:15 | PC.NURSE ---
Rounded on patient, patient voiced that he does not need anything at the moment. Call light in reach of patient.
--- NOTE | 2024-03-16 14:16 | ED_ITS ---
<Statement entered by Laya Betancourt MD - 03/16/24 22:03> I was consulted by the ELEONORA, and we discussed the complexity of the problems being addressed. I approved the treatment and management plan for this patient's care in the emergency department, thus performing a substantive portion of the medical decision making. Laya Betancourt MD, MANINDER, FACEP Discharge Plan Disposition Patient Disposition: Home, Self-Care Condition: Good Chief Complaint: Chest Pain Prescriptions Prescriptions: No Action atorvastatin 80 mg tablet 80 mg PO HS hydrochlorothiazide 25 mg tablet 25 mg PO DAILY Qty: 90 3RF hydroxyzine pamoate [Vistaril] 25 mg capsule 25 mg PO HS PRN (Reason: Insomnia, anxiety) Rx Instructions: 25 or 50 mg p.o. nightly have an hour before bedtime Jardiance 10 mg tablet 10 mg PO DAILY Patient Comments: TAKE 1 TABLET BY MOUTH ONCE DAILY IN THE MORNING Ozempic 1 mg/dose (4 mg/3 mL) pen injector 1 mg SQ WEEKLY Patient Comments: INJECT 1MG SUBCUTANEOUSLY ONCE A WEEK nadolol 80 mg tablet See Rx Instructions .ROUTE .COMPLEX Qty: 180 4RF Dose Instruction: Take 1 tablet by mouth twice daily Rx Instructions: Take 1 tablet by mouth twice daily valsartan 320 mg tablet See Rx Instructions .ROUTE .COMPLEX Qty: 90 3RF Dose Instruction: TAKE 1 TABLET BY MOUTH ONCE DAILY FOR HIGH BLOOD PRESSURE Rx Instructions: TAKE 1 TABLET BY MOUTH ONCE DAILY FOR HIGH BLOOD PRESSURE clopidogrel 75 mg tablet See Rx Instructions .ROUTE .COMPLEX Qty: 90 3RF Dose Instruction: Take 1 tablet by mouth once daily Rx Instructions: Take 1 tablet by mouth once daily digoxin 250 mcg (0.25 mg) tablet 250 mcg PO DAILY Qty: 90 3RF albuterol sulfate 90 mcg/actuation HFA aerosol inhaler 2 inh inhalation QID PRN (Reason: shortness of breath or wheezing) 90 Days Qty: 8.5 2RF Stiolto Respimat 2.5-2.5 mcg/actuation mist 2 puff inhalation DAILY 90 Days Qty: 4 2RF isosorbide mononitrate 30 mg tablet extended release 24 hr 30 mg PO DAILY Qty: 90 1RF ranolazine 500 mg tablet extended release 12 hr 500 mg PO BID Qty: 180 1RF aspirin 81 MG tablet,delayed release (DR/EC) 81 mg PO DAILY metformin 1,000 MG tablet 1,000 mg PO BID nitroglycerin 0.4 mg tablet, sublingual 0.4 mg sublingual Q5M PRN (Reason: chest pain) Qty: 30 0RF Rx Instructions: do not exceed 3 doses per episode Referrals Follow up/Referrals: Lisa Hannah APRN [Primary Care Provider] - See instructions Activity Restrictions/Add. Instructions Additional Instructions/Restrictions: Follow-up with Dr. Marie on Monday as scheduled If any symptoms return come back to the ER for evaluation Follow-up with primary care this week Clinical Impressions Clinical Impression: Chest pain Instructions Patient Instructions: DI for Chest Pain Print Language Print Language: Swedish Discharge ED Provider: Laya Betancourt HPI <Jr Duval ([facility]), LOUIE - Last Filed: 03/16/24 17:33> General Chief Complaint: Chest Pain Stated Complaint: Chest Pain Time Seen by Provider: 03/16/24 13:51 Mode of Arrival: Ambulatory Source of Information: Patient and Spouse Limitations: No Limitations Description of Symptoms (Recalled from ER Triage Doc. by RN): pt cc of chest pain, pt has cardiac hx including several ID and 7 stents, pt sees dr marie. had a heart cath this past spring. pt states its an ache at 6/10, been going on for a week and half History of Present Illness HPI narrative: 53-year-old male presents with complaints of chest pain x 2 days that is relieved with nitroglycerin. Patient denies any other symptoms such as shortness of breath weakness or radiating pain. Patient states he had his first ID at 43 and numerous stents he believes he has at least 12 stents. Patient states his last cardiac cath was in the spring where he had 2 stents replaced. Patient is a pack and 1/2-day smoker, history of hyperlipidemia. Patient states pain comes and goes and last 10 to 15 minutes and is relieved once he takes the nitroglycerin. Patient states nothing causes the pain to worsen but does improve with nitro. Patient states he has not slept very well for 2 days due to the pain. MD complaint: chest pain indicative of cardiac Onset (ago): day(s) Duration: intermittent Activity at onset: during rest, during exertion, after eating, light activity and awoke with symptoms Pain location: left chest Severity: moderate Severity scale (1-10): 5 Quality: aching and dull Pain radiation: none Relieving factors: nitroglycerin Exacerbating factors: nothing Context: recent illness Risk Factors for CAD: Hypertension, Hypercholesterolemia and Smoking Treatments prior to or on arrival for Cardiac Chest Pain: nitroglycerin Related Data Prior Cardiac Testing/Procedures: Stenting and Cardiac Angiogram Home Medications ?Medication ?Instructions ?Recorded ?Confirmed hydroxyzine pamoate 25 mg capsule 25 mg PO HS PRN Insomnia, anxiety 12/05/22 08/16/23 (Vistaril) empagliflozin 10 mg tablet 10 mg PO DAILY Diabetes 02/14/23 08/16/23 (Jardiance) semaglutide 1 mg/dose (4 mg/3 mL) 1 mg SQ WEEKLY Diabetes 02/14/23 08/16/23 subcutaneous pen injector (Ozempic) aspirin 81 mg tablet,delayed 81 mg PO DAILY DAPT 02/23/23 08/16/23 release metformin 1,000 mg tablet 1,000 mg PO BID Diabetes 02/23/23 08/16/23 atorvastatin 80 mg tablet 80 mg PO HS 06/19/23 08/16/23 Previous Rx's ?Medication ?Instructions ?Recorded nitroglycerin 0.4 mg sublingual 0.4 mg sublingual Q5M PRN chest 06/12/23 tablet pain #30 tabs nadolol 80 mg tablet See Rx Instructions .Route 06/14/23 .COMPLEX #180 tabs hydrochlorothiazide 25 mg tablet 25 mg PO DAILY #90 tabs 06/19/23 clopidogrel 75 mg tablet See Rx Instructions .Route 10/09/23 .COMPLEX #90 tabs valsartan 320 mg tablet See Rx Instructions .Route 10/09/23 .COMPLEX #90 tabs digoxin 250 mcg (0.25 mg) tablet 250 mcg PO DAILY #90 tabs 10/19/23 albuterol sulfate 90 mcg/actuation 2 inh inhalation QID PRN shortness 11/22/23 aerosol inhaler of breath or wheezing 90 days #8.5 grams tiotropium 2.5 mcg-olodaterol 2.5 2 puff inhalation DAILY 90 days #4 12/18/23 mcg/actuation mist for inhalation grams (Stiolto Respimat) isosorbide mononitrate 30 mg 30 mg PO DAILY #90 tabs 01/09/24 tablet,extended release 24 hr ranolazine 500 mg tablet,extended 500 mg PO BID #180 tabs 01/09/24 release,12 hr Allergies Allergy/AdvReac Type Severity Reaction Status Date / Time No Known Allergies Allergy Verified 08/01/23 14:17 PFSH [facility] [place] - Last Filed: 03/16/24 17:33> PFS Disclaimer: The information contained in this section may have been updated after the patient was seen, as this information can be updated by other users. Medical History , LINING VAMPER) Serum digoxin level below therapeutic range Encounter for screening for malignant neoplasm of lung COPD mixed type Mediastinal lymphadenopathy Hilar lymphadenopathy Smoking greater than 30 pack years Dyspnea on exertion Anxiety disorder Angina pectoris Diastolic CHF, chronic Systolic congestive heart failure Congestive heart failure with LV diastolic dysfunction, NYHA class 3 Cardiomyopathy, ischemic HTN (hypertension) Dyspnea Type 2 diabetes mellitus with hyperglycemia Diabetes PRIYA (obstructive sleep apnea) Right bundle branch block (RBBB) determined by electrocardiography CAD (coronary artery disease) HLD (hyperlipidemia) Restless sleeper Non-STEMI (non-ST elevated myocardial infarction) Surgical History , LINING VAMPER) History of heart artery stent History of surgery on upper extremity Family History , LINING VAMPER) Diabetes Social History , LINING VAMPER) Smoking Status: Current every day smoker tobacco type: cigarettes packs per day: 2 alcohol intake: never substance use type: denies use current occupational status: disabled Travel in the last 8 weeks: None household members: significant other housing: house marital status: single current occupation: [employer] current occupational exposures/hazards: No Other Medical History Have you received the Flu Vaccine for this season: No Have you received the Pneumonia Vaccine: No <[facility] [place] - Last Filed: 03/16/24 17:33> ROS Obtained: Yes All systems reviewed & no additional complaints except as documented Constitutional Constitutional: Reports system reviewed and no additional complaints, except as documented, Reports as per HPI and Reports difficulty sleeping Eyes Eyes: Reports system reviewed and no additional complaints, except as documented ENT Ears, Nose, Mouth, and Throat: Reports system reviewed and no additional complaints, except as documented Cardiovascular Cardiovascular: Reports system reviewed and no additional complaints, except as documented, Reports as per HPI, Reports chest pain, Reports chest pain at rest and Reports chest pain with activity Respiratory Respiratory: Reports system reviewed and no additional complaints, except as documented Gastrointestinal Gastrointestingal: Reports system reviewed and no additional complaints, except as documented and as per HPI Musculoskeletal Musculoskeletal: Reports system reviewed and no additional complaints, except as documented Integumentary/Breasts Skin/Breast: Reports system reviewed and no additional complaints, except as documented Neurologic Neurologic: Reports system reviewed and no additional complaints, except as documented Endocrine Endocrine: Reports system reviewed and no additional complaints, except as documented Hematologic/Lymphatic Henatologic/Lymphatic: Reports system reviewed and no additional complaints, except as documented Allergic/Immunologic Allergic/Immunologic: Reports system reviewed and no additional complaints, except as documented Physical Exam <Jr Duval ([facility]), LINING VAMPER - Last Filed: 03/16/24 17:33> General General appearance: alert and in no apparent distress Head Head exam: atraumatic Eye Eye exam: Present normal appearance ENT ENT exam: Present normal exam Neck Neck exam: Present normal inspection Chest Chest inspection: Present normal inspection Respiratory Respiratory exam: Present normal lung sounds bilaterally Cardiovascular Cardiovascular exam: Present regular rate and normal rhythm Neurological Exam Neurological exam: Present alert and oriented X3 Skin Skin exam: Present warm HEART Score <Jr Duval ([facility]), LINING VAMPER - Last Filed: 03/16/24 17:33> HEART Score HEART Score assessment performed?: Yes History (anamnesis): Moderately suspicious ECG: Normal Age: 45-65 years Risk factors: 3 or more risk factors Troponin: 1-3x normal limit HEART Score: 5 Critical Care <Jr Duval ([facility]), LINING VAMPER - Last Filed: 03/16/24 17:33> Critical Care Time Critical Care Time: No Medical Decision Making <Jr Duval ([facility]), LINING VAMPER - Last Filed: 03/16/24 17:33> Medical Records Medical records reviewed: Yes I reviewed the patient's medical records. [place] Inquiry Pt receiving controlled substance: No [place] was queried for this patient: No Vital Signs Vital Signs: 03/16/24 13:49 03/16/24 14:10 03/16/24 15:57 Temperature 98.2 F Temperature Source Oral Pulse Rate 85 80 Pulse Rate [Right Radial] 85 Respiratory Rate 20 18 Blood Pressure 105/69 L Blood Pressure [Right Arm] 112/71 Blood Pressure Mean 76 Blood Pressure Mean [Right Arm] 84 02 Sat by Pulse Oximetry 95 93 L Oxygen Delivery Method Room Air 03/16/24 16:00 03/16/24 16:31 Temperature Temperature Source Pulse Rate 81 77 Pulse Rate [Right Radial] Respiratory Rate 18 18 Blood Pressure 108/65 L 96/62 L Blood Pressure [Right Arm] Blood Pressure Mean 76 72 Blood Pressure Mean [Right Arm] 02 Sat by Pulse Oximetry 98 92 L Oxygen Delivery Method Lab Data Lab results reviewed: Yes I reviewed the patient's lab results. Labs: Lab Results 03/16/24 14:00: WBC 9.3, RBC 5.56, Hgb 17.5, Hct 52.7 H, MCV 94.8 H, MCH 31.5 H, MCHC 33.2, RDW 14.0, Plt Count 200, MPV 8.5, Neut % (Auto) 66.7, Lymph % (Auto) 23.6, [place] % (Auto) 6.6, Eos % (Auto) 2.1, Baso % (Auto) 1.1, Neut # (Auto) 6.2, Lymph # (Auto) 2.2, [place] # (Auto) 0.6, Eos # (Auto) 0.2, Baso # (Auto) 0.1, Total Counted 100, Neutrophils % (Manual) 65, Lymphocytes % (Manual) 28, Monocytes % (Manual) 6, Eosinophils % (Manual) 1, Platelet Estimate Normal, RBC Morphology Normal, Sodium 131 L, Potassium 4.6, Chloride 93 L, Carbon Dioxide 28, Anion Gap 14.6, BUN 27 H, Creatinine 1.10, Estimated Creat Clear 136, Estimated GFR 69, Est GFR ( Amer) 84, Glucose 317 H, Calcium 9.8, Total Bilirubin 0.7, AST 31, ALT 31, Alkaline Phosphatase 66, Total Creatine Kinase 111, CK-MB (CK-2) 4.7 H, CK-MB (CK-2) Rel Index 4.2 H, Troponin I < 0.01, Total Protein 8.0, Albumin 4.5, Globulin 3.5 H, Albumin/Globulin Ratio 1.3 03/16/24 16:32: Troponin I < 0.01 03/16/24 14:00 03/16/24 14:00 Response Orders (Tests/Meds): ED MEDICATIONS Discontinued Medications Generic Name Dose Route Start Last Admin Trade Name Shefali PRN Reason Stop Dose Admin Aspirin 325 mg 03/16/24 14:24 03/16/24 14:29 Aspirin 325mg Tablet PO 03/16/24 14:25 325 mg ONCE ONE Administration ORDERS Category Date Time Status Chest XR AP view [XR chest AP] Stat Exams 03/16/24 14:17 Completed CBC Man Diff [Complete Blood Count Man Dif] Stat Lab 03/16/24 14:00 Completed CMP [Comprehensive Metabolic Panel] Stat Lab 03/16/24 14:00 Completed Cardiac Enzymes Stat Lab 03/16/24 14:00 Completed Troponin I Q3H Lab 03/16/24 16:32 Completed Troponin I Q3H Lab 03/16/24 20:30 Ordered Reevaluation(s) Time: 15:20 Reevaluation #1: Denies any symptoms at this time MDM Narrative Medical Decision Narrative: Insert in summary patient is a 53-year-old male who presents to the emergency department for evaluation of intermediate chest pain for 2 days. Patient is hemodynamically stable upon arrival, afebrile. Unremarkable physical exam. Differential diagnosis includes angina. Initial workup will be conducted with [hematologic labs, imaging, respiratory swab, described workup]. Initial inventions include [crystalloid bolus, medications, p.o. challenge, etc.]. Initial workup reviewed by me [hematologic labs remarkable for? Imaging remarkable for? Urinalysis remarkable for?]. Upon repeat evaluation [patient had except for resolution of symptoms, had persistent pain for which additional interventions were conducted (describe interventions), tolerated p.o., was ambulatory, etc.]. Given this [patient was appropriate for discharge at this time and will be discharged with a prescription for? This case was discussed with hospital medicine regarding management? They will meet the patient to their service for continued evaluation at this time? Etc.] Places where you can increase complexity: Chest x-ray clear lung saleh with cardiomegaly Normal sinus rhythm with a ventricular rate of [address] changes concerning for ischemia. Will defer from working out for pulmonary embolus due to patient being asymptomatic at this time. Will recheck cardiac enzyme due to chest pain being intermediate. Second set of troponins negative while patient's has been in the ER has denied all symptoms. On recheck patient still denies any symptoms. <Lay Lux, DO - Last Filed: 03/16/24 15:21> Vital Signs Vital Signs: 03/16/24 13:49 03/16/24 14:10 03/16/24 15:57 Temperature 98.2 F Temperature Source Oral Pulse Rate 85 80 Pulse Rate [Right Radial] 85 Respiratory Rate 20 18 Blood Pressure 105/69 L Blood Pressure [Right Arm] 112/71 Blood Pressure Mean 76 Blood Pressure Mean [Right Arm] 84 02 Sat by Pulse Oximetry 95 93 L Oxygen Delivery Method Room Air 03/16/24 16:00 03/16/24 16:31 Temperature Temperature Source Pulse Rate 81 77 Pulse Rate [Right Radial] Respiratory Rate 18 18 Blood Pressure 108/65 L 96/62 L Blood Pressure [Right Arm] Blood Pressure Mean 76 72 Blood Pressure Mean [Right Arm] 02 Sat by Pulse Oximetry 98 92 L Oxygen Delivery Method Lab Data Labs: Lab Results 03/16/24 14:00: WBC 9.3, RBC 5.56, Hgb 17.5, Hct 52.7 H, MCV 94.8 H, MCH 31.5 H, MCHC 33.2, RDW 14.0, Plt Count 200, MPV 8.5, Neut % (Auto) 66.7, Lymph % (Auto) 23.6, [place] % (Auto) 6.6, Eos % (Auto) 2.1, Baso % (Auto) 1.1, Neut # (Auto) 6.2, Lymph # (Auto) 2.2, [place] # (Auto) 0.6, Eos # (Auto) 0.2, Baso # (Auto) 0.1, Total Counted 100, Neutrophils % (Manual) 65, Lymphocytes % (Manual) 28, Monocytes % (Manual) 6, Eosinophils % (Manual) 1, Platelet Estimate Normal, RBC Morphology Normal, Sodium 131 L, Potassium 4.6, Chloride 93 L, Carbon Dioxide 28, Anion Gap 14.6, BUN 27 H, Creatinine 1.10, Estimated Creat Clear 136, Estimated GFR 69, Est GFR ( Amer) 84, Glucose 317 H, Calcium 9.8, Total Bilirubin 0.7, AST 31, ALT 31, Alkaline Phosphatase 66, Total Creatine Kinase 111, CK-MB (CK-2) 4.7 H, CK-MB (CK-2) Rel Index 4.2 H, Troponin I < 0.01, Total Protein 8.0, Albumin 4.5, Globulin 3.5 H, Albumin/Globulin Ratio 1.3 03/16/24 16:32: Troponin I < 0.01 Response Orders (Tests/Meds): ED MEDICATIONS Discontinued Medications Generic Name Dose Route Start Last Admin Trade Name Freq PRN Reason Stop Dose Admin Aspirin 325 mg 03/16/24 14:24 03/16/24 14:29 Aspirin 325mg Tablet PO 03/16/24 14:25 325 mg ONCE ONE Administration ORDERS Category Date Time Status Chest XR AP view [XR chest AP] Stat Exams 03/16/24 14:17 Completed CBC Man Diff [Complete Blood Count Man Dif] Stat Lab 03/16/24 14:00 Completed CMP [Comprehensive Metabolic Panel] Stat Lab 03/16/24 14:00 Completed Cardiac Enzymes Stat Lab 03/16/24 14:00 Completed Troponin I Q3H Lab 03/16/24 16:32 Completed Troponin I Q3H Lab 03/16/24 20:30 Ordered ECG Data Tracing #1: Attestation: I reviewed this ECG and interpreted as documented below: ECG Narrative: Normal sinus rhythm with a ventricular rate of [address] changes concerning for ischemia. ECG initial impression date: 03/16/24 ECG initial impression time: 13:52
--- NOTE | 2024-03-16 14:17 | XR_ITS ---
PROCEDURE INFORMATION: Exam: XR Chest Exam date and time: 03/16/2024 2:31 PM Age: 53 years old Clinical indication: Pain; Angina pectoris; Additional info: Chest pain TECHNIQUE: Imaging protocol: Radiologic exam of the chest. Views: 1 view. COMPARISON: CR XR CHEST PORTABLE 06/12/2023 6:38 AM FINDINGS: Lungs: The lungs are clear. Pleural spaces: No pneumothorax or pleural effusion. Heart/Mediastinum: Heart size is enlarged. Coronary vessel calcifications versus stent noted. Mediastinal contours unremarkable. Bones/joints: No acute osseous or soft tissue abnormality. IMPRESSION: 1. The lungs are clear. 2. Cardiomegaly.
--- NOTE | 2024-03-16 14:17 | ECG_ITS ---
APPROVED REPORT Exam: Resting ECG HR:81 bpm ECG Measurements Heart Rate 81 AXES ID 188 P 55 QRSd 100 QRS -2 QT 363 T 54 QTc 400 Conclusion SINUS RHYTHM LOW QRS VOLTAGE IN PRECORDIAL LEADS [QRS DEFLECTION < 1.0 mV IN CHEST LEADS] BORDERLINE ECG Electronically signed by : STACIE FALCON, 03/16/2024 16:27:17
[2024-03-16 14:22] LABS: MANUAL DIFFERENTIAL MANUAL DIFFERENTIAL (MANUAL DIFF)
[2024-03-16 14:28] LABS: Basophils # 0.1 K/mm3 (0-0.2); Basophils % 1.1 % (0.1-2.0); Eosinophils # 0.2 K/mm3 (0.0-0.4); Eosinophils % 2.1 % (0.1-12.0); Hematocrit 52.7 % (42.0-52.0); Hemoglobin 17.5 g/dL (14.1-18.0); Lymphocytes # 2.2 K/mm3 (0.7-4.5); Lymphocytes % 23.6 % (10-50); Mean Corpuscular HGB Conc 33.2 g/dL (31.8-35.4); Mean Corpuscular Hemoglobin 31.5 pg (27.0-31.2); Mean Corpuscular Volume 94.8 fl (80-94); Mean Platelet Volume 8.5 fl (7.4-10.4); Monocytes # 0.6 K/mm3 (0.1-1.0); Monocytes % 6.6 % (1.7-9.3); Neutrophils # 6.2 K/mm3 (1.8-7.8); Neutrophils % 66.7 % (37.0-80.0); Platelet Count 200 K/mm3 (142-424); Red Blood Count 5.56 M/mm3 (4.60-6.20); White Blood Count 9.3 K/mm3 (4.8-10.8)
[2024-03-16 14:29] LABS: Albumin Level 4.5 g/dl (3.5-5.0); Chloride 93 mmol/L (98-107); Sodium 131 mmol/L (136-145)
[2024-03-16] MEDS: ASPIRIN 325MG TABLET 325 MG PO (14:29)
[2024-03-16 14:30] LABS: Potassium 4.6 mmoL/L (3.5-5.1)
[2024-03-16 14:32] LABS: Alanine Aminotransferase 31 U/L (12-78); Albumin/Globulin Ratio 1.3 (1.1-1.8); Alkaline Phosphatase 66 U/L (38-126); Anion Gap 14.6 mEq/L (5-15); Aspartate Amino Transferase 31 U/L (17-59); Bilirubin,Total 0.7 mg/dl (0.2-1.3); Blood Urea Nitrogen 27 mg/dl (9-20); Carbon Dioxide 28 mmol/L (22.0-30.0); Creatine Kinase 111 U/L (55-170); Creatinine Clearance Estimated 136 mL/min (50-200); Estimated Glomerular Filt Rate 69 ml/min (>60); GFR (African American) 84 ML/MIN (>60); Globulin 3.5 g/dL (1.3-3.2)
[2024-03-16 14:33] LABS: Calcium 9.8 mg/dl (8.4-10.2); Glucose 317 mg/dl (74-100)
[2024-03-16 14:44] LABS: CKMB Relative Index 4.2 U/L (0-4.0); Creatine Kinase MB 4.7 ng/ml (0.0-2.03)
[2024-03-16 14:51] LABS: Eosinophils % 1 % (0-3); Lymphocytes % 28 % (10-50); Monocytes % 6 % (2-9); Neutrophils % 65 % (42-76); Total Cells Counted 100
[2024-03-16 14:52] LABS: Platelet Estimate Normal; RBC Morphology Normal; Troponin I < 0.01 ng/ml (0.00-0.034)
[2024-03-16 15:57] VITALS: BP 105/69; PULSE 80; RESP 18; O2SAT 93
[2024-03-16 16:00] VITALS: BP 108/65; PULSE 81; RESP 18; O2SAT 98
[2024-03-16 16:31] VITALS: BP 96/62; PULSE 77; RESP 18; O2SAT 92
[2024-03-16 17:19] LABS: Troponin I < 0.01 ng/ml (0.00-0.034)
[2024-03-16 17:38] VITALS: BP 96/92; PULSE 80; RESP 18; TEMP 36.7; O2SAT 93
== END 2024-03-16 17:40 | disposition home or self-care (01) ==
PROVIDERS: Emergency Medicine; Nurse Practitioner Family; Emergency Provider Student in an Organized Health Care Education/Training Program; PCP Nurse Practitioner Family
DX: R07.9 Chest pain, unspecified (principal)
CPT/HCPCS: 71045; 80053; 82550; 82553; 84484; 85007; 85014; 85018; 85048; 85049; 93005; 99284

== ENCOUNTER 2024-03-19 15:30 | Outpatient (CLI) | payer OTHER, SELFPAY ==
[2024-03-19 16:20] LABS: Cholesterol 218 mg/dl (140-200); HDL Cholesterol 31 mg/dl (40-60); Triglycerides 315 mg/dl (30-150); VLDL Cholesterol 63 mg/dL (0-40)
[2024-03-19 16:31] LABS: Direct LDL Cholesterol 124.27 mg/dL (100-129)
== END 2024-03-19 23:59 | disposition home or self-care (01) ==
PROVIDERS: Physician Assistant; PCP Nurse Practitioner Family; Visit Provider Internal Medicine
DX: R07.9 Chest pain, unspecified (principal); R06.09 Other forms of dyspnea; I25.118 Atherosclerotic heart disease of native coronary artery with other forms of angina pectoris; R06.00 Dyspnea, unspecified; E11.65 Type 2 diabetes mellitus with hyperglycemia; Z79.84 Long term (current) use of oral hypoglycemic drugs; Z79.85 Long-term (current) use of injectable non-insulin antidiabetic drugs; F17.210 Nicotine dependence, cigarettes, uncomplicated; I10 Essential (primary) hypertension
CPT/HCPCS: 36415; 80061; 83036; 93270

== ENCOUNTER 2024-08-25 13:56 | Emergency (ER) | payer MEDICARE, SELFPAY ==
[2024-08-25 13:59] VITALS: BP 161/83; PULSE 79; RESP 18; TEMP 36.4; O2SAT 100; BMI 33.7
--- NOTE | 2024-08-25 14:20 | XR_ITS ---
PROCEDURE INFORMATION: Exam: XR Right Foot Exam date and time: 08/25/2024 2:23 PM Age: 53 years old Clinical indication: Other: Wound, 1st mtp, concern for osteomyelitis TECHNIQUE: Imaging protocol: Radiologic exam of the right foot. Views: 1 or 2 views. COMPARISON: No relevant prior studies available. FINDINGS: Bones/joints: There is no evidence of acute fracture.There is no evidence of malalignment or dislocation. Degenerative changes in the 1st metatarsal phalangeal joint. No definite osteolytic process. Soft tissues: Defect in the skin adjacent to the 1st metatarsophalangeal joint may represent an open wound IMPRESSION: 1. There is no evidence of acute fracture.There is no evidence of malalignment or dislocation. 2. No definite osteolytic process.
--- NOTE | 2024-08-25 14:23 | HMH.EDGENADL ---
Discharge Plan Disposition Patient Disposition: Home, Self-Care Condition: Good Prescriptions Prescriptions: New cephalexin 500 mg capsule 500 mg PO QID 7 Days Qty: 28 0RF No Action hydroxyzine pamoate [Vistaril] 25 mg capsule 25 mg PO HS PRN (Reason: Insomnia, anxiety) Rx Instructions: 25 or 50 mg p.o. nightly have an hour before bedtime [place] 10 mg tablet 10 mg PO DAILY Patient Comments: TAKE 1 TABLET BY MOUTH ONCE DAILY IN THE MORNING Ozempic 1 mg/dose (4 mg/3 mL) pen injector 1 mg SQ WEEKLY Patient Comments: INJECT 1MG SUBCUTANEOUSLY ONCE A WEEK nadolol 80 mg tablet See Rx Instructions .ROUTE .COMPLEX Qty: 180 4RF Dose Instruction: Take 1 tablet by mouth twice daily Rx Instructions: Take 1 tablet by mouth twice daily valsartan 320 mg tablet See Rx Instructions .ROUTE .COMPLEX Qty: 90 3RF Dose Instruction: TAKE 1 TABLET BY MOUTH ONCE DAILY FOR HIGH BLOOD PRESSURE Rx Instructions: TAKE 1 TABLET BY MOUTH ONCE DAILY FOR HIGH BLOOD PRESSURE clopidogrel 75 mg tablet See Rx Instructions .ROUTE .COMPLEX Qty: 90 3RF Dose Instruction: Take 1 tablet by mouth once daily Rx Instructions: Take 1 tablet by mouth once daily digoxin 250 mcg (0.25 mg) tablet 250 mcg PO DAILY Qty: 90 3RF Stiolto Respimat 2.5-2.5 mcg/actuation mist 2 puff inhalation DAILY 90 Days Qty: 4 2RF ranolazine 500 mg tablet extended release 12 hr 500 mg PO BID Qty: 180 1RF Repatha SureClick 140 mg/mL pen injector 140 mg SQ Q2W Qty: 2 5RF albuterol sulfate 90 mcg/actuation HFA aerosol inhaler 2 inh inhalation QID PRN (Reason: shortness of breath or wheezing) 90 Days Qty: 8.5 2RF isosorbide mononitrate 30 mg tablet extended release 24 hr See Rx Instructions .ROUTE .COMPLEX Qty: 180 3RF Dose Instruction: Take 2 tablets by mouth once daily Rx Instructions: Take 2 tablets by mouth once daily atorvastatin 80 mg tablet See Rx Instructions .ROUTE .COMPLEX Qty: 90 3RF Dose Instruction: TAKE 1 TABLET BY MOUTH AT BEDTIME NIGHTLY Rx Instructions: TAKE 1 TABLET BY MOUTH AT BEDTIME NIGHTLY hydrochlorothiazide 25 mg tablet See Rx Instructions .ROUTE .COMPLEX Qty: 90 3RF Dose Instruction: Take 1 tablet by mouth once daily Rx Instructions: Take 1 tablet by mouth once daily aspirin 81 MG tablet,delayed release (DR/EC) 81 mg PO DAILY metformin 1,000 MG tablet 1,000 mg PO BID nitroglycerin 0.4 mg tablet, sublingual 0.4 mg sublingual Q5M PRN (Reason: chest pain) Qty: 30 0RF Rx Instructions: do not exceed 3 doses per episode Referrals Follow up/Referrals: Lisa Hannah APRN [Primary Care Provider] - See instructions Activity Restrictions/Add. Instructions Additional Instructions/Restrictions: Follow-up with your primary care appointment on as scheduled. Take antibiotics as prescribed. Keep the wound clean by using gentle soap and water and let it is much as possible. If you develop any new or worsening symptoms, or if you become concerned for your health for any reason, return to the emergency department for evaluation. Clinical Impressions Clinical Impression: Cellulitis of foot, left, Foot ulcer, left Instructions Patient Instructions: DI for Laceration Repair Print Language Print Language: Portuguese Discharge ED Provider: Denton Matson Adult HPI General Chief complaint: Wound/Laceration Stated complaint: Open wound on R foot Time Seen by Provider: 08/25/24 14:06 Mode of Arrival: Ambulatory Source of Information: Patient and Relative Description of Symptoms (Recalled from ER Triage Doc. by RN): Pt presents with evaluation of a right foot wound. Pt states he has had the wound for 1 week, it is open and draining. Pt rates pain as a 1. Pt states he is a type 2 diabetic, and his bgl has been running in the 200s History of Present Illness HPI narrative: Humberto Goodman is a 53y male with a history of diabetes mellitus on [place], [place], tobacco use, COPD, hypertension who presents to the emergency department for complaints of a wound to his right foot. Patient states that over last 2 weeks, he has had an ulcerating wound at the base of his right first toe on the lateral aspect that has gotten bigger and increase in redness. He notes that he has numbness and tingling in his feet at baseline but does not report any significant pain. He reports has been draining a small amount of fluid today. He denies any fevers. He states that nothing like this is ever happened before. He notes that his blood sugar tends to run high at home between 200-400. Related Data Home Medications ?Medication ?Instructions ?Recorded ?Confirmed hydroxyzine pamoate 25 mg capsule 25 mg PO HS PRN Insomnia, anxiety 12/05/22 03/19/24 (Vistaril) empagliflozin 10 mg tablet 10 mg PO DAILY Diabetes 02/14/23 03/19/24 (Jardiance) semaglutide 1 mg/dose (4 mg/3 mL) 1 mg SQ WEEKLY Diabetes 02/14/23 03/19/24 subcutaneous pen injector (Ozempic) aspirin 81 mg tablet,delayed 81 mg PO DAILY DAPT 02/23/23 03/19/24 release metformin 1,000 mg tablet 1,000 mg PO BID Diabetes 02/23/23 03/19/24 Previous Rx's ?Medication ?Instructions ?Recorded nitroglycerin 0.4 mg sublingual 0.4 mg sublingual Q5M PRN chest 06/12/23 tablet pain #30 tabs nadolol 80 mg tablet See Rx Instructions .Route 06/14/23 .COMPLEX #180 tabs clopidogrel 75 mg tablet See Rx Instructions .Route 10/09/23 .COMPLEX #90 tabs valsartan 320 mg tablet See Rx Instructions .Route 10/09/23 .COMPLEX #90 tabs digoxin 250 mcg (0.25 mg) tablet 250 mcg PO DAILY #90 tabs 10/19/23 tiotropium 2.5 mcg-olodaterol 2.5 2 puff inhalation DAILY 90 days #4 12/18/23 mcg/actuation mist for inhalation grams (Stiolto Respimat) ranolazine 500 mg tablet,extended 500 mg PO BID #180 tabs 01/09/24 release,12 hr evolocumab 140 mg/mL subcutaneous 140 mg SQ Q2W #2 mL 03/20/24 pen injector (Repatha SureClick) albuterol sulfate 90 mcg/actuation 2 inh inhalation QID PRN shortness 04/02/24 aerosol inhaler of breath or wheezing 90 days #8.5 grams isosorbide mononitrate 30 mg See Rx Instructions .Route 07/01/24 tablet,extended release 24 hr .COMPLEX #180 tabs atorvastatin 80 mg tablet See Rx Instructions .Route 07/08/24 .COMPLEX #90 tabs hydrochlorothiazide 25 mg tablet See Rx Instructions .Route 01/27/25 .COMPLEX #90 tabs cephalexin 500 mg capsule 500 mg PO QID 7 days #28 caps 08/25/24 Allergies Allergy/AdvReac Type Severity Reaction Status Date / Time No Known Allergies Allergy Verified 03/19/24 14:51 [facility] Disclaimer: The information contained in this section may have been updated after the patient was seen, as this information can be updated by other users. Medical History , SECTION CUTTER) Serum digoxin level below therapeutic range Encounter for screening for malignant neoplasm of lung COPD mixed type Mediastinal lymphadenopathy Hilar lymphadenopathy Smoking greater than 30 pack years Dyspnea on exertion Anxiety disorder Angina pectoris Diastolic CHF, chronic Systolic congestive heart failure Congestive heart failure with LV diastolic dysfunction, NYHA class 3 Cardiomyopathy, ischemic HTN (hypertension) Dyspnea Type 2 diabetes mellitus with hyperglycemia Diabetes PRIYA (obstructive sleep apnea) Right bundle branch block (RBBB) determined by electrocardiography CAD (coronary artery disease) HLD (hyperlipidemia) Restless sleeper Non-STEMI (non-ST elevated myocardial infarction) Surgical History , SECTION CUTTER) History of heart artery stent History of surgery on upper extremity Family History , SECTION CUTTER) Diabetes Social History , SECTION CUTTER) Smoking Status: Current every day smoker tobacco type: cigarettes packs per day: 2 alcohol intake: never substance use type: denies use current occupational status: disabled Travel in the last 8 weeks: None household members: significant other housing: house marital status: single 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 current occupational exposures/hazards: No Have you lived/traveled outside [place] in past 30 days?: No Contact w/someone who lives/traveled outside US past 30 days?: No Exposure to someone with infectious disease in past 14 days?: No Do you have a fever (greater than 100.4 F or 38 C)?: No Have you tested positive for COVID-19: No Exposed to someone with COVID-19 in past 14 days?: No Do you have a sore throat?: No Do you have a cough?: No Do you have any weakness?: No Do you have any diarrhea?: No Are you experiencing any unusual bleeding?: No Do you have any muscle aches/pain?: No Do you have any abdominal pain?: No Are you experiencing loss of taste or smell?: No Other Medical History Have you received the Flu Vaccine for this season: No Have you received the Pneumonia Vaccine: No ROS Obtained: Yes Systems reviewed as appropriate & no additional complaints except as documented Physical Exam General General appearance: alert and in no apparent distress Head Head exam: atraumatic Eye Eye exam: Present normal appearance ENT ENT exam: Present normal external ear exam Neck Neck exam: Present full ROM Chest Chest inspection: Present symmetric chest wall rise Respiratory Respiratory exam: Present normal lung sounds bilaterally; Absent respiratory distress Cardiovascular Cardiovascular exam: Present regular rate and normal rhythm Abdominal Exam Abdominal exam: Absent distention exam: Present deferred Extremities Exam Extremities exam: Present normal inspection Expanded Lower Extremity Exam Right: Comment: RLE: ulcerative wound with surrounding callous to the 1st MTP joint with surrounding erythema. No active drainage. Back Exam Back exam: Present normal inspection Neurological Exam Neurological exam: Present alert and oriented X3 Psychiatric Psychiatric exam: Present normal affect Skin Skin exam: Present warm and dry Medical Decision Making Medical Records Screening: Per USPSTF and CDC recommendations, given the prevalence of disease in our region, it is our hospital?s policy to screen for HIV and viral Hepatitis for all patients aged 18 and over and those with ongoing risk factors. [place] Inquiry Pt receiving controlled substance: No Vital Signs: 08/25/24 13:59 08/25/24 15:00 08/25/24 15:30 Temperature 97.5 F L Temperature Source Temporal Artery Scan Pulse Rate 77 71 Pulse Rate [Right] 79 Respiratory Rate 18 Blood Pressure 161/95 H 136/89 Blood Pressure [Right Arm] 161/83 H Blood Pressure Mean [Right Arm] 109 Blood Pressure Source [Right Arm] Automatic Cuff Blood Pressure Position [Right Arm] Sitting 02 Sat by Pulse Oximetry 100 94 L 95 Oxygen Delivery Method Room Air 08/25/24 16:15 Temperature 98.4 F Temperature Source Pulse Rate 81 Pulse Rate [Right] Respiratory Rate 15 Blood Pressure 133/85 Blood Pressure [Right Arm] Blood Pressure Mean [Right Arm] Blood Pressure Source [Right Arm] Blood Pressure Position [Right Arm] 02 Sat by Pulse Oximetry Oxygen Delivery Method Room Air Lab Data Lab Results 08/25/24 14:14: WBC 10.4, RBC 5.50, Hgb 16.7, Hct 49.8, MCV 90.5, MCH 30.4, MCHC 33.5, RDW 13.3, Plt Count 190, MPV 10.4, Neut % (Auto) 61.2, Lymph % (Auto) 28.2, [place] % (Auto) 7.9, Eos % (Auto) 1.4, Baso % (Auto) 0.8, Neut # (Auto) 6.4, Lymph # (Auto) 2.9, [place] # (Auto) 0.8, Eos # (Auto) 0.2, Baso # (Auto) 0.1, ESR 6, Sodium 136, Potassium 4.2, Chloride 100, Carbon Dioxide 25, Anion Gap 15.2 H, BUN 12, Creatinine 0.90, Estimated Creat Clear 170, Estimated GFR 88, Est GFR ( Amer) 106, Glucose 172 H, Calcium 9.6, Total Bilirubin 0.8, AST 28, ALT 26, Alkaline Phosphatase 67, C-Reactive Protein 37.4 H, Total Protein 8.2, Albumin 4.6, Globulin 3.6 H, Albumin/Globulin Ratio 1.3, HCV Ab SEAN w/Rflx PCR Qn Negative, HIV Ag/Ab Combo Qual Negative 08/25/24 14:14 08/25/24 14:14 Orders (Tests/Meds): ORDERS Category Date Time Status Foot XR right 2 views [XR foot RT 2V] Stat Exams 08/25/24 14:20 Completed CBC w/Auto Diff [Complete Blood Count Auto Diff] Stat Lab 08/25/24 14:14 Completed CMP [Comprehensive Metabolic Panel] Stat Lab 08/25/24 14:14 Completed CRP [C-Reactive Protein] Stat Lab 08/25/24 14:14 Completed ESR [Erythrocyte Sedimentation Rate] Stat Lab 08/25/24 14:14 Completed HIV Combo Stat Lab 08/25/24 14:14 Completed Hepatitis C Ab Qual. W/ RFX Stat Lab 08/25/24 14:14 Completed Medical Decision Narrative: Humberto Goodman is a 53y male with a history of diabetes mellitus on [place], tobacco use, COPD, hypertension who presents to the emergency department for complaints of a wound to his right foot. Patient states that over last 2 weeks, he has had an ulcerating wound at the base of his right first toe on the lateral aspect that has gotten bigger and increase in redness. He notes that he has numbness and tingling in his feet at baseline but does not report any significant pain. He reports has been draining a small amount of fluid today. He denies any fevers. He states that nothing like this is ever happened before. He notes that his blood sugar tends to run high at home between 200-400. On arrival, patient is hypertensive but not tachycardic, afebrile, breathing comfortable on room air. On physical exam, he is overall well appearing and non-toxic. He has an ulcerative wound to the base of the first MTP joint on the lateral aspect of the first with surrounding callous and erythema. No acitve drainage. 1+ DP and PT pulses present. Differential diagnosis includes but is not limited to: osteomyelitis, cellulitis, abscess, chronic ulcer from diabetic peripheral neuropathy, among others. Workup in the ED included: left foot xrays, ESR, CRP, CBC, CMP. Xrays were interpreted by me personally and demonstrated no fractures, dislocations, or bony erosions. See radiology report for details. Lababoratory studies demonstrated milyly elevated CRP but normal ESR and no leukocytosos. CMP unmrearkable and non-actionable. Given this, it is felt that patient has a chronic ulcerative wound from his diabetic peripheral neuropathy and now has cullulitis at this location. He is being sent with a prescription for Keflex with plan to follow up with his PCP on as scheduled. All quesitons were answered. He demonstrated understanding and was in agreement with this plan. He was then discharged from the ED in stable condition. Critical Care Critical Care Time Critical Care Time: No
[2024-08-25 14:25] LABS: Basophils # 0.1 K/mm3 (0-0.2); Basophils % 0.8 % (0.1-2.0); Eosinophils # 0.2 K/mm3 (0.0-0.4); Eosinophils % 1.4 % (0.1-12.0); Hematocrit 49.8 % (42.0-52.0); Hemoglobin 16.7 g/dL (14.1-18.0); Lymphocytes # 2.9 K/mm3 (0.7-4.5); Lymphocytes % 28.2 % (10-50); Mean Corpuscular HGB Conc 33.5 g/dL (31.8-35.4); Mean Corpuscular Hemoglobin 30.4 pg (27.0-31.2); Mean Corpuscular Volume 90.5 fl (80-94); Mean Platelet Volume 10.4 fl (7.4-10.4); Monocytes # 0.8 K/mm3 (0.1-1.0); Monocytes % 7.9 % (1.7-9.3); Neutrophils # 6.4 K/mm3 (1.8-7.8); Neutrophils % 61.2 % (37.0-80.0); Platelet Count 190 K/mm3 (142-424); Red Cell Distribution Width 13.3 % (11.5-17.5); White Blood Count 10.4 K/mm3 (4.8-10.8)
[2024-08-25 14:56] LABS: Albumin Level 4.6 g/dl (3.5-5.0); Chloride 100 mmol/L (98-107); Potassium 4.2 mmoL/L (3.5-5.1); Sodium 136 mmol/L (136-145)
[2024-08-25 14:59] LABS: Alanine Aminotransferase 26 U/L (12-78); Albumin/Globulin Ratio 1.3 (1.1-1.8); Alkaline Phosphatase 67 U/L (38-126); Anion Gap 15.2 mEq/L (5-15); Aspartate Amino Transferase 28 U/L (17-59); Bilirubin,Total 0.8 mg/dl (0.2-1.3); Blood Urea Nitrogen 12 mg/dl (9-20); Calcium 9.6 mg/dl (8.4-10.2); Carbon Dioxide 25 mmol/L (22.0-30.0); Creatinine Clearance Estimated 170 mL/min (50-200); Estimated Glomerular Filt Rate 88 ml/min (>60); GFR (African American) 106 ML/MIN (>60); Globulin 3.6 g/dL (1.3-3.2); Glucose 172 mg/dl (74-100); Total Protein,Serum 8.2 g/dl (6.3-8.2)
[2024-08-25 15:00] VITALS: BP 161/95; PULSE 77; O2SAT 94
[2024-08-25 15:05] LABS: C-Reactive Protein 37.4 mg/L (0-4)
[2024-08-25 15:30] VITALS: BP 136/89; PULSE 71; O2SAT 95
[2024-08-25 15:43] LABS: HIV Combo NEGATIVE (Negative)
[2024-08-25 15:50] LABS: Hepatitis C Ab Qual. W/ RFX NEGATIVE (Negative)
[2024-08-25 16:15] VITALS: BP 133/85; PULSE 81; RESP 15; TEMP 36.9; O2SAT 95
[2024-08-25 17:51] LABS: Erythrocyte Sedimentation Rate 6 mm/hr (0-20)
== END 2024-08-25 16:17 | disposition home or self-care (01) ==
PROVIDERS: Emergency Provider Student in an Organized Health Care Education/Training Program; PCP Nurse Practitioner Family
DX: L03.116 Cellulitis of left lower limb (principal); L97.529 Non-pressure chronic ulcer of other part of left foot with unspecified severity
CPT/HCPCS: 73620; 80053; 85025; 85651; 86140; 86803; 87389; 99284

== ENCOUNTER 2024-09-11 13:54 | Outpatient (CLI) | payer MEDICARE, SELFPAY | END 2024-09-11 23:59 | disposition home or self-care (01) | LOC: LAB.DROPOF 09-12 09:59 | PROVIDERS: PCP Nurse Practitioner; Visit Provider Nurse Practitioner | DX: E11.621 Type 2 diabetes mellitus with foot ulcer (principal); L97.519 Non-pressure chronic ulcer of other part of right foot with unspecified severity | CPT/HCPCS: 87070; 87106; 87205 ==

== ENCOUNTER 2024-09-21 14:52 | Emergency (ER) | payer MEDICARE, SELFPAY ==
[2024-09-21] VITALS (7 sets, daily range): BP systolic 124–163; BP diastolic 74–101; PULSE 109–124; RESP 18–21; TEMP 36.9; O2SAT 93–97; BMI 31.4
--- NOTE | 2024-09-21 14:58 | ECG_ITS ---
APPROVED REPORT Exam: Resting ECG HR:122 bpm ECG Measurements Heart Rate 122 AXES WI 167 P 37 QRSd 91 QRS -50 QT 342 T 59 QTc 415 Conclusion SINUS TACHYCARDIA PATTERN CONSISTENT WITH PULMONARY DISEASE LEFT ANTERIOR FASCICULAR BLOCK [QRS AXIS <= -45, QR IN I, RS IN II] Electronically signed by : CORONA BURGER, 09/21/2024 23:28:06
--- NOTE | 2024-09-21 15:09 | XR_ITS ---
PROCEDURE INFORMATION: Exam: XR Chest Exam date and time: 09/21/2024 3:17 PM Age: 53 years old Clinical indication: Tachypnea; Additional info: Increased hr TECHNIQUE: Imaging protocol: Radiologic exam of the chest. Views: 1 view. Total images: 1 COMPARISON: CR XR CHEST AP 03/16/2024 2:31 PM FINDINGS: Lungs: Atelectatic and/or early infiltrative changes noted within both lung bases. Pleural spaces: Unremarkable. No pleural effusion. No pneumothorax. Heart/Mediastinum: The heart is not enlarged. Bones/joints: Unremarkable. IMPRESSION: Atelectatic and/or early infiltrative changes noted within both lung bases.
--- NOTE | 2024-09-21 15:10 | PC.NURSE ---
POC Glucose 242
--- NOTE | 2024-09-21 15:18 | ED_ITS ---
Discharge Plan Disposition Patient Disposition: Home, Self-Care Condition: Fair Prescriptions Prescriptions: New [place] DVT-PE Treat 30D Start 5 mg (74 tabs) tablets,dose pack 5 mg PO BID 30 Days Qty: 60 0RF Discontinued clopidogrel 75 mg tablet See Rx Instructions .ROUTE .COMPLEX Qty: 90 3RF Dose Instruction: Take 1 tablet by mouth once daily Rx Instructions: Take 1 tablet by mouth once daily aspirin 81 MG tablet,delayed release (DR/EC) 81 mg PO DAILY No Action doxycycline hyclate 100 mg capsule 100 mg PO BID 14 Days Qty: 28 0RF ammonium lactate 12 % cream 1 applic topical BID 30 Days Qty: 385 2RF mupirocin 2 % ointment 1 applic topical BID 14 Days Qty: 22 1RF fluconazole 150 mg tablet 150 mg PO Q3D Qty: 2 0RF Rx Instructions: may repeat second dose 72 hrs after first dose. hydroxyzine pamoate [Vistaril] 25 mg capsule 25 mg PO HS PRN (Reason: Insomnia, anxiety) Rx Instructions: 25 or 50 mg p.o. nightly have an hour before bedtime Jardiance 10 mg tablet 10 mg PO DAILY Patient Comments: TAKE 1 TABLET BY MOUTH ONCE DAILY IN THE MORNING Ozempic 1 mg/dose (4 mg/3 mL) pen injector 1 mg SQ WEEKLY Patient Comments: INJECT 1MG SUBCUTANEOUSLY ONCE A WEEK nadolol 80 mg tablet See Rx Instructions .ROUTE .COMPLEX Qty: 180 4RF Dose Instruction: Take 1 tablet by mouth twice daily Rx Instructions: Take 1 tablet by mouth twice daily valsartan 320 mg tablet See Rx Instructions .ROUTE .COMPLEX Qty: 90 3RF Dose Instruction: TAKE 1 TABLET BY MOUTH ONCE DAILY FOR HIGH BLOOD PRESSURE Rx Instructions: TAKE 1 TABLET BY MOUTH ONCE DAILY FOR HIGH BLOOD PRESSURE digoxin 250 mcg (0.25 mg) tablet 250 mcg PO DAILY Qty: 90 3RF Stiolto Respimat 2.5-2.5 mcg/actuation mist 2 puff inhalation DAILY 90 Days Qty: 4 2RF ranolazine 500 mg tablet extended release 12 hr 500 mg PO BID Qty: 180 1RF Repatha SureClick 140 mg/mL pen injector 140 mg SQ Q2W Qty: 2 5RF albuterol sulfate 90 mcg/actuation HFA aerosol inhaler 2 inh inhalation QID PRN (Reason: shortness of breath or wheezing) 90 Days Qty: 8.5 2RF isosorbide mononitrate 30 mg tablet extended release 24 hr See Rx Instructions .ROUTE .COMPLEX Qty: 180 3RF Dose Instruction: Take 2 tablets by mouth once daily Rx Instructions: Take 2 tablets by mouth once daily atorvastatin 80 mg tablet See Rx Instructions .ROUTE .COMPLEX Qty: 90 3RF Dose Instruction: TAKE 1 TABLET BY MOUTH AT BEDTIME NIGHTLY Rx Instructions: TAKE 1 TABLET BY MOUTH AT BEDTIME NIGHTLY hydrochlorothiazide 25 mg tablet See Rx Instructions .ROUTE .COMPLEX Qty: 90 3RF Dose Instruction: Take 1 tablet by mouth once daily Rx Instructions: Take 1 tablet by mouth once daily metformin 1,000 MG tablet 1,000 mg PO BID nitroglycerin 0.4 mg tablet, sublingual 0.4 mg sublingual Q5M PRN (Reason: chest pain) Qty: 30 0RF Rx Instructions: do not exceed 3 doses per episode cephalexin 500 mg capsule 500 mg PO QID 7 Days Qty: 28 0RF Referrals Follow up/Referrals: Lisa Hannah APRN [Primary Care Provider] - See instructions Activity Restrictions/Add. Instructions Additional Instructions/Restrictions: As we discussed, your workup shows that you have a blood clot to your lung. I have written a prescription for a blood thinner called Eliquis. Please follow- up with cardiology, I have placed a referral. I have written you for 30 days of this medication but you will need to see your commercial lines account manager as soon as you can to discuss ongoing treatment. Please discontinue your aspirin and your Plavix. Please return with any new or worsening symptoms, particularly worsening shortness of breath, chest pain, passing out, or any other concerning symptoms. Clinical Impressions Clinical Impression: Pulmonary embolism Qualifiers: Pulmonary embolism type: single subsegmental (without acute cor pulmonale) Q ualified Code(s): I26.93 - Single subsegmental thrombotic pulmonary embolism without acute cor pulmonale Instructions Patient Instructions: Pulmonary Embolism, DI for Pulmonary Embolism Print Language Print Language: Uzbek Discharge ED Provider: Florentino Spears Adult HPI General Chief complaint: Arrhythmia/Palpitations Stated complaint: Increase BP/Pluse, Light-headed Time Seen by Provider: 09/21/24 15:18 Mode of Arrival: Ambulatory Source of Information: Patient Description of Symptoms (Recalled from ER Triage Doc. by RN): PT REPORTS INCREASED HEART RATE THAT BEGAN ABOUT 1330 TODAY, PT STATES HE FFELS OFF REPORTS SHORTNESS OF BREATH, DIZZINESS AND HEADACHE AT ONSET OF SYMPTOMS. DENIES PAIN, DENIES N/V. CURRENTLY RECEIVING TREATMENT FOR WOUND ON RIGHT FOOT History of Present Illness HPI narrative: Patient reports tachycardia, shortness of breath, acute in onset starting today, no associated pleuritic component, no leg pain or leg swelling. Patient has had recent foot infection for which she is wearing a boot. Denies any family or personal history of DVT or PE although does describe history of CAD. No changes in medications or new medications. Patient is a smoker. Denies any headache for me at this time. Denies any abdominal pain. Please note that above description of symptoms, in this electronic medical record under categorization of recalled from ER triage doctor by RN are reflective of an initial nursing assessment, however, is not reflective of my full history and physical exam that was personally taken and clarified. Consequentially, this preceding description of symptoms, which may include the patient's categorized chief complaint in the EMR, do not reflect my personal clinical impression, and the ultimate description of history of present illness and patient stated complaints should be deferred to this section of the note. Unless stated otherwise or congruent with this section of the note, additional signs, symptoms, or incongruence should be interpreted as inaccurate with my clinical impression. Related Data Home Medications ?Medication ?Instructions ?Recorded ?Confirmed hydroxyzine pamoate 25 mg capsule 25 mg PO HS PRN Insomnia, anxiety 12/05/22 09/18/24 (Vistaril) empagliflozin 10 mg tablet 10 mg PO DAILY Diabetes 02/14/23 09/18/24 (Jardiance) semaglutide 1 mg/dose (4 mg/3 mL) 1 mg SQ WEEKLY Diabetes 02/14/23 09/18/24 subcutaneous pen injector (Ozempic) metformin 1,000 mg tablet 1,000 mg PO BID Diabetes 02/23/23 09/18/24 Previous Rx's ?Medication ?Instructions ?Recorded nitroglycerin 0.4 mg sublingual 0.4 mg sublingual Q5M PRN chest 06/12/23 tablet pain #30 tabs nadolol 80 mg tablet See Rx Instructions .Route 06/14/23 .COMPLEX #180 tabs valsartan 320 mg tablet See Rx Instructions .Route 10/09/23 .COMPLEX #90 tabs digoxin 250 mcg (0.25 mg) tablet 250 mcg PO DAILY #90 tabs 10/19/23 tiotropium 2.5 mcg-olodaterol 2.5 2 puff inhalation DAILY 90 days #4 12/18/23 mcg/actuation mist for inhalation grams (Stiolto Respimat) ranolazine 500 mg tablet,extended 500 mg PO BID #180 tabs 01/09/24 release,12 hr evolocumab 140 mg/mL subcutaneous 140 mg SQ Q2W #2 mL 03/20/24 pen injector (Repatha SureClick) albuterol sulfate 90 mcg/actuation 2 inh inhalation QID PRN shortness 04/02/24 aerosol inhaler of breath or wheezing 90 days #8.5 grams isosorbide mononitrate 30 mg See Rx Instructions .Route 07/01/24 tablet,extended release 24 hr .COMPLEX #180 tabs atorvastatin 80 mg tablet See Rx Instructions .Route 07/08/24 .COMPLEX #90 tabs hydrochlorothiazide 25 mg tablet See Rx Instructions .Route 07/08/24 .COMPLEX #90 tabs cephalexin 500 mg capsule 500 mg PO QID 7 days #28 caps 08/25/24 ammonium lactate 12 % topical cream 1 applic topical BID dry skin, 09/11/24 callus care 30 days #385 grams doxycycline hyclate 100 mg capsule 100 mg PO BID infection 14 days 09/11/24 #28 caps mupirocin 2 % topical ointment 1 applic topical BID infection 14 09/11/24 days #22 grams fluconazole 150 mg tablet 150 mg PO Q3D yeast 2 doses #2 tabs 09/13/24 apixaban 5 mg (74 tabs) tablets in 5 mg PO BID 30 days #60 tabs 09/21/24 a dose pack (Eliquis DVT-PE Treat 30D Start) Allergies Allergy/AdvReac Type Severity Reaction Status Date / Time No Known Allergies Allergy Verified 09/18/24 11:05 [facility] Disclaimer: The information contained in this section may have been updated after the patient was seen, as this information can be updated by other users. Medical History Serum digoxin level below therapeutic range Encounter for screening for malignant neoplasm of lung COPD mixed type Mediastinal lymphadenopathy Hilar lymphadenopathy Smoking greater than 30 pack years Dyspnea on exertion Anxiety disorder Angina pectoris Diastolic CHF, chronic Systolic congestive heart failure Congestive heart failure with LV diastolic dysfunction, NYHA class 3 Cardiomyopathy, ischemic HTN (hypertension) Dyspnea Type 2 diabetes mellitus with hyperglycemia Diabetes PRIYA (obstructive sleep apnea) Right bundle branch block (RBBB) determined by electrocardiography CAD (coronary artery disease) HLD (hyperlipidemia) Restless sleeper Non-STEMI (non-ST elevated myocardial infarction) Surgical History History of heart artery stent History of surgery on upper extremity Family History Other Diabetes Social History Smoking Status: Current every day smoker tobacco type: cigarettes packs per day: 2 alcohol intake: never substance use type: denies use current occupational status: disabled Travel in the last 8 weeks: None household members: significant other housing: house marital status: single current occupation: [employer] current occupational exposures/hazards: No Have you lived/traveled outside [place] in past 30 days?: No Contact w/someone who lives/traveled outside [place] past 30 days?: No Exposure to someone with infectious disease in past 14 days?: No Do you have a fever (greater than 100.4 F or 38 C)?: No Have you tested positive for COVID-19: No Exposed to someone with COVID-19 in past 14 days?: No Do you have a sore throat?: No Do you have a cough?: No Do you have any weakness?: No Do you have any diarrhea?: No Are you experiencing any unusual bleeding?: No Do you have any muscle aches/pain?: No Do you have any abdominal pain?: No Are you experiencing loss of taste or smell?: No Other Medical History Have you received the Flu Vaccine for this season: No Have you received the Pneumonia Vaccine: No ROS Obtained: Yes other As per HPI Physical Exam General General appearance: alert and in no apparent distress Head Head exam: atraumatic and normocephalic Eye Eye exam: Present normal appearance Neck Neck exam: Present normal inspection Chest Chest inspection: Present normal inspection and symmetric chest wall rise Respiratory Respiratory exam: Present normal lung sounds bilaterally; Absent respiratory distress Cardiovascular Cardiovascular exam: Present normal rhythm and tachycardia Abdominal Exam Abdominal exam: Present soft Neurological Exam Neurological exam: Present alert and oriented X3 Psychiatric Psychiatric exam: Present normal affect and normal mood Skin Skin exam: Present warm and dry Medical Decision Making Medical Records Medical records reviewed: Yes I reviewed the patient's medical records. Screening: Per USPSTF and CDC recommendations, given the prevalence of disease in our region, it is our hospital?s policy to screen for HIV and viral Hepatitis for all patients aged 18 and over and those with ongoing risk factors. [place] Inquiry Pt receiving controlled substance: No Vital Signs: 09/21/24 15:00 09/21/24 15:02 09/21/24 15:30 Temperature 98.4 F Temperature Source Oral Pulse Rate 120 H 116 H Pulse Rate [Apical] 124 H Respiratory Rate 18 18 21 Blood Pressure 139/83 144/85 H Blood Pressure [Right Arm] 163/101 H Blood Pressure Mean [Right Arm] 121 Blood Pressure Source [Right Arm] Automatic Cuff Blood Pressure Position [Right Arm] Sitting 02 Sat by Pulse Oximetry 93 L 95 95 Oxygen Delivery Method Room Air Room Air Room Air 09/21/24 16:00 09/21/24 16:30 09/21/24 17:00 Temperature Temperature Source Pulse Rate 115 H 109 H 109 H Pulse Rate [Apical] Respiratory Rate Blood Pressure 129/74 146/93 H 124/83 Blood Pressure [Right Arm] Blood Pressure Mean [Right Arm] Blood Pressure Source [Right Arm] Blood Pressure Position [Right Arm] 02 Sat by Pulse Oximetry 97 97 94 L Oxygen Delivery Method Room Air Room Air Room Air 09/21/24 17:12 Temperature 98.4 F Temperature Source Pulse Rate 110 H Pulse Rate [Apical] Respiratory Rate 18 Blood Pressure 124/83 Blood Pressure [Right Arm] Blood Pressure Mean [Right Arm] Blood Pressure Source [Right Arm] Blood Pressure Position [Right Arm] 02 Sat by Pulse Oximetry Oxygen Delivery Method Lab Data Lab Results 09/21/24 15:06: WBC 9.3, RBC 5.47, Hgb 16.3, Hct 48.3, MCV 88.3, MCH 29.8, MCHC 33.7, RDW 12.9, Plt Count 214, MPV 10.4, Neut % (Auto) 67.0, Lymph % (Auto) 23.6, Banks % (Auto) 7.4, Eos % (Auto) 1.2, Baso % (Auto) 0.6, Neut # (Auto) 6.2, Lymph # (Auto) 2.2, Banks # (Auto) 0.7, Eos # (Auto) 0.1, Baso # (Auto) 0.1, Sodium 136, Potassium 3.6, Chloride 98, Carbon Dioxide 25, Anion Gap 16.6 H, BUN 9, Creatinine 0.90, Estimated Creat Clear 158, Estimated GFR 88, Est GFR ( Amer) 106, Glucose 269 H, Calcium 8.9, Magnesium 1.9, Total Bilirubin 0.7, AST 36, ALT 31, Alkaline Phosphatase 75, Troponin I < 0.01, Total Protein 8.0, Albumin 4.2, Globulin 3.8 H, Albumin/Globulin Ratio 1.1, TSH 1.41, Thyroxine (T4) 8.1, Digoxin 0.70 09/21/24 15:06 09/21/24 15:06 Orders (Tests/Meds): ED MEDICATIONS Discontinued Medications Generic Name Dose Route Start Last Admin Trade Name Freq PRN Reason Stop Dose Admin Lactated Ringer's 1,000 mls @ 999 mls/hr 09/21/24 16:15 09/21/24 16:19 Lactated Ringer's 1000 Ml Bag IV 09/21/24 17:15 999 mls/hr .Q1H1M ONE Administration Iopamidol 70 ml 09/21/24 15:56 09/21/24 15:57 Iopamidol-370 (76%);100ml Bottle IV 09/21/24 15:57 70 ml ONCE ONE Administration Sodium Chloride 10 ml 09/21/24 15:56 09/21/24 15:57 Sodium Chloride 0.9% 10ml Syr (Rad Only) IV 10/21/24 15:55 10 ml NEEDED PRN Administration Maintain IV Site Sodium Chloride 50 ml 09/21/24 15:56 09/21/24 15:57 0.9 % Sodium Chloride 50 Ml Vial IV 09/21/24 15:57 50 ml ONCE ONE Administration ORDERS Category Date Time Status CTA Chest [CT angio chest PE protocol] Stat Cat Scan 09/21/24 15:31 Completed POCUS Point of Care (ER Only) Stat Exams 09/21/24 16:32 Taken XR chest portable Stat Exams 09/21/24 15:09 Completed Complete Blood Count Auto Diff Stat Lab 09/21/24 15:06 Completed Comprehensive Metabolic Panel Stat Lab 09/21/24 15:06 Completed Digoxin Stat Lab 09/21/24 15:06 Completed MAG [Magnesium] Stat Lab 09/21/24 15:06 Completed POC Glucose,Bedside Stat Lab 09/21/24 15:10 Ordered T4 (Thyroxine) Stat Lab 09/21/24 15:06 Completed Thyroid Stimulating Hormone Stat Lab 09/21/24 15:06 Completed Troponin I Stat Lab 09/21/24 15:06 Completed Medical Decision Narrative: Patient with history and exam per above presenting for evaluation of fatigue, tachycardia, shortness of breath Diagnoses considered include ACS, PE, pneumonia, among others ED workup and treatment included: ED MEDICATIONS Discontinued Medications Generic Name Dose Route Start Last Admin Trade Name Freq PRN Reason Stop Dose Admin Lactated Ringer's 1,000 mls @ 999 mls/hr 09/21/24 16:15 09/21/24 16:19 Lactated Ringer's 1000 Ml Bag IV 09/21/24 17:15 999 mls/hr .Q1H1M ONE Administration Iopamidol 70 ml 09/21/24 15:56 09/21/24 15:57 Iopamidol-370 (76%);100ml Bottle IV 09/21/24 15:57 70 ml ONCE ONE Administration Sodium Chloride 10 ml 09/21/24 15:56 09/21/24 15:57 Sodium Chloride 0.9% 10ml Syr (Rad Only) IV 10/21/24 15:55 10 ml NEEDED PRN Administration Maintain IV Site Sodium Chloride 50 ml 09/21/24 15:56 09/21/24 15:57 0.9 % Sodium Chloride 50 Ml Vial IV 09/21/24 15:57 50 ml ONCE ONE Administration ORDERS Category Date Time Status CTA Chest [CT angio chest PE protocol] Stat Cat Scan 09/21/24 15:31 Completed POCUS Point of Care (ER Only) Stat Exams 09/21/24 16:32 Taken XR chest portable Stat Exams 09/21/24 15:09 Completed Complete Blood Count Auto Diff Stat Lab 09/21/24 15:06 Completed Comprehensive Metabolic Panel Stat Lab 09/21/24 15:06 Completed Digoxin Stat Lab 09/21/24 15:06 Completed MAG [Magnesium] Stat Lab 09/21/24 15:06 Completed POC Glucose,Bedside Stat Lab 09/21/24 15:10 Ordered T4 (Thyroxine) Stat Lab 09/21/24 15:06 Completed Thyroid Stimulating Hormone Stat Lab 09/21/24 15:06 Completed Troponin I Stat Lab 09/21/24 15:06 Completed Labs were independently interpreted by me, significant for no acute findings Imaging was independently visualized and interpreted by me, significant for subsegmental pulmonary embolism Please refer to radiology report for full details. Tachycardia decreased upon repeat evaluation. After shared decision making and in light of clinical picture at this time, patient is deemed stable for discharge with initiation of DOAC and expeditious outpatient follow-up. Patient was counseled extensively on his diagnosis including risks and warning symptoms that would require further evaluation. He and family member at bedside were able to voice back and understanding and I answered all follow-up questions. The patient was advised that persistent or worsening symptoms require further evaluation. Critical Care Critical Care Time Critical Care Time: No
[2024-09-21 15:21] LABS: Basophils # 0.1 K/mm3 (0-0.2); Basophils % 0.6 % (0.1-2.0); Chloride 98 mmol/L (98-107); Eosinophils # 0.1 K/mm3 (0.0-0.4); Eosinophils % 1.2 % (0.1-12.0); Hematocrit 48.3 % (42.0-52.0); Hemoglobin 16.3 g/dL (14.1-18.0); Lymphocytes # 2.2 K/mm3 (0.7-4.5); Lymphocytes % 23.6 % (10-50); Mean Corpuscular HGB Conc 33.7 g/dL (31.8-35.4); Mean Corpuscular Hemoglobin 29.8 pg (27.0-31.2); Mean Corpuscular Volume 88.3 fl (80-94); Mean Platelet Volume 10.4 fl (7.4-10.4); Monocytes # 0.7 K/mm3 (0.1-1.0); Monocytes % 7.4 % (1.7-9.3); Neutrophils # 6.2 K/mm3 (1.8-7.8); Nucleated Red Blood Cells # 0 10^3/uL; Nucleated Red Blood Cells % 0 %; Platelet Count 214 K/mm3 (142-424); Red Blood Count 5.47 M/mm3 (4.60-6.20); Red Cell Distribution Width 12.9 % (11.5-17.5); Red Cell Distribution Width-SD 42.3 fL; White Blood Count 9.3 K/mm3 (4.8-10.8)
[2024-09-21 15:22] LABS: Albumin Level 4.2 g/dl (3.5-5.0); Potassium 3.6 mmoL/L (3.5-5.1); Sodium 136 mmol/L (136-145)
[2024-09-21 15:24] LABS: Alanine Aminotransferase 31 U/L (12-78); Anion Gap 16.6 mEq/L (5-15); Aspartate Amino Transferase 36 U/L (17-59); Blood Urea Nitrogen 9 mg/dl (9-20); Carbon Dioxide 25 mmol/L (22.0-30.0); Creatinine Clearance Estimated 158 mL/min (50-200); Estimated Glomerular Filt Rate 88 ml/min (>60); GFR (African American) 106 ML/MIN (>60)
[2024-09-21 15:25] LABS: Albumin/Globulin Ratio 1.1 (1.1-1.8); Alkaline Phosphatase 75 U/L (38-126); Bilirubin,Total 0.7 mg/dl (0.2-1.3); Calcium 8.9 mg/dl (8.4-10.2); Globulin 3.8 g/dL (1.3-3.2); Glucose 269 mg/dl (74-100)
--- NOTE | 2024-09-21 15:25 | PC.NURSE ---
DR BURGER AT BEDSIDE
--- NOTE | 2024-09-21 15:31 | CT_ITS ---
PROCEDURE INFORMATION: Exam: CTA Chest With Contrast Exam date and time: 09/21/2024 3:54 PM Age: 53 years old Clinical indication: Tachypnea; Additional info: Acute onset tachycardia TECHNIQUE: Imaging protocol: Computed tomographic angiography of the chest with contrast. Exam focused on the arteries. 3D rendering (Not supervised by radiologist): MIP and/or 3D reconstructed images were created by the technologist. Total images: 939 Radiation optimization: All CT scans at this facility use at least one of these dose optimization techniques: automated exposure control; mA and/or kV adjustment per patient size (includes targeted exams where dose is matched to clinical indication); or iterative reconstruction. Contrast material: ISOVUE 370; Contrast volume: 70 ml; Contrast route: INTRAVENOUS (IV); COMPARISON: CT ANGIO CHEST PE PROTOCOL 12/08/2022 5:48 PM FINDINGS: Pulmonary arteries: Filling defect is present within the subsegmental pulmonary artery to the left lower lobe (series 5, image 70). No other pulmonary artery filling defects are present as imaged. Aorta: No evidence of aortic aneurysm or dissection. Tortuosity of the thoracic aorta. Lungs: Atelectatic changes noted within both lung bases. No focal pneumonia. Pleural spaces: Unremarkable. No pneumothorax. No pleural effusion. Heart: No evidence of right heart strain. Coronary arteries: There is moderate atherosclerotic calcification of the coronary arteries. Lymph nodes: No mediastinal or axillary lymphadenopathy. Bones/joints: The thoracic spine demonstrates mild degenerative changes at multiple levels. Soft tissues: Unremarkable. IMPRESSION: 1. Filling defect present within the pulmonary artery left lower lobe consistent with pulmonary embolism. 2. No evidence of right heart strain. 3. No evidence of aortic aneurysm or dissection. 4. Atelectatic changes noted within both lung bases. 5. No focal pneumonia. 6. No mediastinal or axillary lymphadenopathy.
[2024-09-21 15:38] LABS: Troponin I < 0.01 ng/ml (0.00-0.034)
[2024-09-21 15:42] LABS: T4 (Thyroxine) 8.1 ug/dl (5.53-11.0)
[2024-09-21 15:47] LABS: Magnesium 1.9 mg/dl (1.6-2.3)
[2024-09-21 15:56] LABS: Thyroid Stimulating Hormone 1.41 uIU/mL (0.465-4.68)
[2024-09-21] MEDS: IOPAMIDOL-370 (76%);100ML BOTTLE 70 ML IV (15:57)
[2024-09-21] MEDS: 0.9 % SODIUM CHLORIDE 50 ML VIAL IV (15:57)
[2024-09-21] MEDS: SODIUM CHLORIDE 0.9% 10ML SYR (RAD ONLY) 10 ML IV (15:57)
[2024-09-21] MEDS: LACTATED RINGERS 1000ML 1,000 ML 999 ML IV (16:19)
--- NOTE | 2024-09-21 16:35 | PC.NURSE ---
fluids stopped per verbal order from md see
== END 2024-09-21 17:20 | disposition home or self-care (01) ==
PROVIDERS: Emergency Provider Emergency Medicine; PCP Nurse Practitioner Family
DX: I26.93 Single subsegmental thrombotic pulmonary embolism without acute cor pulmonale (principal); R06.02 Shortness of breath; R00.0 Tachycardia, unspecified
CPT/HCPCS: 71045; 71275; 80053; 80162; 83735; 84436; 84443; 84484; 85025; 93005; 96360; 99285; J7120; Q9967

== ENCOUNTER 2024-10-03 15:38 | Outpatient (CLI) | payer MEDICARE, SELFPAY ==
[2024-10-03 16:41] LABS: D-Dimer 0.84 ug/mL (0.0-0.5)
== END 2024-10-03 23:59 | disposition home or self-care (01) ==
LOC: LAB 15:39
PROVIDERS: PCP Nurse Practitioner Family; Visit Provider Internal Medicine Pulmonary Disease
DX: I26.93 Single subsegmental thrombotic pulmonary embolism without acute cor pulmonale (principal)
CPT/HCPCS: 36415; 85378

== ENCOUNTER 2024-12-04 16:08 | Outpatient (CLI) | payer MEDICARE, SELFPAY ==
--- NOTE | 2024-12-04 16:26 | XR_ITS ---
FINAL REPORT CLINICAL HISTORY: foot pain FINDINGS: Three views show no evidence of acute displaced fracture or dislocation of the visualized bony architecture. The joint spaces appear normal. IMPRESSION: Unremarkable exam. Reviewed, Interpreted and Dictated by Caridad Puente MD Transcribed by Cha Mendez Authenticated and [facility]
--- NOTE | 2024-12-04 16:26 | XR_ITS ---
FINAL REPORT CLINICAL HISTORY: Diabetic Foot Ulcer FINDINGS: Three views show no evidence of acute displaced fracture or dislocation of the visualized bony architecture. The joint spaces appear normal. IMPRESSION: Unremarkable exam. Reviewed, Interpreted and Dictated by Caridad Puente MD Transcribed by Cha Mendez Authenticated and [facility]
[2024-12-04 17:04] LABS: Basophils # 0.1 K/mm3 (0-0.2); Basophils % 0.9 % (0.1-2.0); Eosinophils # 0.2 Kmm3 (0.0-0.4); Eosinophils % 1.8 % (0.1-12.0); Hematocrit 47.8 % (42.0-52.0); Hemoglobin 15.8 g/dL (14.1-18.0); Immature Granulocytes # 0.07 10^3uL; Immature Granulocytes % 0.6 %; Lymphocytes # 3.4 K/mm3 (0.7-4.5); Lymphocytes % 28.6 % (10-50); Mean Corpuscular HGB Conc 33.1 g/dL (31.8-35.4); Mean Corpuscular Hemoglobin 29.8 pg (27.0-31.2); Mean Corpuscular Volume 90.2 fl (80-94); Monocytes % 8.9 % (1.7-9.3); Neutrophils # 6.9 K/mm3 (1.8-7.8); Neutrophils % 59.2 % (37.0-80.0); Nucleated Red Blood Cells # 0 10^3/uL; Nucleated Red Blood Cells % 0 %; Platelet Count 233 K/mm3 (142-424); Red Cell Distribution Width 14.7 % (11.5-17.5); Red Cell Distribution Width-SD 48.5 fL; White Blood Count 11.7 K/mm3 (4.8-10.8)
[2024-12-04 17:25] LABS: Erythrocyte Sedimentation Rate 12 mm/hr (0-20)
[2024-12-04 17:27] LABS: Albumin Level 4.2 g/dl (3.5-5.0); Chloride 96 mmol/L (98-107); Potassium 5.2 mmoL/L (3.5-5.1); Sodium 133 mmol/L (136-145)
[2024-12-04 17:29] LABS: Blood Urea Nitrogen 21 mg/dl (9-20)
[2024-12-04 17:30] LABS: Alanine Aminotransferase 20 U/L (12-78); Albumin/Globulin Ratio 1.4 (1.1-1.8); Alkaline Phosphatase 56 U/L (38-126); Anion Gap 16.2 mEq/L (5-15); Aspartate Amino Transferase 23 U/L (17-59); Bilirubin,Total 0.5 mg/dl (0.2-1.3); Calcium 9.4 mg/dl (8.4-10.2); Carbon Dioxide 26 mmol/L (22.0-30.0); Estimated Glomerular Filt Rate 88 ml/min (>60); GFR (African American) 106 ML/MIN (>60); Globulin 3.1 g/dL (1.3-3.2); Glucose 220 mg/dl (74-100); Total Protein,Serum 7.3 g/dl (6.3-8.2)
[2024-12-04 17:36] LABS: C-Reactive Protein 24.2 mg/L (0-4)
== END 2024-12-04 23:59 | disposition home or self-care (01) ==
LOC: LAB 16:10
PROVIDERS: PCP Nurse Practitioner Family; Visit Provider Nurse Practitioner
DX: E11.621 Type 2 diabetes mellitus with foot ulcer (principal); L97.519 Non-pressure chronic ulcer of other part of right foot with unspecified severity; M79.673 Pain in unspecified foot
CPT/HCPCS: 36415; 73630; 80053; 85025; 85651; 86140; 87070; 87077; 87186; 87205

== ENCOUNTER 2024-12-25 14:56 | Outpatient (CLI) | payer MEDICARE, SELFPAY ==
[2024-12-25] MEDS: ALBUTEROL 0.083% 2.5 MG/3 ML NEB IH (15:49)
--- NOTE | 2024-12-25 15:49 | PC.NURSE ---
PFT and 6 Minute Walk test completed without incident. Albuterol 0.083% given via HHN, per written protocol, Pt tolerated tx well.
== END 2024-12-25 23:59 | disposition home or self-care (01) ==
LOC: RT 14:56
PROVIDERS: PCP Nurse Practitioner Family; Visit Provider Internal Medicine Pulmonary Disease
DX: J44.9 Chronic obstructive pulmonary disease, unspecified (principal); R94.2 Abnormal results of pulmonary function studies
CPT/HCPCS: 94010; 94618; 94727; 94729

== ENCOUNTER 2025-01-07 16:19 | Outpatient (CLI) | payer MEDICARE, SELFPAY ==
--- OUTSIDE RECORDS SUMMARY | 2025-01-07 16:22 | XMS_ITS | Clinical Summary ---
Author Organization [facility] Address [address] [place] [id number] Care Team Providers Care Assistant Guest Services Manager Name Role Phone Pierce Borges MD Primary Care Provider + Allergies No known active allergies Medications atorvastatin (LIPITOR) 40 MG tablet Take 40 mg by mouth Daily. 2 Active Jardiance 25 MG tablet tablet Take 25 mg by mouth Daily. 2 Active metFORMIN (GLUCOPHAGE) 1000 MG tablet Take 1,000 mg by mouth 2 (Two) Times a Day. 2 Active metoprolol succinate XL (TOPROL-XL) 50 MG 24 hr tablet Take 50 mg by mouth Daily. 2 Active Entresto 24-26 MG tablet Take 1 tablet by mouth 2 (Two) Times a Day. 2 Active Ozempic, 0.25 or 0.5 MG/DOSE, 2 MG/1.5ML solution pen-injector Inject 0.5 mg under the skin into the appropriate area as directed 1 (One) Time Per Week. 2 Active Brilinta 90 MG tablet tablet Take 90 mg by mouth 2 (Two) Times a Day. 2 Active aspirin 81 MG EC tablet Take 81 mg by mouth Daily. Active furosemide (LASIX) 40 MG tablet Take 1 tablet by mouth Daily As Needed (edema). 30 tablet 1 2 Active Active Problems Problem Noted Date Diagnosed Date Pure hypercholesterolemia 08/25/2021 Primary hypertension 08/25/2021 Ischemic cardiomyopathy 08/25/2021 Coronary artery disease invo lving [place] coronary artery of [place] heart without angina pectoris 08/25/2021 Family History Medical History Relation Name Comments Diabetes Mother Relation Name Status Comments Father Mother Alive Sister Alive Social History Tobacco Use Types Packs/Day Years Used Date Smoking Tobacco: Former Cigarettes Q uit: 05/2021 Smokeless Tobacco: Never Alcohol Use Standard Drinks/Week Comments Never 0 (1 standard drink = 0.6 oz pur e alcohol) Abuse Screen Answer Date Recorded Unsafe at Home or Work/School Not on file Feels Threatened by Someone? Not on file Does Anyone Keep You from Co ntacting Others or Doint Things Outside the Home? Not on file 03/24/2023 Physical Sign of Abuse Present Not on file 1 Housing Stability Answer Date Recorded Current Living Arrangements Not on file 03/12 Potentially Unsafe Housing Conditions Not on ibrahima e 03/24/2023 Family and Community Support Answer Agusto e Recorded Help with Day-to-Day Activities Not on file 03/24/2023 Lonely or Isolated Not on file 03/24/2023 Employment Answer Date Recorded Do you want help finding or keeping work or a geo b? Not on file 03/24/2023 Disabilities Answer Date Recorded Concentrating, Remembering, or Making Decisions Difficulty Not on file 03/24/2023 Doing Errands Independently Difficulty Not on fi le 03/24/2023 Education Answer Date Recorded Help with school or training? Not on file Preferred Language Not on file 03/24/2023 Sex and Gender Information Value Date Recorded Sex Assigned at Not on file Legal Sex Male 1:41 PM EST Gender Identity Not on file Sexual Orientation Not on file Last Filed Vital Signs Vital Sign Reading Time Taken Comments Blood Pressure 110/72 08/25/2021 9:17 AM EDT Pulse 83 08/25/2021 9:17 AM EDT Temperature - - Respiratory Rate - - Oxygen Saturation 97% 08/25/2021 9:17 AM EDT Inhaled Oxygen Concentration - - Weight 128 kg (282 lb) 08/25/2021 9:17 AM EDT Height 195.6 cm (6' 5 ) 08/25/2021 9:17 AM EDT Body Mass Index 33.44 08/25/2021 9:17 AM EDT Plan of Treatment Health Maintenance Due Date Last Done Comments LIPID PANEL 1968 TDAP/TD VACCINES (1 - Tdap) 12/11/1987 COLOGUARD 2013 COLON CANCER SCREENING 5 YEAR SIGMOIDOSCOPY 2013 COLONOSCOPY 2013 [address] CANCER SCREENING 2013 CT COLONOGRAPHY 2013 FECAL OCCULT BLOOD TEST 2013 FIT Testing (1 year) 2013 Pneumococcal Vaccine 50+ (1 of 1 - PCV) 2018 ZOSTER VACCINE (1 of 2) 2018 ANNUAL PHYSICAL 08/25/2021 HEPATITIS C SCREENING 08/25/2021 COVID-19 Vaccine (1 - 2023- season) 2024 INFLUENZA VACCINE 03/12/2025 Care Teams Assistant Guest Services Manager Relationship Specialty Start Date End Date Pierce Borges MD PCP - General Family Medicine 07/29/21
--- NOTE | 2025-01-07 17:00 | MR_ITS ---
PROCEDURE INFORMATION: Exam: MR Right Lower Extremity Other Than Joint Without and With Contrast; Foot Exam date and time: 01/07/2025 4:38 PM Age: 54 years old Clinical indication: Pressure ulcer to right foot , marker placed; Additional info: Eval ofpressure-induced deep tissue of right foot TECHNIQUE: Imaging protocol: Magnetic resonance imaging of the right lower extremity without and with contrast. Exam focused on the foot. Contrast material: PROHANCE; Contrast volume: 24 ml; Contrast route: IV; COMPARISON: CR XR FOOT WT BEARING RT 3V 12/04/2024 4:26 PM FINDINGS: Bones/joints: Superficial ulceration identified medial to the 1st metatarsal head region. There is no evidence for decreased T1 signal to suggest osteomyelitis. There is trace reactive edema and enhancement within the medial aspect of the 1st metatarsal head region. Mild hammertoe deformity 2nd through 5th digits. LIGAMENTS: Lisfranc ligament: Unremarkable. No evidence of tear. TENDONS: Flexor tendons of foot: Unremarkable. No evidence of tear. Tibialis posterior tendon: Unremarkable as visualized. Peroneal tendons: Unremarkable as visualized. Extensor tendons of foot: Unremarkable. No evidence of tear. Tibialis anterior tendon: Unremarkable as visualized. Tarsal canal (Sinus tarsi): Unremarkable. Tarsal tunnel: Unremarkable. 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 Plantar fascia: Unremarkable as visualized. IMPRESSION: 1. Superficial ulceration identified medial to the 1st metatarsal head region. There is no evidence for decreased T1 signal to suggest osteomyelitis. There is trace reactive edema and enhancement within the medial aspect of the 1st metatarsal head region. 2. Mild hammertoe deformity 2nd through 5th digits. 3. 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
[2025-01-07 17:04] LABS: Hematocrit 49.6 % (42.0-52.0); Hemoglobin 16.2 g/dL (14.1-18.0); Immature Granulocytes % 0.4 %; Mean Corpuscular HGB Conc 32.7 g/dL (31.8-35.4); Mean Corpuscular Hemoglobin 29.5 pg (27.0-31.2); Mean Corpuscular Volume 90.3 fl (80-94); Nucleated Red Blood Cells % 0 %; Platelet Count 180 K/mm3 (142-424); Red Blood Count 5.49 M/mm3 (4.60-6.20); Red Cell Distribution Width-SD 49.1 fL; White Blood Count 11.2 K/mm3 (4.8-10.8)
[2025-01-07 17:16] LABS: Albumin Level 3.8 g/dl (3.5-5.0); Chloride 97 mmol/L (98-107); Potassium 4.5 mmoL/L (3.5-5.1); Sodium 132 mmol/L (136-145)
[2025-01-07 17:19] LABS: Albumin/Globulin Ratio 1.1 (1.1-1.8); Alkaline Phosphatase 78 U/L (38-126); Calcium 10.0 mg/dl (8.4-10.2); Globulin 3.6 g/dL (1.3-3.2); Glucose 250 mg/dl (74-100); Total Protein,Serum 7.4 g/dl (6.3-8.2)
[2025-01-07 17:25] LABS: C-Reactive Protein 42.6 mg/L (0-4)
[2025-01-07 17:45] LABS: Alanine Aminotransferase 21 U/L (12-78); Albumin Level 4.3 g/dl (3.5-5.0); Alkaline Phosphatase 74 U/L (38-126); Aspartate Amino Transferase 25 U/L (17-59); Bilirubin,Direct 0.2 mg/dl (0.0-0.4); Bilirubin,Indirect 0.1 mg/dL (0.0-0.9); Bilirubin,Total 0.3 mg/dl (0.2-1.3); Bilirubin,Unconjugated 0.1 mg/dL (0.0-1.1); Cholesterol 205 mg/dl (140-200); HDL Cholesterol 27 mg/dl (40-60); Total Protein,Serum 7.0 g/dl (6.3-8.2)
[2025-01-07 17:49] LABS: Digoxin 0.50 ng/ml (0.2-2.00)
[2025-01-07 17:50] LABS: Triglycerides 446 mg/dl (30-150)
[2025-01-07 17:50] LABS: Hemoglobin A1C 10.4 % (4.0-6.0)
[2025-01-07 17:53] LABS: Alanine Aminotransferase 23 U/L (12-78); Anion Gap 13.5 mEq/L (5-15); Aspartate Amino Transferase 26 U/L (17-59); Bilirubin,Total 0.3 mg/dl (0.2-1.3); Blood Urea Nitrogen 26 mg/dl (9-20); Carbon Dioxide 26 mmol/L (22.0-30.0); Creatinine,Serum 1.00 mg/dl (0.66-1.25); Estimated Glomerular Filt Rate 77 ml/min (>60); GFR (African American) 94 ML/MIN (>60)
[2025-01-07] MEDS: SODIUM CHLORIDE 0.9% 10ML SYR (RAD ONLY) 10 ML IV (17:57)
[2025-01-07] MEDS: GADOTERIDOL INJ 10ML SYRINGE 4 ML IV (17:57)
[2025-01-07] MEDS: GADOTERIDOL INJ 20ML SYRINGE 20 ML IV (17:57)
== END 2025-01-07 23:59 | disposition home or self-care (01) ==
LOC: RAD 16:20
PROVIDERS: Nurse Practitioner; PCP Nurse Practitioner Family; Visit Provider Nurse Practitioner
DX: E11.621 Type 2 diabetes mellitus with foot ulcer (principal); L97.519 Non-pressure chronic ulcer of other part of right foot with unspecified severity; M20.41 Other hammer toe(s) (acquired), right foot; R93.6 Abnormal findings on diagnostic imaging of limbs; R60.0 Localized edema; L89.896 Pressure-induced deep tissue damage of other site; I42.2 Other hypertrophic cardiomyopathy; I11.9 Hypertensive heart disease without heart failure; I50.32 Chronic diastolic (congestive) heart failure; I25.10 Atherosclerotic heart disease of native coronary artery without angina pectoris; R78.89 Finding of other specified substances, not normally found in blood; Z95.5 Presence of coronary angioplasty implant and graft
CPT/HCPCS: 36415; 73720; 80053; 80061; 80076; 80162; 83036; 85025; 85651; 86140; A9576

== ENCOUNTER 2025-02-03 15:15 | Outpatient (CLI) | payer MEDICARE, SELFPAY ==
--- OUTSIDE RECORDS SUMMARY | 2025-02-03 15:18 | XMS_ITS | Clinical Summary ---
Author Organization [facility] Address [address] [place] [id number] Care Team Providers Care Wastewater Process Engineer Name Role Phone Pierce Borges MD Primary [...] cardiomyopathy 08/25/2021 Coronary artery disease invo lving [place] coronary artery of [place] heart without angina pectoris 08/25/2021 Family History [...] season) 2024 INFLUENZA VACCINE 03/12/2025 Care Teams Wastewater Process Engineer Relationship Specialty Start Date End Date Pierce Borges MD PCP - General Family Medicine 07/29/21
--- NOTE | 2025-02-03 15:30 | US_ITS ---
FINAL REPORT CLINICAL HISTORY: CLAUDICATION RLE,REST PAIN RLE,SMOKER,CAD,DM,HTN,WOUND RT FOOT FINDINGS: ANKLE-BRACHIAL PRESSURE INDICES Pressure indices are as follows: RIGHT LOWER EXTREMITY: Ankle-brachial pressure index: 0.56 Comments: Moderate disease LEFT LOWER EXTREMITY: Ankle-brachial pressure index: 1.04 Comments: Normal IMPRESSION: Moderate peripheral vascular disease on the right. No evidence of peripheral vascular disease on the left. Reviewed, Interpreted and Dictated by Viktoriya Van MD Transcribed by Fariha Belcher Authenticated and [facility]
== END 2025-02-03 23:59 | disposition home or self-care (01) ==
LOC: RT 15:16
PROVIDERS: PCP Nurse Practitioner Family; Visit Provider Nurse Practitioner
DX: I73.9 Peripheral vascular disease, unspecified (principal); M79.604 Pain in right leg; F17.200 Nicotine dependence, unspecified, uncomplicated; I25.10 Atherosclerotic heart disease of native coronary artery without angina pectoris; E11.9 Type 2 diabetes mellitus without complications; I10 Essential (primary) hypertension
CPT/HCPCS: 93923

== ENCOUNTER 2025-02-18 07:37 | Outpatient (CLI) | payer MEDICARE, SELFPAY ==
--- OUTSIDE RECORDS SUMMARY | 2025-02-18 07:40 | XMS_ITS | Clinical Summary ---
Author Organization [facility] Address [address] [place] [id number] Care Team Providers Care Pens And Pencils Dipper Name Role Phone Pierce Borges MD Primary [...] cardiomyopathy 08/25/2021 Coronary artery disease invo lving [place] coronary artery of [place] heart without angina pectoris 08/25/2021 Family History [...] C SCREENING 08/25/2021 COVID-19 Vaccine (1 - season) 2025 INFLUENZA VACCINE 03/12/2025 Care Teams Pens And Pencils Dipper Relationship Specialty Start Date End Date Pierce Borges MD PCP - General Family Medicine 07/29/21
[2025-02-18 08:00] LABS: Blood Urea Nitrogen 35 mg/dl (9-20); Creatinine,Serum 1.20 mg/dl (0.66-1.25); Estimated Glomerular Filt Rate 63 ml/min (>60); GFR (African American) 76 ML/MIN (>60)
--- NOTE | 2025-02-18 08:00 | CT_ITS ---
FINAL REPORT TECHNIQUE: Post contrast axial imaging of the aorta and bilateral lower extremity was obtained and reviewed.This study was performed with techniques to keep radiation doses as low as reasonably achievable (ALARA). Individualized dose reduction techniques using automated exposure control or adjustment of mA and/or kV according to the patient''s size were employed. CLINICAL HISTORY: abnl onel COMPARISON: None FINDINGS: No aortic aneurysm or dissection. The celiac axis, superior mesenteric artery and inferior mesenteric artery are patent without stenosis. There is no evidence of renal artery stenosis. The iliac arteries are patent. There is atherosclerotic disease. The bilateral external iliac and bilateral internal iliac arteries are patent proximally. The distal aspects of the bilateral internal iliac arteries are difficult to evaluate due to dense calcification RIGHT: There is partially calcified plaque within the right common femoral artery with at least 50 to 60% stenosis. The right superficial femoral artery is occluded at its origin. The profunda artery is patent through the mid thigh. There is reconstitution of the distal superficial femoral artery at the level of the adductor hiatus from collaterals. The popliteal artery is patent. There is a three-vessel runoff in the calf to the ankle. LEFT: The left common femoral artery is patent. The left superficial femoral artery and profunda are patent without significant stenosis. The left popliteal artery is patent. There is a three-vessel runoff in the calf to the ankle. Review of the remaining abdomen and pelvis demonstrates no evidence of mass or adenopathy. There is no fluid collection or acute inflammatory process. IMPRESSION: 1. 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 2. No abdominal aortic aneurysm. Authenticated and [facility]
[2025-02-18] MEDS: SODIUM CHLORIDE 0.9% 10ML SYR (RAD ONLY) 10 ML IV (08:42)
[2025-02-18] MEDS: 0.9 % SODIUM CHLORIDE 50 ML VIAL 100 ML IV (08:42)
[2025-02-18] MEDS: IOPAMIDOL-370 (76%);100ML BOTTLE 120 ML IV (08:43)
== END 2025-02-18 23:59 | disposition home or self-care (01) ==
LOC: RAD 07:38
PROVIDERS: PCP Nurse Practitioner Family; Visit Provider Physician Assistant
DX: I70.201 Unspecified atherosclerosis of native arteries of extremities, right leg (principal); E11.621 Type 2 diabetes mellitus with foot ulcer; L97.519 Non-pressure chronic ulcer of other part of right foot with unspecified severity; I42.2 Other hypertrophic cardiomyopathy; E11.65 Type 2 diabetes mellitus with hyperglycemia; R94.31 Abnormal electrocardiogram [ECG] [EKG]; I11.0 Hypertensive heart disease with heart failure; I50.32 Chronic diastolic (congestive) heart failure; R78.89 Finding of other specified substances, not normally found in blood; Z86.711 Personal history of pulmonary embolism; L97.529 Non-pressure chronic ulcer of other part of left foot with unspecified severity; I25.10 Atherosclerotic heart disease of native coronary artery without angina pectoris; E78.5 Hyperlipidemia, unspecified; L89.96 Pressure-induced deep tissue damage of unspecified site; R20.8 Other disturbances of skin sensation
CPT/HCPCS: 36415; 75635; 82565; 84520; Q9967

== ENCOUNTER 2025-03-11 08:37 | Day surgery (SDC) | payer MEDICARE, SELFPAY ==
[2025-03-11] VITALS (11 sets, daily range): BP systolic 123–140; BP diastolic 68–88; PULSE 74–97; RESP 18–21; TEMP 36.1–36.6; O2SAT 90–95; BMI 31.4
--- NOTE | 2025-03-11 07:06 | IR_ITS ---
APPROVED REPORT Patient Location: Outpatient PROCEDURES Catheter placement in the abdominal aorta Abdominal aortography Repositioning of the catheter in the abdominal aorta Bilateral iliofemoral runoff INDICATION Ifeanyi claudication class V, Abnormal CTA, Peripheral artery disease Informed consent was obtained prior to the procedure. COMPLICATIONS NONE Estimated Blood Loss: LESS THAN 10 ML TECHNIQUE 1% lidocaine used to anesthetize the left femoral groin. The left femoral artery was accessed via the Seldinger technique. A 5 Pashto sheath was placed in the left femoral artery and a pigtail catheter was advanced into the distal abdominal aorta under fluoroscopic guidance. Abdominal aortography was performed. The catheter was then repositioned and bilateral iliofemoral runoff was performed. At the end the procedure the apparatus was removed the groin is reprepped closure change sheath was removed and hemostasis was achieved using Perclose device after an Angio-Seal device could not be deployed due to technical issues. The patient was transferred to the postop holding area in stable condition ANGIOGRAPHIC RESULTS Distal abdominal aorta has an eccentric focal 20 to 30% atheromatous plaque Bilateral common iliac arteries are atherosclerotic with no focal stenosis greater than 20% Both external iliac arteries are patent with 20 and 30% stenosis Both internal iliac arteries are patent Right common femoral artery has an eccentric calcified 30% stenosis. The right superficial femoral artery is occluded 1 cm distal to its origin and occluded throughout its entire course. The profunda femoris artery has a proximal 40 to 50% concentric stenosis but is otherwise patent and then collateralizes a popliteal artery just distal to Anthony's canal. The popliteal artery has proximal 70% stenoses with an additional 70% long calcified stenosis. The PT trunk is widely patent and there is three-vessel runoff below the knee on the right Left common femoral artery is mildly atheromatous and calcified but otherwise patent. The left profunda femoris artery is widely patent the left superficial femoral artery is widely patent with diffuse 10 to 20% atheromatous plaque. In Anthony's canal the proximal popliteal artery has eccentric 30% calcified stenosis and a mid vessel calcified 40% eccentric stenosis with a 40% concentric stenosis. It gives rise to the anterior and posterior tibialis artery as well as the peroneal artery with three-vessel runoff to the left ankle IMPRESSION Peripheral artery disease as described above most notably a chronically occluded right superficial femoral artery which is collateralized via the profunda femoris into the popliteal artery with three-vessel runoff below the knee on the right PLAN 1. Recommend medical management. Patient's last hemoglobin A1c exceeded 10 therefore I strongly recommend tighter control of the diabetes to improve lower extremity ulcer healing 2. At this point I would like to give medical management more consideration. If there is limb threatening ischemia it is possible to place a stent in the ostial segment of the right SFA however it is extremely close to the origin of the common femoral artery and given the significant risk for compressing the profunda femoris artery I do not believe it is advised at this time 3. LDL less than 55 to be achieved with high intensity statin 4. Avoidance of tobacco products 5. Recommend physical therapy Electronically signed by : Humberto Marie MD 03/11/2025 13:03:03
[2025-03-11 09:02] LABS: Hematocrit 48.5 % (42.0-52.0); Hemoglobin 16.1 g/dL (14.1-18.0); Immature Granulocytes % 0.6 %; Mean Corpuscular HGB Conc 33.2 g/dL (31.8-35.4); Mean Corpuscular Hemoglobin 31.0 pg (27.0-31.2); Mean Corpuscular Volume 93.3 fl (80-94); Nucleated Red Blood Cells % 0 %; Platelet Count 211 K/mm3 (142-424); Red Blood Count 5.20 M/mm3 (4.60-6.20); Red Cell Distribution Width-SD 46.3 fL; White Blood Count 10.8 K/mm3 (4.8-10.8)
[2025-03-11 09:09] LABS: Anion Gap 14.1 mEq/L (5-15); Blood Urea Nitrogen 20 mg/dl (9-20); Calcium 9.4 mg/dl (8.4-10.2); Carbon Dioxide 25 mmol/L (22.0-30.0); Chloride 102 mmol/L (98-107); Creatinine Clearance Estimated 156 mL/min (50-200); Creatinine,Serum 0.90 mg/dl (0.66-1.25); Estimated Glomerular Filt Rate 87 ml/min (>60); GFR (African American) 106 ML/MIN (>60); Glucose 212 mg/dl (74-100); Potassium 4.1 mmoL/L (3.5-5.1); Sodium 137 mmol/L (136-145)
[2025-03-11] MEDS: HEPARIN 1,000 UNITS/500ML NS (CATH LAB) 3000 UNIT IV (11:34)
[2025-03-11] MEDS: LIDOCAINE 1% 10ML MDV 10 ML IJ (11:35)
[2025-03-11] MEDS: 0.9 % SODIUM CHLORIDE 500 ML 25 ML IV (11:35)
[2025-03-11] MEDS: MIDAZOLAM HCL 1MG/ML 5ML VIAL 1 MG IV (12:07)
[2025-03-11] MEDS: FENTANYL 100MCG/2ML VIAL 50 MCG IV (12:10)
[2025-03-11] MEDS: IOHEXOL-240 100ML BOTTLE 150 ML IV (13:40)
== END 2025-03-11 15:10 | disposition home or self-care (01) ==
PROVIDERS: PCP Nurse Practitioner Family; Visit Provider Internal Medicine
DX: I73.9 Peripheral vascular disease, unspecified (principal); E11.621 Type 2 diabetes mellitus with foot ulcer; E11.65 Type 2 diabetes mellitus with hyperglycemia; L97.519 Non-pressure chronic ulcer of other part of right foot with unspecified severity; Z79.899 Other long term (current) drug therapy; Z79.85 Long-term (current) use of injectable non-insulin antidiabetic drugs; Z79.4 Long term (current) use of insulin; J44.9 Chronic obstructive pulmonary disease, unspecified; R59.0 Localized enlarged lymph nodes; F17.210 Nicotine dependence, cigarettes, uncomplicated; I11.0 Hypertensive heart disease with heart failure; I50.42 Chronic combined systolic (congestive) and diastolic (congestive) heart failure; F41.9 Anxiety disorder, unspecified; I25.5 Ischemic cardiomyopathy; G47.33 Obstructive sleep apnea (adult) (pediatric); I45.10 Unspecified right bundle-branch block; I25.119 Atherosclerotic heart disease of native coronary artery with unspecified angina pectoris; E78.5 Hyperlipidemia, unspecified; I25.2 Old myocardial infarction; Z95.5 Presence of coronary angioplasty implant and graft; I42.2 Other hypertrophic cardiomyopathy; Z86.711 Personal history of pulmonary embolism
CPT/HCPCS: 36140; 80048; 85025; 99152; 99153; C1725; C1760; C1769; C1894; J1200; J1644; J2003; J3010; J7040; Q9966

== ENCOUNTER 2025-04-01 10:46 | Outpatient (CLI) | payer MEDICARE, SELFPAY ==
--- OUTSIDE RECORDS SUMMARY | 2025-04-02 15:16 | XMS_ITS | Clinical Summary ---
Author Organization [facility] Address [address] [place] [phone] Care Team Providers Care County Engineer Name Role Phone Pierce Borges MD [...] cardiomyopathy 08/25/2021 Coronary artery disease invo lving [place] coronary artery of [place] heart without angina pectoris 08/25/2021 Family History [...] ANNUAL PHYSICAL 08/25/2021 HEPATITIS C SCREENING 08/25/2021 INFLUENZA VACCINE 01/10/2025 Care Teams County Engineer Relationship Specialty Start Date End Date Pierce Borges MD PCP - General Family Medicine 07/29/21
== END 2025-04-01 23:59 | disposition home or self-care (01) ==
LOC: LAB.DROPOF 04-02 14:21
PROVIDERS: PCP Nurse Practitioner; Visit Provider Nurse Practitioner
DX: E11.621 Type 2 diabetes mellitus with foot ulcer (principal); L97.519 Non-pressure chronic ulcer of other part of right foot with unspecified severity
CPT/HCPCS: 87070; 87205

== ENCOUNTER 2025-05-14 16:46 | Outpatient (CLI) | payer MEDICARE, SELFPAY ==
--- OUTSIDE RECORDS SUMMARY | 2025-05-14 16:48 | XMS_ITS | Clinical Summary ---
Author Organization [facility] Address [address] [place] [phone] Care Team Providers Care Cataract Lens Generator Name Role Phone Pierce Borges MD Primary [...] cardiomyopathy 08/25/2021 Coronary artery disease invo lving [place] coronary artery of [place] heart without angina pectoris 08/25/2021 Family History [...] SCREENING 08/25/2021 INFLUENZA VACCINE 01/10/2025 Care Teams Cataract Lens Generator Relationship Specialty Start Date End Date Pierce Borges MD PCP - General Family Medicine 07/29/21
== END 2025-05-14 23:59 | disposition home or self-care (01) ==
LOC: LAB.DROPOF 16:46
PROVIDERS: PCP Nurse Practitioner Family; Visit Provider Nurse Practitioner
DX: E11.621 Type 2 diabetes mellitus with foot ulcer (principal); L97.519 Non-pressure chronic ulcer of other part of right foot with unspecified severity
CPT/HCPCS: 87070; 87077; 87205

== ENCOUNTER 2025-06-03 15:00 | Outpatient (RCR) | payer MEDICARE, SELFPAY ==
--- NOTE | 2025-05-16 15:59 | HMH.PTOPWND ---
Rehab Wound Evaluation Rehab OP Wound Evaluation Start: 05/16/25 15:47 Freq: Status: Active Protocol: Document 05/16/25 15:48 JESSICA (Rec: 05/16/25 15:59 PHORJAYESH [id number]) E-signed By Nigel Fuchs, PT Subjective/History History History This is the initial PT wound care eval for Humberto Goodman , 54 yowm who presents with c/o R foot open wounds x 7- 8 mos overall with delayed healing due to DM-II. He reports no pain in the medial foot wound, but increased pain in the lateral foot wound, especially with standing. He has PMH of DM-II, PAD, CAD with OK x 2 and stents x 12. Subjective Subjective 2/4 TTP to the lateral R foot wound this date. neuropathy noted from R mid-foot distally. Considerable dry skin and hyperkeratosis throughout the R foot. Wound Eval Wound Right Medial Great Toe Wound Type Diabetic Foot Ulcer Is This a Chronic Yes Wound Wound Length (cm) 1.4 Wound Width (cm) 1.8 Wound Depth (cm) 0.5 Wound Bed Appearance Yellow Percentage of Slough 100 (%) Wound Margins Well Defined Description Surrounding Tissue [place] Appearance Drainage Description Purulent Drainage Amount Small Drainage Odor No Odor Wound Topical Saline Irrigant Solution/Irrigant Primary Dressing Silver Dressing Comment opticell Ag Wound Secondary Composite Dressing Type Wound Debridement Sharps,Forceps,Gauze,Mechanical Method Wound Debridement Minimal Amount of Tissue Removed Dressing Change Tolerated Well Patient Tolerance Right Lateral Toe - 5th Digit Wound Type Diabetic Foot Ulcer Is This a Chronic Yes Wound Wound Length (cm) 2.1 Wound Width (cm) 2.3 Wound Depth (cm) 0.1 Wound Bed Appearance Beefy Red Percentage 100 Granulated (%) Wound Margins Well Defined Description Surrounding Tissue Melissa Appearance Drainage Description Serosanguineous Drainage Amount Small Primary Dressing collagen Comment puracol Wound Secondary Composite Dressing Type Wound Debridement Sharps,Gauze,Mechanical Method Wound Debridement Minimal Amount of Tissue Removed Dressing Change Tolerated Well Patient Tolerance Fortune-Rivera Wound Assessment Tool Assessment Wound size 2=Length x Width 4--<16 sq cm Wound depth 3=Full thickness skin loss involving damage or necrosis of Wound edges 3=Well-defined, not attached to wound base Wound undermining 2=Undermining <2 cm in any area Necrotic tissue type 3=Loosely adherent yellow slough Necrotic tissue 5=75% to 100% of wound covered amount Exudate type 5=Purulent: thin or thick, opaque, vidal/yellow, withour without odor Exudate amount 3=Small Skin color 1=[place] or normal for ethnic group surrounding wound Peripheral tissue 1=No swelling or edema edema Peripheral tissue 1=None present induration Granulation tissue 5=No granulation tissue present Epithelialization 5= < 25% wound covered Wound assessment 39 total score Wound Problems/Impairments Impairments Problems/ Palpation Tenderness,Impaired Strength,Impaired Impairmments Endurance,Impaired Transfers,Impaired Gait Pattern, Impaired Walking,Impaired Standing,Impaired Dressing, Impaired Shower/Bathing,Impaired Household Care, Impaired Stair Climbing,Impaired Incline Stepping, Impaired Stepping on Uneven Surface,Impaired Recreational Activities,Impaired Balance,Wound Care Needs,Subjective C/O Pain,Impaired Self Care/Self Management Prognosis Rehab Potential Good Comment Skilled therapy is indicated to reduce total wound surface area in order to improve pt functional mobility and return pt to OF. Clinical Impression Consistent with Yes Diagnosis Wound Patient Goals Wound Patient Goals Wound Short Term In 4 wks pt will complete these goals in order to aid Patient Goals improvement in function specifically with all ADLs: 1) Decrease total wound surface area by 25% Wound Nursing Home In 8 wks pt will complete these goals in order to aid Patient Goals improvement in function specifically with all ADLs: 1) Decrease total wound surface area by 75% 2) Have 0/10 pain with standing or walking. Outpatient Therapy Plan of Care Treatment Plan May Include Therapeutic Exercise Yes Including Home Exercise Program Manual Therapy Yes Techniques Neuromuscular Re- Yes education Therapeutic Yes Activities to Return to Previous Functional/Work Level ADL/Self Care Yes Education Ultrasound/ Yes Phonophoresis Wound Care Yes Eval/Re-Eval Yes Frequency Times per week 2 Duration Number of Weeks 8 Addendums This patient is a No candidate for social or vocational rehab ? Patient/Guardian Yes verbally acknowledges understanding of treatment program and consents to further treatment? Patient/Guardian Yes verbally acknowledges understanding of diagnosis, prognosis and goals for treatment? Eval Complexity PT Charges 03679 - High Complexity PHYSICIAN CERTIFICATION: I certify the specified therapy services for Humberto Case are required, authorized, and reviewed every 30 days.
== END 2025-06-03 23:59 | disposition home or self-care (01) ==
LOC: PT 15:00
PROVIDERS: PCP Nurse Practitioner Family; Visit Provider Nurse Practitioner
DX: E11.621 Type 2 diabetes mellitus with foot ulcer (principal); L97.512 Non-pressure chronic ulcer of other part of right foot with fat layer exposed
CPT/HCPCS: 97163